=== PATIENT | male | born 1935 | race Caucasian/White ===

== ENCOUNTER 2019-05-01 11:08 | Outpatient (CLI) | payer MEDICARE, SELFPAY ==
[2019-05-01 12:34] LABS: ALT 37 U/L (12-78); AST 19 U/L (15-37); Albumin 3.7 g/dL (3.4-5.0); Alkaline Phosphatase 75 U/L (46-116); Anion Gap 9.2 mmol/L (3-11); BUN 15 mg/dL (7-18); Bilirubin, Total 0.4 mg/dL (0.2-1.0); CO2 26.8 mmol/L (21.0-32.0); CREATININE 1.11 mg/dL (0.70-1.30); Calcium 8.9 mg/dL (8.5-10.1); Chloride 104 mmol/L (98-107); Glucose 114 mg/dL (70-100); Potassium 3.8 mmol/L (3.5-5.1); Sodium 140 mmol/L (136-145); Total Protein 7.3 g/dL (6.4-8.2)
[2019-05-01 12:42] LABS: HCT 43.9 % (40.0-50.0); HGB 14.4 g/dL (13.5-17.5); Mean Corp. HGB Concentration 32.8 g/dL (32.0-36.0); Mean Corpuscular Hemoglobin 29.5 pg (27.0-33.0); Mean Platelet Volume 9.5 fL (8.0-11.0); Platelet Count 327 x1000/uL (130-400); RBC 4.88 m/cumm (4.50-6.00); White Blood Cell Count 5.85 k/cumm (4.4-10.8)
== END 2019-05-01 11:28 ==
PROVIDERS: PCP Emergency Medicine; Visit Provider Emergency Medicine
DX: E78.00 Pure hypercholesterolemia, unspecified (principal); I10 Essential (primary) hypertension
CPT/HCPCS: 36415; 80053; 85027

== ENCOUNTER 2020-03-24 18:34 | Outpatient (REF) | payer MEDICARE, SELFPAY ==
[2020-03-24 14:10] LABS: Abs Immature Grans 0.01 k/cumm (0.0-0.09); Absolute Basophil Count 0.03 k/cumm (0.0-0.2); Absolute Eosinophil Count 0.13 k/cumm (0.0-0.7); Absolute Lymphocyte Count 2.36 k/cumm (1.2-3.4); Absolute Monocyte Count 0.44 k/cumm (0.11-0.7); Absolute Neutrophil Count 3.07 k/cumm (1.2-6.7); Basophils % 0.5; Eosinophils % 2.2; HGB 14.3 g/dL (13.5-17.5); Immature Grans % 0.2 %; Lymphocytes % 39.1; Mean Corp. HGB Concentration 33.3 g/dL (32.0-36.0); Mean Corpuscular Hemoglobin 29.9 pg (27.0-33.0); Mean Corpuscular Volume 89.8 fL (80-95); Mean Platelet Volume 10.2 fL (8.0-11.0); Monocytes % 7.3; Neutrophils % 50.7; Platelet Count 315 x1000/uL (130-400); RBC 4.79 m/cumm (4.50-6.00); RBC Distribution Width 13.6 % (11.8-14.1); White Blood Cell Count 6.04 k/cumm (4.4-10.8)
[2020-03-24 14:20] LABS: ALT 40 U/L (16-63); AST 25 U/L (15-37); Albumin 4.1 g/dL (3.4-5.0); Alkaline Phosphatase 62 U/L (46-116); Anion Gap 9.1 mmol/L (3-11); BUN 19 mg/dL (7-18); Bilirubin, Total 0.7 mg/dL (0.2-1.0); C-Reactive Protein 0.07 mg/dL (0.0-0.3); CO2 27.9 mmol/L (21.0-32.0); CREATININE 1.28 mg/dL (0.70-1.30); Calcium 9.2 mg/dL (8.5-10.1); Chloride 102 mmol/L (98-107); Estimated GFR 53.67 (mL/min/1.73m2); Glucose 112 mg/dL (74-106); Potassium 3.7 mmol/L (3.5-5.1); Sodium 139 mmol/L (136-145); Total Protein 7.3 g/dL (6.4-8.2)
== END 2020-03-24 18:54 ==
LOC: LBN 18:34
PROVIDERS: PCP Emergency Medicine; Visit Provider Emergency Medicine
DX: G89.29 Other chronic pain (principal); R10.9 Unspecified abdominal pain; R19.7 Diarrhea, unspecified
CPT/HCPCS: 80053; 85025; 86140

== ENCOUNTER 2020-04-08 18:49 | Outpatient (REF) | payer MEDICARE, SELFPAY | END 2020-04-08 19:09 | LOC: LBN 18:49 | PROVIDERS: PCP Emergency Medicine; Visit Provider Emergency Medicine | DX: R19.7 Diarrhea, unspecified (principal) | CPT/HCPCS: 87324 ==

== ENCOUNTER → 2020-04-27 10:31 | Outpatient (BNVA) | payer MEDICARE, SELFPAY | PROVIDERS: PCP Emergency Medicine; Referring Provider Emergency Medicine; Visit Provider Surgery | DX: Z12.11 Encounter for screening for malignant neoplasm of colon (principal); R19.7 Diarrhea, unspecified; I10 Essential (primary) hypertension | CPT/HCPCS: 99202 ==

== ENCOUNTER 2020-05-05 09:19 | Day surgery (SDC) | payer MEDICARE, SELFPAY ==
--- NOTE | 2020-05-01 13:37 | NUR.NOTE ---
Patient reports he don't know his meds too good Patient advised to bring his medications in their bottles with him the day of his procedure. Patient is very MARSHALL. Nursing Note:
[2020-05-05 09:57] VITALS: BP 150/85; PULSE 67; RESP 16; TEMP 35.9; O2SAT 98
[2020-05-05] MEDS: Lactated Ringers 1,000 ML 80 ML IV (10:31)
--- NOTE | 2020-05-05 11:47 | PDOC.DSDIS_ITS ---
Discharge Plan Disposition Patient Disposition: HOME Condition: Good Discharge Details Reason For Visit: Colonoscopy Attending Provider: Yaneli De La Garza Primary Care Provider: Reji Mcintyre Home Meds and New Rx's Prescriptions: Continued hydrochlorothiazide 25 mg tablet 25 mg PO DAILY Qty: 90 RF: 4 lisinopril 20 mg tablet 20 mg PO DAILY Qty: 90 RF: 4 amlodipine [Norvasc] 10 mg tablet 10 mg PO QAM Qty: 90 RF: 4 aspirin 325 mg tablet,delayed release (DR/EC) 325 mg PO DAILY RF: 0 ascorbate calcium (vitamin C) 500 mg tablet 500 mg PO DAILY RF: 0 BP [place] PO DAILY RF: 0 Prostaxan PO DAILY RF: 0 omeprazole 20 mg capsule,delayed release(DR/EC) 20 mg PO DAILY RF: 0 pravastatin 10 mg tablet 10 mg PO DAILY RF: 0 Discontinued bisacodyl [Dulcolax (bisacodyl)] 5 mg tablet,delayed release (DR/EC) 5 mg PO ONCE Qty: 4 RF: 0 polyethylene glycol 3350 17 gram/dose powder 17 g PO ONCE Qty: 238 RF: 0 Discharge Instructions Additional Instructions: Findings: A large mass is present in the rectum and is the cause of your diarrhea. It appears to be a polyp but we need the biopsy results to say for certain. My office will contact you with biopsy results. Follow up: Plan for an office visit next week to discuss results. Please call if you develop: fevers >101.5 Nausea or Vomiting Abdominal pain that is not transient DAY SURGERY UNIT POST COLONOSCOPY INSTRUCTIONS 1. Because there will be medication in your system for the next 24 hours, you may feel a little sleepy. Your coordination will be affected. Therefore: a. Do not drive or operate dangerous equipment for 24 hours. b. Do not drink alcohol beverages for 24 hours (not even beer). c. Plan to go home and rest for the day. 2. Generally there are no restrictions on your activity after a day or so has gone by, but you may feel a bit fatigued for a few days. 3 After you arrive home you may have a light meal and return to a normal diet as you can tolerate it without feeling sick to your stomach. 4. After surgery, you may feel pain or discomfort. This should be only transient, but if it persists please contact your doctor. 5. If there are any questions regarding the findings of your procedure, please feel free to contact your doctor. 6. If you are unable to contact your doctor with a problem, contact the hospital at [phone]. 7. Continue all your regular medications unless directed otherwise. I understand the above instructions and have no questions. Signature of Patient or Responsible Adult Escort Date/Time Name of Responsible Adult Escort Signature of Nurse Date/Time Referrals: Yaneli De La Garza MD [ [facility] STAFF PHYSICIAN] - (Return next week to discuss biopsy results.) Activity:: Activity as Tolerated Diet:: As Tolerated Discharge Orders Discharge Orders: Discharge Order (Routine); Ordered 05/05/20 Ordered By: Yaneli De La Garza DS: Diagnosis Discharge Diagnosis (1) Rectal mass: Status: Acute
--- NOTE | 2020-05-05 11:48 | COLE_ITS ---
Date of service: 05/05/20 Time of Service: 12:47 Colonoscopy Report Date of procedure: 05/05/20 Pre-op diagnosis general: Screening Post-op diagnosis procedure note: other (Rectal mass, diverticulosis) Procedure: Colonoscopy with biopsy Surgeon: Yaneli De La Garza Anesthesia proc note operative: MAC Indications: This patient presents for his first colonoscopy. He does note an increase in stool frequency up to 8 times/day. Stool cultures negative. Procedure Description: The patient was placed in the left Retana position. Propofol was titrated to sedation. The scope was advanced to the cecum without difficulty. The ileocecal valve and appendiceal orifice were clearly id entified. The prep was good. The scope was slowly withdrawn over the course of greater than 6 minutes with no abnormalities seen in the ascending, transverse, descending, sigmoid colon with the exception of mild diverticulosis. In the rectum a large mass was present that appears to be a benign polyp. This is located a few cm from the anal opening and extends to about 15cm. Several biopsies are performed. JONATHAN reveals the mass to be more in the posterior rectum, slightly to the patient's left. The mid portion of the polyp base can be reached with the digital exam. The patient tolerated the procedure well and was stable to recovery. If the biopsies confirm a benign polyp, we will proceed with a transanal excision in the OR.
--- NOTE | 2020-05-05 12:28 | BOWEL_PTH ---
PATIENT: Geronimo Teague Sr LOC: [facility] U#:[id number] AGE/SX: 84/M ROOM: RE05/05/[address]: Yaneli De La Garza MD : [id number] BED: DIS: 05/05/2020 SPEC #: [id number] RECD: 05/05/20 12:55 STATUS: MARIOLA REQ #: [id number] ALIREZA: 05/05/20 12:[address]: Yaneli De La Garza DEPT: Surgical Specimen RECD BY: Latosha Quintero ENTERED: 05/05/20 12:55 SP TYPE: Bowel OTHR DR: Reji Mcintyre DO Tissues: 1 - BIOPSY BOWEL Procedures: GROSS AND MICRO LEVEL 4 Comments: [id number]
[2020-05-05 13:20] VITALS: BP 140/73; PULSE 98; RESP 16; TEMP 36.2; O2SAT 98
== END 2020-05-05 13:43 | disposition home or self-care (01) ==
PROVIDERS: PCP Emergency Medicine; Visit Provider Surgery
PROC: 0DJD8ZZ Inspection of Lower Intestinal Tract, Via Natural or Artificial Opening Endoscopic (ICD-10-PCS; CPT 45378; principal; 2020-05-05 10:15)
DX: Z12.11 Encounter for screening for malignant neoplasm of colon (principal); K57.30 Diverticulosis of large intestine without perforation or abscess without bleeding; D12.8 Benign neoplasm of rectum; I10 Essential (primary) hypertension; K21.9 Gastro-esophageal reflux disease without esophagitis; J44.9 Chronic obstructive pulmonary disease, unspecified
CPT/HCPCS: 45380; 88305; J2001

== ENCOUNTER → 2020-05-11 10:39 | Outpatient (BNVA) | payer MEDICARE, SELFPAY | PROVIDERS: PCP Emergency Medicine; Referring Provider Emergency Medicine; Visit Provider Surgery | DX: D37.5 Neoplasm of uncertain behavior of rectum (principal); I10 Essential (primary) hypertension | CPT/HCPCS: 99213 ==

== ENCOUNTER 2020-05-19 00:55 | Outpatient (CLI) | payer MEDICARE, SELFPAY ==
--- NOTE | 2020-05-19 09:26 | DI.US_ITS ---
APPROVED REPORT EXAM: Comprehensive 2D, Doppler, and color-flow Echocardiogram Patient Location: Out-Patient Entry Level Sales Associate: Jordyn Hernandez RDCS (AE) Other Information Study Quality: Fair Conclusion Normal left ventricular wall thickness and chamber size. Estimated ejection fraction is 60 to 65%. There are no segmental wall motion abnormalities Normal right ventricular size and systolic function Left atrium is mildly dilated Right atrium is normal in size The aortic valve is trileaflet and sclerotic with trace regurgitation and mild stenosis. Mean gradie nt is 12 mmHg, peak gradient 22 mmHg Moderate mitral annular calcification. Mild mitral regurgitation Structurally normal tricuspid and pulmonic valves. Trace pulmonic and tricuspid regurgitation. Norm al estimated right ventricular systolic pressure 24.6 mmHg Mildly dilated ascending aorta, measuring 3.9 cm Wall motion Left Ventricle The left ventricle is normal size. The left ventricular systolic function is normal. The left ventric ular ejection fraction is within the normal range. There is normal left ventricular wall thickness. T here is normal LV segmental wall motion. There is no ventricular septal defect visualized. LVEF is 60 -65%. Right Ventricle The right ventricle is normal size. The right ventricular systolic function is normal. The RVSP is 24 .6 mmHg. Atria Left atrium is mildly dilated. The right atrium size is normal. The interatrial septum is intact with no evidence for an atrial septal defect. Aortic Valve Aortic valve is calcified. Aortic valve is trileaflet. Mild aortic stenosis. Peak aortic valve gradie nt is 22.0mmHg. Highest mean aortic valve gradient is 12.3mmHg. Calculated LIANNE by the continuity equa tion is 3.94cm2. Trace aortic regurgitation. Mitral Valve Moderate mitral annular calcification. No evidence of mitral valve stenosis. Mild mitral regurgitatio n. Tricuspid Valve The tricuspid valve is normal in structure. There is no tricuspid valve stenosis. Trace tricuspid reg urgitation. Pulmonic Valve The pulmonary valve is normal in structure. There is no pulmonic valvular stenosis. Trace pulmonic re gurgitation. Great Vessels Aortic root is mildly dilated. The ascending aorta is moderately dilated. 3.9 cm IVC is normal in siz e and collapses >50% with inspiration. Pericardium There is no pericardial effusion. 2D Dimensions IVSD d PLAX 1.16 cm M: 0.6-1.2 LV Vol A2C d MOD 106.7 mL LVPW d PLAX 1.17 cm M: 0.6 - 1.2 LV Vol A4C d MOD 121.8 mL LVID d PLAX 4.24 cm M: 4.2 - 5.8 LA vol/ BSA A2C s A-L 31.1 mL/m2 LVDs 2.80 cm M: 2.5 - 4.0 LA vol/ BSA A4C s A-L 52.0 mL/m2 Ao Root d 3.93 cm M: 3.1 - 3.7 LA Vol/ BSA Biplane s A-L 45.4 mL/m2 RA Area A4C 17.44 cm2 LA Area A4C s MOD 31.94 cm2 RA Vol/ BSA A4C s A-L 22.7 mL/m2 LA Area A2C s MOD 21.89 cm2 Ao Asc Diam d 3.89 cm M: 2.6 - 3.4 LV EF A4C MOD 47.8 % LV EF Teichholz 61.9 % LV EF A2C MOD 50.2 % LVEF (Silver's) 48.33 % M: 52 - 72 LV EF Biplane MOD 48.3 % LV Volume 82.70 mL M: 62 - 150 SV 55.09 mL LV Volume Index 37.42 mL/m2 M: 34 - 74 SV Index 24.85 mL/m2 LV Vol Biplane MOD 114.0 mL FS 32.95 % M-Mode TAPSE 2.71 cm (M/F) >1.7 LV Diastology MV E' medial 0.049 (>0.07 m/s) E/A Ratio 0.8 LV E/e MED 16.80 (<14) MV E Vmax 0.82 (0.4-1.3 m/s) MV E' lateral 0.092 (>0.1 m/s) MV A Vmax 1.00 (0.4-1.3 m/s) LV E/e LAT 8.90 (<14) MV E/A Ratio 0.82 MV E/E' medial 16.80 MV E/E' lateral 8.92 Aortic Valve LVOT Area 6.02 cm2 AoV Area Vmax 3.94 cm2 LVOT Vmax 1.54 m/s AoV Area/ BSA (Vmax) 1.78 cm2/m2 LVOT Mean Leobardo. 1.13 m/s LIANNE Mean Leobardo. 4.18 cm2 LVOT Peak Grad 9.4 mmHg LIANNE Mean Leobardo. Index 1.88 cm2/m2 LVOT Mean Grad 5.6 mmHg LVOT VTI 0.364 m LVOT Diam s 2.75 cm AoV Vmax 2.35 m/s Velocity Ratio 0.65 AoV Mean Leobardo. 1.62 m/s AoV Peak Grad 22.0 mmHg LVOT SV 219.36 mL AoV Mean Grad 12.3 mmHg AoV VTI 0.444 m AoV Area VTI 4.94 cm2 AoV Area/ BSA (VTI) 2.23 cm/m2 Mitral Valve MV DT 358 (160-240 msec) MV PHT 104 msec MV Area PHT 2.12 cm2 MV VTI 0.425 m MV Area VTI 5.16 (4.0-6.0 cm2) Pulmonary Valve PV Vmax 0.90 (0.5-1.5 m/s) RVOT Peak Gr. 0.86 mmHg PV Peak Grad 3.2 mmHg RVOT Mean Gr. 0.40 mmHg PV Mean Grad 1.6 mmHg RVOT VTI 0.096 m PV VTI 0.169 m RVOT Vmax 0.46 m/s Tricuspid Valve TR Peak Grad 21.5 mmHg TR Vmax 2.32 m/s RA Pressure 3.00 mmHg RVSP (TR) 24.6 mmHg
== END 2020-05-19 01:15 ==
PROVIDERS: PCP Emergency Medicine; Visit Provider Surgery
DX: I08.1 Rheumatic disorders of both mitral and tricuspid valves (principal); I77.810 Thoracic aortic ectasia
CPT/HCPCS: 93306

== ENCOUNTER 2020-05-22 03:04 | Outpatient (CLI) | payer MEDICARE, SELFPAY ==
[2020-05-24 17:41] LABS: COVID-19 RT-PCR Result NEGATIVE (Negative)
== END 2020-05-22 03:24 ==
PROVIDERS: PCP Emergency Medicine; Visit Provider Surgery
DX: Z11.59 Encounter for screening for other viral diseases (principal); Z01.818 Encounter for other preprocedural examination
CPT/HCPCS: U0003

== ENCOUNTER 2020-05-26 10:14 | Observation (INO) | payer MEDICARE, SELFPAY ==
[2020-05-26] VITALS (12 sets, daily range): BP systolic 128–160; BP diastolic 71–85; PULSE 63–95; RESP 16–24; TEMP 36.2–37.7; O2SAT 92–99
[2020-05-26] MEDS: Lactated Ringers 1,000 ML 80 ML IV (06:54)
[2020-05-26] MEDS: levoFLOXacin 500 MG/100 ML BAG 100 MG IVPB (07:01)
--- NOTE | 2020-05-26 07:25 | W.PM.HP.N ---
Date of service: 05/26/20 Time of Service: 07:25 Assessment and Plan Assessment and plan (1) Rectal mass: Status: Acute Assessment and plan: The biopsies of the rectal mass show a benign villous adenoma. This is consistent with the appearance of the mass. I advise transanal excision. The risks of infection, bleeding, pain, recurrence discussed. He declines a spinal anesthetic. Preop ECHO showed mild valve disease Patient advised to do an enema at home prior to arrival for surgery but was not able to do so, will be done this morning in preop. History of Present Illness Narrative: Presents for transanal excision of a rectal polyp found during colonoscopy to evaluate diarrhea. 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 Social History Smoking/Tobacco Use Status: Former Tobacco Use Tobacco: How many years used: 20 Alcohol Intake: never Drug use: Never Substance use type: does not use Do you feel safe at home: Yes Do you feel safe in your relationship?: Yes Meds Home Medications and Allergies Home Medications Medication Instructions Recorded Confirmed Type BP [employer] [place] PO DAILY 05/01/19 05/11/20 History Prostaxan PO DAILY 05/01/19 05/11/20 History aspirin 325 mg tablet,delayed 325 mg PO DAILY 05/01/19 05/26/20 History release omeprazole 20 mg capsule,delayed 20 mg PO DAILY tab-cap 05/01/19 05/26/20 History release pravastatin 10 mg tablet 10 mg PO DAILY tab-cap 05/01/19 05/26/20 History amlodipine 10 mg tablet 10 mg PO QAM #90 tab 02/11/20 05/26/20 Rx hydrochlorothiazide 25 mg tablet 25 mg PO DAILY #90 tab-cap 02/11/20 05/26/20 Rx lisinopril 20 mg tablet 20 mg PO DAILY #90 tab-cap 02/11/20 05/26/20 Rx Allergies Allergy/AdvReac Type Severity Reaction Status Date / Time Penicillins Allergy Mild HIVES A Verified 05/26/20 06:26 CHILD Exam Narrative Exam Narrative: Alert Lungs CTA Heart RRR, murmur present Abdomen soft, nontender Results Last Vital Signs Temp 97.7 F 05/26/20 06:38 Pulse 69 05/26/20 06:38 Resp 22 05/26/20 06:38 BP 160/84 H 05/26/20 06:38 Pulse Ox 96 05/26/20 06:38 COVID-19 Screening Have you,or household,traveled outside [place] in last 14 days?: No Had IN PERSON contact w/suspected or confirmed C-19 person: No
[2020-05-26] MEDS: metroNIDAZOLE 500 MG/100 ML BAG 100 MG IVPB (08:00)
--- NOTE | 2020-05-26 08:11 | BOWEL_PTH ---
PATIENT: Geronimo Teague Sr LOC: [id number]#:[id number] AGE/SX: 84/M ROOM: RE05/26/[address]: Yaneli De La Garza MD : 1935 BED: A DIS: 05/26/2020 SPEC #: [id number] RECD: 05/26/20 12:45 STATUS: MARIOLA REQ #: [id number] ALIREZA: 05/26/20 08:[address]: Yaneli De La Garza DEPT: Surgical Specimen RECD BY: Latosha Quintero ENTERED: 05/26/20 12:46 SP TYPE: Bowel OTHR DR: Reji Mcintyre DO Tissues: 1 - BIOPSY BOWEL Procedures: GROSS AND MICRO LEVEL 4 Comments: [id number]
[2020-05-26] MEDS: Gelatin SPONGE 12-7 MM PKT 1 EACH TP (09:05)
[2020-05-26] MEDS: Bupivacaine LIPOSOME/PF 133 MG/10 ML VIAL IJ (09:05)
--- NOTE | 2020-05-26 11:01 | W.PM.OP ---
Date of service: 05/26/20 Time of Service: 11:01 Operative Note Operative Note DATE OF PROCEDURE: 05/26/20 PRE-OP DIAGNOSIS: Rectal tubulovillous adenoma POST-OP DIAGNOSIS: same PROCEDURE: Transanal excision of rectal polyp. Proctoscopy SURGEON: Yaneli De La Garza MANUAL TRAINING TEACHER: Bria Diallo ANESTHESIA: GETA and local Indications: This 84 year old man presented for his first colonoscopy to evaluate diarrhea. This showed a large rectal polyp with biopsy confirming a tubulovillous adenoma Procedure Description: The patient was placed in the supine position and after induction of general anesthetic was placed in stirrups. His perianal region was prepped and draped sterilely. Digital rectal examination confirmed that the mass was located in the posterior midline. The bivalve anoscope was introduced and the low rectal region cleansed with Betadine. The mass was located in about 5 cm just distal to the first rectal valve. The top of the polyp was grasped with Allis and a 3-0 PDS stitch placed proximal to the polyp. The mucosa was divided with cautery. This was done circumferentially. The mass was quite large and fragmented with grasping. The base probably measured 3 cm. Once the mass was removed the mucosa was closed with a running locked 3-0 PDS. This is resulted in some narrowing of the mucosa so I removed this and replaced it with interrupted 3-0 PDS sutures There was some minimal narrowing of the rectum but I could easily pass the proctoscope through the area. There is a small residual mucosal defect with the muscularis of the rectal wall exposed above the suture line. There is good hemostasis. The incision area was infiltrated with 10 cc of Exparel. A Gelfoam was placed. He tolerated the procedure well and was stalbe to recovery.
--- NOTE | 2020-05-26 14:57 | W.PM.PROGNOT ---
Date of Service Date of service: 05/26/20 Time of Service: 14:57 Assessment and Plan Assessment and plan (1) Rectal mass: Status: Acute Assessment and plan: The patient would like to go home. Since his pain control is good, this is reasonable. He was advised to contact me for any fever or significant bleeding. Subjective Subjective Interval history since last seen: Patient denies pain. Has been able to void small amounts, which is typical for him. Minimal amount of bloody discharge when voiding. Objective Objective Clinical Data: Vital Signs Temperature 99.5 F 05/26/20 14:42 Temperature Source Tympanic 05/26/20 14:42 Pulse 90 05/26/20 14:42 Pulse Rhythm Regular 05/26/20 06:38 Respiratory Rate 18 05/26/20 14:42 Respiratory Depth Normal 05/26/20 06:38 Blood Pressure 143/83 H 05/26/20 12:02 Pulse Oximetry 92 L 05/26/20 14:42 Respiratory End-tidal CO2 30 05/26/20 11:08 Oxygen Delivery Method Room Air 05/26/20 12:02 Oxygen Flow Rate 0 05/26/20 12:02 Pain Level 0 05/26/20 14:42 Intake & Output 05/25/20 05/26/20 05/26/20 23:59 11:59 23:59 Intake Total 750 / 750 Output Total 200 / 200 Balance 550 / 550 Weight 227 lb 11.8 oz Intake: IV 750 / 750 Output: Estimated Blood Loss 200 / 200 Other: Urine Color Pale Urine Odor None Comment little bit of blood. Stool Characteristics Soft Emesis Description None Voiding Methods Toilet
--- NOTE | 2020-05-26 14:59 | W.PM.DS.N ---
Date of service: 05/26/20 Time of Service: 14:59 DS: Diagnosis Discharge Diagnosis (1) Rectal mass: Status: Acute Discharge Plan Disposition Patient Disposition: HOME Condition: Good Discharge Details Reason For Visit: RECTAL MASS Admit Date/Time: 05/26/20 10:14 Admit Provider: Yaneli De La Garza Attending Provider: Yaneli De La Garza Primary Care Provider: Reji Mcintyre Hospital Course Hospital Course: The patient had transanal excision of a rectal polyp. Due to concerns about pain control and bleeding, he was placed in observation. When re-evaluated later in the day, he had no pain, was able to void and had no significant bleeding. He requested discharge which was felt to be reasonable. Home Meds and New Rx's Prescriptions: New ciprofloxacin HCl 500 mg tablet 500 mg PO BID Qty: 14 RF: 0 metronidazole [Flagyl] 500 mg tablet 500 mg PO TID Qty: 21 RF: 0 docusate sodium [Colace] 100 mg capsule 100 mg PO BID Qty: 14 RF: 0 Discontinued aspirin 325 mg tablet,delayed release (DR/EC) 325 mg PO DAILY RF: 0 No Action hydrochlorothiazide 25 mg tablet 25 mg PO DAILY Qty: 90 RF: 4 lisinopril 20 mg tablet 20 mg PO DAILY Qty: 90 RF: 4 amlodipine [Norvasc] 10 mg tablet 10 mg PO QAM Qty: 90 RF: 4 BP [place] PO DAILY RF: 0 Prostaxan PO DAILY RF: 0 omeprazole 20 mg capsule,delayed release(DR/EC) 20 mg PO DAILY RF: 0 pravastatin 10 mg tablet 10 mg PO DAILY RF: 0 Discharge Instructions Additional Instructions: Make sure to avoid constipation. Take the stool softener (Colace) twice a day unless you start to have diarrhea. Hold your aspirin for 5 days, then resume. A small amount of bleeding is expected but if you have a large amount, call the office or the sales administration manager surgeon. Contact us for any fever or increased pain Referrals: Yaneli De La Garza MD [ [facility] STAFF PHYSICIAN] - (Return to the office next Monday) Activity:: Activity as Tolerated Equipment/Supplies:: No Equipment Needed Diet:: As Tolerated DS: Summary Status at Discharge Functional status at discharge: uses cane/walker Overall status at discharge: patient is progressing back to baseline Mental Status: mental status grossly normal Speech and Movement: speech and movement normal Mood: congruent mood Affect: normal affect Exam Psych Mental Status: mental status grossly normal Speech and Movement: speech and movement normal Mood: congruent mood Affect: normal affect DS: Data Vitals/I&O Vitals and I&O: Vital Signs Temperature 99.5 F 05/26/20 14:42 Temperature Source Tympanic 05/26/20 14:42 Pulse 90 05/26/20 14:42 Pulse Rhythm Regular 05/26/20 06:38 Respiratory Rate 18 05/26/20 14:42 Respiratory Depth Normal 05/26/20 06:38 Blood Pressure 143/83 H 05/26/20 12:02 Pulse Oximetry 92 L 05/26/20 14:42 Respiratory End-tidal CO2 30 05/26/20 11:08 Oxygen Delivery Method Room Air 05/26/20 12:02 Oxygen Flow Rate 0 05/26/20 12:02 Pain Level 0 05/26/20 14:42 Intake & Output 05/25/20 05/26/20 05/26/20 23:59 11:59 23:59 Intake Total 750 / 750 Output Total 200 / 200 Balance 550 / 550 Weight 227 lb 11.8 oz Intake: IV 750 / 750 Output: Estimated Blood Loss 200 / 200 Other: Urine Color Pale Urine Odor None Comment little bit of blood. 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
--- NOTE | 2020-05-26 15:16 | NUR.NOTE ---
Nursing Note: Admitted from PACU @ 1113 . Pt stood @ bedside, used toilet and sat in recliner. No bleeding noted on gauze in mesh panties. Pt PRAIRIE BAND. denies pain. VSS. Will continue to monitor.
== END 2020-05-26 17:25 | disposition home or self-care (01) ==
LOC: SUR 10:25 → MS 11:09
PROVIDERS: Admitting Provider Surgery; PCP Emergency Medicine; Visit Provider Surgery
PROC: 0DBP7ZZ Excision of Rectum, Via Natural or Artificial Opening (ICD-10-PCS; CPT 46040; principal; 2020-05-26 07:30)
DX: D12.8 Benign neoplasm of rectum (principal); I10 Essential (primary) hypertension
CPT/HCPCS: 45171; 88305; NC; G0378; J1956; J2001; J2704

== ENCOUNTER → 2022-07-19 13:26 | Outpatient (BNVA) | payer MEDICARE, SELFPAY | PROVIDERS: PCP Nurse Practitioner; Referring Provider Nurse Practitioner; Visit Provider Surgery | DX: Z86.010 Personal history of colon polyps (principal); Z12.11 Encounter for screening for malignant neoplasm of colon ==

== ENCOUNTER 2022-10-13 01:17 | Outpatient (CLI) | payer MEDICARE, SELFPAY ==
--- NOTE | 2022-10-13 06:30 | DI.US_ITS ---
APPROVED REPORT EXAM: Comprehensive 2D, Doppler, and color-flow Echocardiogram Patient Location: Out-Patient Automation Lead: Jordyn Hernandez RDCS (AE) Indications: f/u Aortic stenosis, Pre-op, Mitral Murmur Other Information Study Quality: Adequate Conclusion Normal left ventricular wall thickness and chamber size. Estimated ejection fraction is 55%. Wall m otion is normal Normal right ventricular size and systolic function The left atrium is moderately dilated. The right atrium is normal Aortic valve is trileaflet and mildly sclerotic. There is trace aortic regurgitation. There is mild aortic stenosis. Peak gradient is 28, mean 13, calculated aortic valve area 1.43 cm?? Moderate mitral annular calcification with mild to moderate eccentric mitral regurgitation Normal tricuspid valve with moderate regurgitation. Estimated right ventricular systolic pressure is 25 mmHg Dilated aortic root (4.18) and ascending aorta (3.85 cm) Wall motion Left Ventricle The left ventricle is normal size. The left ventricular systolic function is normal. The left ventric ular ejection fraction is within the normal range. There is normal left ventricular wall thickness. T here were no segmental wall motion abnormalities There is no ventricular septal defect visualized. LV EF is 55%. Right Ventricle Right ventricle is grossly normal in size. Right ventricular systolic function is grossly normal. The RVSP is 25.0 mmHg. Atria Left atrium is moderately dilated. The right atrium size is normal. The interatrial septum is intact with no evidence for an atrial septal defect. Aortic Valve The aortic valve is mildly sclerotic and trileaflet Mild aortic stenosis. Peak aortic valve gradient is 28.1_mmHg. Highest mean aortic valve gradient is 16.0mmHg. Calculated LIANNE by the continuity equati on is 1.43cm2. Trace aortic regurgitation. Mitral Valve There is moderate annular calcification. No evidence of mitral valve stenosis. Mild to moderate giovanny l regurgitation. Mitral regurgitation jet is eccentrically directed. Tricuspid Valve The tricuspid valve is normal in structure. There is no tricuspid valve stenosis. Moderate tricuspid regurgitation. Pulmonic Valve The pulmonary valve is normal in structure. There is no pulmonic valvular stenosis. Trace pulmonic re gurgitation. Great Vessels Aortic root is mildly dilated. The ascending aorta is mildly dilated. Aortic arch is normal in calib er. IVC is normal in size and collapses >50% with inspiration. Pericardium There is no pericardial effusion. 2D Dimensions IVSD d PLAX 0.96 cm M: 0.6-1.2 LV Vol A2C d MOD 125.0 mL LVPW d PLAX 0.97 cm M: 0.6 - 1.2 LV Vol A4C d MOD 138.2 mL LVID d PLAX 4.65 cm M: 4.2 - 5.8 LA vol/ BSA A2C s A-L 39.8 mL/m2 LVDs 3.55 cm M: 2.5 - 4.0 LA vol/ BSA A4C s A-L 32.1 mL/m2 Ao Root d 4.18 cm M: 3.1 - 3.7 LA Vol/ BSA Biplane s A-L 39.0 mL/m2 RA Area A4C 17.40 cm2 LA Area A4C s MOD 23.61 cm2 RA Vol/ BSA A4C s A-L 20.9 mL/m2 LA Area A2C s MOD 24.11 cm2 Ao Asc Diam d 3.85 cm M: 2.6 - 3.4 LV EF A4C MOD 45.5 % LV EF Teichholz 46.8 % LV EF A2C MOD 46.7 % LVEF (Silver's) 45.56 % M: 52 - 72 LV EF Biplane MOD 45.6 % LV Volume 95.99 mL M: 62 - 150 SV 59.90 mL LV Volume Index 44.03 mL/m2 M: 34 - 74 SV Index 27.56 mL/m2 LV Vol Biplane MOD 131.5 mL FS 23.30 % M-Mode TAPSE 2.27 cm (M/F) >1.7 LV Diastology MV E' medial 0.051 (>0.07 m/s) E/A Ratio 0.9 LV E/e MED 18.10 (<14) MV E Vmax 0.93 (0.4-1.3 m/s) MV E' lateral 0.087 (>0.1 m/s) MV A Vmax 1.05 (0.4-1.3 m/s) LV E/e LAT 10.65 (<14) MV E/A Ratio 0.86 MV E/E' medial 18.14 MV E/E' lateral 10.68 Aortic Valve LVOT Area 4.01 cm2 AoV Area Vmax 1.43 cm2 LVOT Vmax 0.95 m/s AoV Area/ BSA (Vmax) 0.66 cm2/m2 LVOT Mean Leobardo. 0.61 m/s LIANNE Mean Leobardo. 1.29 cm2 LVOT Peak Grad 3.6 mmHg LIANNE Mean Leobardo. Index 0.59 cm2/m2 LVOT Mean Grad 1.7 mmHg AR DT 1850 msec LVOT VTI 0.246 m AR PHT 536 msec LVOT Diam s 2.25 cm AoV Vmax 2.65 m/s Velocity Ratio 0.36 AoV Mean Leobardo. 1.89 m/s AoV Peak Grad 28.1 mmHg LVOT SV 98.66 mL AoV Mean Grad 16.0 mmHg AoV VTI 0.584 m AoV Area VTI 1.69 cm2 AoV Area/ BSA (VTI) 0.78 cm/m2 Mitral Valve MV DT 358 (160-240 msec) MV PHT 104 msec MV Area PHT 2.12 cm2 MV VTI 0.480 m MV Area VTI 2.06 (4.0-6.0 cm2) Pulmonary Valve PV Vmax 0.90 (0.5-1.5 m/s) RVOT Peak Gr. 0.66 mmHg PV Peak Grad 3.2 mmHg RVOT Mean Gr. 0.35 mmHg PV Mean Grad 1.7 mmHg RVOT VTI 0.079 m PV VTI 0.184 m RVOT Vmax 0.41 m/s Tricuspid Valve TR Peak Grad 22.0 mmHg TR Vmax 2.35 m/s RA Pressure 3.00 mmHg RVSP (TR) 25.0 mmHg
== END 2022-10-13 01:37 ==
PROVIDERS: PCP Nurse Practitioner Family; Visit Provider Surgery
DX: I34.0 Nonrheumatic mitral (valve) insufficiency (principal); I35.0 Nonrheumatic aortic (valve) stenosis; Z12.11 Encounter for screening for malignant neoplasm of colon
CPT/HCPCS: 93306

== ENCOUNTER → 2022-11-08 10:19 | Outpatient (BNVA) | payer MEDICARE, SELFPAY | PROVIDERS: PCP Nurse Practitioner Family; Referring Provider Nurse Practitioner Family; Visit Provider Surgery | DX: K62.5 Hemorrhage of anus and rectum (principal); I35.0 Nonrheumatic aortic (valve) stenosis; D36.9 Benign neoplasm, unspecified site; I34.0 Nonrheumatic mitral (valve) insufficiency; R19.7 Diarrhea, unspecified | CPT/HCPCS: 99212; 99214 ==

== ENCOUNTER 2022-11-08 11:38 | Outpatient (CLI) | payer MEDICARE, SELFPAY ==
[2022-11-08 11:24] LABS: Abs Immature Grans 0.03 10^3/uL (0.0-0.06); Absolute Basophil Count 0.06 10^3/uL (0.0-0.2); Absolute Eosinophil Count 0.15 10^3/uL (0.0-0.7); Absolute Lymphocyte Count 1.85 10^3/uL (1.2-3.4); Absolute Monocyte Count 0.59 10^3/uL (0.1-0.8); Absolute Neutrophil Count 5.37 10^3/uL (1.2-6.7); Basophils % 0.7; Eosinophils % 1.9; HCT 46.5 % (40.0-50.0); Immature Grans % 0.4; MCH 29.4 pg (27.0-33.0); MCHC 32.3 % (32.0-36.0); MCV 91 fL (80-95); MPV 9.1 fL (8.0-11.0); Monocytes % 7.3; Neutrophils % 66.7; Platelet Count 223 10^3/uL (130-400); RBC 5.11 10^6/uL (4.36-5.78); RDW 13.3 % (11.8-14.1); RDW-SD 45.5 fL; WBC 8.05 10^3/uL (4.4-10.8)
[2022-11-08 12:22] LABS: ALT 27 U/L (16-63); AST 21 U/L (15-37); Albumin 4.1 g/dL (3.4-5.0); Alkaline Phosphatase 68 U/L (46-116); Anion Gap 9.8 mmol/L (3-11); BUN 20 mg/dL (7-18); Bilirubin, Total 0.8 mg/dL (0.2-1.0); CO2 26.2 mmol/L (21.0-32.0); CREATININE 1.2 mg/dL (0.70-1.30); Calcium 9.4 mg/dL (8.5-10.1); Chloride 106 mmol/L (98-107); Estimated GFR 58.89 (mL/min/1.73m2); Ferritin 74 ng/mL (26-388); Folate > 20.0 ng/mL (8.6-20.0); Glucose 108 mg/dL (74-106); Sodium 142 mmol/L (136-145); Total Protein 7.6 g/dL (6.4-8.2); Vitamin B12 847 pg/mL (193-986)
[2022-11-08 12:35] LABS: Iron 60 ug/dL (65-175); Total Iron Binding Capacity 364 ug/dL (250-450); Transferrin Sat 16 % (20-55)
== END 2022-11-08 11:39 | disposition home or self-care (01) ==
LOC: LBO 11:39
PROVIDERS: PCP Nurse Practitioner Family; Visit Provider Surgery
DX: D36.9 Benign neoplasm, unspecified site (principal); D50.0 Iron deficiency anemia secondary to blood loss (chronic); E78.5 Hyperlipidemia, unspecified; I10 Essential (primary) hypertension; I34.0 Nonrheumatic mitral (valve) insufficiency; I35.0 Nonrheumatic aortic (valve) stenosis; J44.9 Chronic obstructive pulmonary disease, unspecified; K00.0 Anodontia; K62.5 Hemorrhage of anus and rectum; N40.0 Benign prostatic hyperplasia without lower urinary tract symptoms; R01.1 Cardiac murmur, unspecified; R19.7 Diarrhea, unspecified; Z87.891 Personal history of nicotine dependence; Z96.649 Presence of unspecified artificial hip joint; M10.9 Gout, unspecified
CPT/HCPCS: 36415; 80053; 99214; 82607; 82728; 82746; 83540; 83550; 85025

== ENCOUNTER 2022-12-13 06:08 | Day surgery (SDC) | payer MEDICARE, SELFPAY ==
[2022-12-13 06:15] VITALS: BP 180/92; PULSE 59; RESP 16; TEMP 36.5; O2SAT 97
--- NOTE | 2022-12-13 07:03 | W.ANESPRE ---
General Info Date of Service Date Performed: 12/13/22 Height: 5 ft 10 in Weight: 101.5 kg Body Mass Index (BMI): 32.1 Surgical Procedure: Operation Date: 12/13/22 07:40 Proposed Procedure Side Surgeon p Flexible Sigmoidoscopy, possible Polypectomy Ish Phillips MD Actual Procedure Side Surgeon p Flexible Sigmoidoscopy, possible Polypectomy Not Applicable Ish Phillips MD Meds Allergies and Home Medications Allergies Allergy/AdvReac Type Severity Reaction Status Date / Time Penicillins Allergy Mild HIVES A Verified 12/13/22 06:30 CHILD Home Medication Medication Instructions Recorded hydrochlorothiazide 25 mg tablet 25 mg PO DAILY #90 tab-caps 06/08/22 lisinopril 20 mg tablet 20 mg PO DAILY #90 tab-caps 06/08/22 Current Visit Medications: Current Medications Generic Name Dose Route Start Last Admin Trade Name Freq PRN Reason Stop Dose Admin Ringer's Solution 1,000 mls @ 50 mls/hr 12/13/22 06:00 IV 01/11/23 23:59 INFUSION GRISELDA IV Miscellaneous Supplies 1 each 12/13/22 06:00 Iv Access IV 01/11/23 23:59 DIRECTED GRISELDA Sodium Biphosphate/Sodium Phosphate 133 ml 12/13/22 06:00 12/13/22 06:51 Na Phosphate Enema 133 Ml Btl OR 12/13/22 18:00 2 btl PREOP PRN Administration Sodium Chloride 0 ml 12/13/22 06:00 Normal Saline Flush 10 Ml Syr IV 01/11/23 23:59 PRN PRN Sodium Chloride 0 ml 12/13/22 06:00 Normal Saline 10 Ml Vial IJ 01/11/23 23:59 DIRECTED PRN Sterile Water 0 ml 12/13/22 06:00 Water,Injection,Sterile 10 Ml Vial IJ 01/11/23 23:59 DIRECTED PRN PFSH Active Problems Active Problems: Problem Status Onset Code Hard of hearing H91.90 Rectal bleeding K62.5 Iron deficiency anemia due to chronic blood loss D50.0 Aortic stenosis I35.0 Gout M10.9 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 Mitral murmur 02/15/17 I34.0 Hyperplasia of prostate N40.0 Hyperlipidemia 08/20/12 E78.5 History of tobacco use Z87.891 Gout M10.9 Generalized 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 M15.9 Edentulous 10/25/17 K00.0 Colonoscopy refused 10/25/17 Z53.20 Chronic obstructive lung disease J44.9 Cardiac murmur 10/25/17 R01.1 Cardiac murmur, unspecified R01.1 Bilateral hearing loss 10/25/17 H91.93 Rectal mass K62.89 Chronic abdominal pain R10.9, G89.29 Diarrhea R19.7 Hypertension I10 Medical History Medical History Cataract surgery bilat Surgical History Surgical History History of colonoscopy Tobacco Smoking/Tobacco Use Status: Former Tobacco Use Passive smoking exposure: No Alcohol Alcohol Intake: never Substance Use Substance use: Never Substance use type: does not use Vital Signs and Lab Results Vital Signs Most Recent Vital Signs in EMR: Most Recent Vital Signs Temp Pulse Resp BP Pulse Ox 36.5 C 59 L 16 180/92 H 97 12/13/22 06:15 12/13/22 06:15 12/13/22 06:15 12/13/22 06:15 12/13/22 06:15 Lab Results Blood Type / Crossmatch: No Data to Display Complete Blood Count: No Data to Display Complete Metabolic Panel: No Data to Display Liver Function Panel: No Data to Display Coagulation Panel: No Data to Display Cardiac Panel: No Data to Display Arterial Blood Gas: No Data to Display Venous Blood Gas: No Data to Display Pancreas Panel: No Data to Display Thyroid Panel: No Data to Display Infectious Disease: No Data to Display Blood Cultures: No Data to Display Toxicology Panel: No Data to Display Imaging and Studies Imaging and Studies Study information below may be from another EMR and interpreted by another provider. Please see original notes in EMR for more complete details. Echocardiogram Summary: Conclusion Normal left ventricular wall thickness and chamber size. Estimated ejection fraction is 55%. Wall motion is normal Normal right ventricular size and systolic function The left atrium is moderately dilated. The right atrium is normal Aortic valve is trileaflet and mildly sclerotic. There is trace aortic regurgitation. There is mild aortic stenosis. Peak gradient is 28, mean 13, calculated aortic valve area 1.43 cm?? Moderate mitral annular calcification with mild to moderate eccentric mitral regurgitation Normal tricuspid valve with moderate regurgitation. Estimated right ventricular systolic pressure is 25 mmHg Dilated aortic root (4.18) and ascending aorta (3.85 cm) Anesthesia Assessment and Plan Anesthesia History Personal History: No History of Anesthesia Complications Family History: No Family History of Anesthesia Complications Exercise Tolerance Exercise Tolerance: Metabolic Equivalents<4 Pertinent Negatives Pertinent Negatives: No Symptoms of GERD Cardiac & Pulmonary Exam Cardiac Exam: Heart Murmur Present Pulmonary Exam: Clear Bilateral Breath Sounds Implantable Cardiac Device Does patient have a Pacemaker or an ICD?: No Airway Exam Known Difficult Airway: No Mallampati Class: 4 Mouth Opening: Narrow (< 3cm) Thyromental Distance: Greater than 3 cm Neck Range of Motion: Limited ROM Neck Circumference: Normal Teeth Condition: Edentulous ASA Classification ASA Score: ASA 3 Emergency Case?: No NPO Status NPO Status: NPO Clears >2 hours, Solids >8 hours Anesthesia Plan Resuscitation Status: Full Code Anesthesia Technique: General Anesthesia Airway Planned: Natural Airway Monitors Used: Standard Monitors
[2022-12-13 07:05] VITALS: BMI 32.1
[2022-12-13] MEDS: Lactated Ringers 1,000 ML 50 ML IV (07:08)
--- NOTE | 2022-12-13 07:32 | W.SURGCON ---
Date of service: 12/13/22 Time of Service: 07:35 Assessment and Plan Assessment and plan (1) Rectal bleeding: Status: Acute Assessment and plan: 87-year-old man with a history of a large rectal polyp excised transanal, due for surveillance Plan: Sigmoidoscopy History of Present Illness Narrative: 87-year-old man had a transanal excision of a tubulovillous adenoma. He is due for a sigmoidoscopy surveillance. The index colonoscopy was 3 years ago. PFSH All Active Problems Hard of hearing (Acute) Rectal bleeding (Acute) Iron deficiency anemia due to chronic blood loss (Acute) Aortic stenosis (Chronic) mild echo 2022 Gout (Chronic) Tubulovillous adenoma (Acute ~05/05/20) repeat flex sig 6 months Status post hip replacement (Acute) Mitral murmur (Acute 02/15/17) Hyperplasia of prostate (Acute) Hyperlipidemia (Acute 08/20/12) History of tobacco use (Acute) Gout (Acute) Generalized osteoarthrosis (Acute) Generalized osteoarthrosis (Acute) Edentulous (Acute 10/25/17) Colonoscopy refused (Acute 10/25/17) Chronic obstructive lung disease (Acute) Cardiac murmur (Acute 10/25/17) Cardiac murmur, unspecified (Acute) ? of mitral reguritation Bilateral hearing loss (Acute 10/25/17) Rectal mass (Acute) adenomatous polyp. removed Chronic abdominal pain (Acute) Diarrhea (Acute) Hypertension (Chronic) Medical History Cataract surgery bilat Surgical History History of colonoscopy Social History Smoking/Tobacco Use Status: Former Tobacco Use Tobacco: How many years used: 20 Smoking risk assessment performed?: Yes Alcohol Intake: never Drug use: Never Substance use type: does not use Do you feel safe at home: Yes Do you feel safe in your relationship?: Yes Exam Narrative Exam Narrative: General: Nontoxic and comfortable Neuro: Alert and oriented x3 Psych: Appropriate mood and affect, good insight and understanding into his condition Chest: No wheezing and non-labored breathing Heart: Regular Results Last Vital Signs Temp 97.7 F 03/28/23 06:15 Pulse 59 L 12/13/22 06:15 Resp 16 12/13/22 06:15 BP 180/92 H 12/13/22 06:15 Pulse Ox 97 12/13/22 06:15
--- NOTE | 2022-12-13 07:47 | BOWEL_PTH ---
PATIENT: Geronimo Teague Sr LOC: [facility] U#:[id number] AGE/SX: 87/M ROOM: RE12/13/[address]: Ish Phillips : 1935 BED: DIS: 12/13/2022 SPEC #: [id number] RECD: 12/13/22 12:45 STATUS: MARIOLA REQ #: [id number] ALIREZA: 12/13/22 07:[address]: Ish Phillips DEPT: Surgical Specimen RECD BY: Latosha Quintero ENTERED: 12/13/22 12:46 SP TYPE: Bowel OTHR DR: Mehnaz Clifford, KISHA Tissues: 1 - BIOPSY BOWEL Procedures: GROSS AND MICRO LEVEL 4 Comments: [id number]
--- NOTE | 2022-12-13 07:54 | W.COLOREPORT ---
Date of service: 12/13/22 Time of Service: 07:45 Colonoscopy Report Procedure: Sigmoidoscopy Procedure Description: Procedures performed: 1. Sigmoidoscopy with cold forceps biopsy Preoperative diagnosis: Rectal polyp Postoperative diagnosis: Diverticulosis, rectal polyp, grade 2 internal and external hemorrhoids Surgeon: Hemant Phillips Anesthesia: Anthony Indication for procedure: 87-year-old man with a history of a tubulovillous rectal polyp excised transanal. Due for surveillance. Findings: A large polyp is still present in the rectum. Stalk and base appear to be mostly left?sided. It extends all the way down to the dentate line and into the anal canal. It does not extend more than 10 cm up into the rectum. It does not take up more than 25-30% of the anal canal circumference. Sigmoid diverticulosis is present. Surveillance/follow-up recommendations: He needs repeat transanal excision. Complications: None Blood loss: Minimal Specimens:?? YES Quality of Prep:?? Good Procedure in detail: Written consent was obtained from the patient who was in agreement with the risks, benefits and indications of the procedure.? We went to the endoscopy suite and laid the patient in left lateral decubitus position.? Anesthesia was administered which was tolerated well.? A timeout was performed and when we are all in agreement we began the procedure. Digital rectal exam and visual examination was performed and all tissue can be seen and felt prolapsing. A well?lubricated colonoscope was advanced without difficulty all the way into the sigmoid colon up to about 30-40 cm. No polyps were seen. It was then slowly withdrawn. Biopsies were taken of the rectal polyp. The scope was then removed and the patient tolerated the procedure well and was then taken back to the PACU in hemodynamically stable condition.
[2022-12-13 07:57] VITALS: BP 130/72; PULSE 56; RESP 18; TEMP 36.2; O2SAT 94
--- NOTE | 2022-12-13 08:25 | W.ANESPOSTOP ---
Postoperative Evaluation Date, Time and Location Date Performed: 12/13/22 Time Performed: 08:00 Patient Location: Day Surgery Unit Vital Signs Most Recent Imported Vital Signs: Most Recent Vital Signs Temp Pulse Resp BP Pulse Ox 36.2 C L 56 L 18 130/72 94 12/13/22 07:57 12/13/22 07:57 12/13/22 07:57 12/13/22 07:57 12/13/22 07:57 Pain Score Most Recent Pain Score: Most Recent Pain Score Pain Level 0 12/13/22 07:57 Assessment Mental Status: Arousable with meaningful communication Airway and Respiratory Function: Patent airway with normal (patient baseline) respiratory exam Cardiovascular Function: Hemodynamically Stable Hydration Status: Adequately Hydrated Nausea & Vomiting: No Nausea or Vomiting Pain: Pt. Denies Any Pain Peripheral Nerve Block: Patient did not receive a nerve block
[2022-12-13 08:28] VITALS: BP 178/89; PULSE 64; RESP 18; TEMP 36.6; O2SAT 96
== END 2022-12-13 08:54 | disposition home or self-care (01) ==
PROVIDERS: PCP Nurse Practitioner Family; Visit Provider Student in an Organized Health Care Education/Training Program
PROC: 0DJD8ZZ Inspection of Lower Intestinal Tract, Via Natural or Artificial Opening Endoscopic (ICD-10-PCS; CPT 45330; principal; 2022-12-13 07:30)
DX: Z12.11 Encounter for screening for malignant neoplasm of colon (principal); Z86.010 Personal history of colon polyps; K62.1 Rectal polyp; K64.4 Residual hemorrhoidal skin tags; K64.1 Second degree hemorrhoids; K57.30 Diverticulosis of large intestine without perforation or abscess without bleeding
CPT/HCPCS: 45331; 88305

== ENCOUNTER 2022-12-27 06:08 | Day surgery (SDC) | payer MEDICARE, SELFPAY ==
[2022-12-27] VITALS (8 sets, daily range): BP systolic 126–164; BP diastolic 68–94; PULSE 56–66; RESP 14–18; TEMP 36.2–36.7; O2SAT 95–98; BMI 31.7
--- NOTE | 2022-12-27 06:58 | ANES.PREOP_ITS ---
General Info Date of Service Date Performed: 12/27/22 Height: 5 ft 10 in Weight: 100.3 kg Body Mass Index (BMI): 31.7 Surgical Procedure: Operation Date: 12/27/22 07:40 Proposed Procedure Side Surgeon p Transanal Polyp Excision Ish Phillips MD Meds Allergies and Home Medications Allergies Allergy/AdvReac Type Severity Reaction Status Date / Time Penicillins Allergy Mild HIVES A Verified 12/27/22 06:27 CHILD Home Medication Medication Instructions Recorded hydrochlorothiazide 25 mg tablet 25 mg PO DAILY #90 tab-caps 06/08/22 lisinopril 20 mg tablet 20 mg PO DAILY #90 tab-caps 06/08/22 bisacodyl 5 mg tablet,delayed 5 mg PO ONCE colonscopy bowel prep 12/15/22 release (Dulcolax (bisacodyl)) #4 tabs polyethylene glycol 3350 17 238 g PO ONCE colonoscopy prep 12/15/22 gram/dose oral powder #238 grams Current Visit Medications: Current Medications Generic Name Dose Route Start Last Admin Trade Name Marisa PRN Reason Stop Dose Admin Ringer's Solution 1,000 mls @ 80 mls/hr 12/27/22 06:00 IV 01/25/23 23:59 INFUSION GRISELDA IV Miscellaneous Supplies 1 each 12/27/22 06:00 Iv Access IV 01/25/23 23:59 DIRECTED GRISELDA Sodium Biphosphate/Sodium Phosphate 133 ml 12/27/22 06:00 12/27/22 06:39 Na Phosphate Enema 133 Ml Btl TN 12/27/22 16:00 1 applic PREOP GRISELDA Administration Sodium Biphosphate/Sodium Phosphate 133 ml 12/27/22 06:15 Na Phosphate Enema 133 Ml Btl TN 12/27/22 16:00 PREOP GRISELDA Sodium Chloride 0 ml 12/27/22 06:00 Normal Saline Flush 10 Ml Syr IV 01/25/23 23:59 PRN PRN Sodium Chloride 0 ml 12/27/22 06:00 Normal Saline 10 Ml Vial IJ 01/25/23 23:59 DIRECTED PRN Sterile Water 0 ml 12/27/22 06:00 Water,Injection,Sterile 10 Ml Vial IJ 01/25/23 23:59 DIRECTED PRN PFSH Active Problems Active Problems: Problem Status Onset Code Status post hip replacement Z96.649 Mitral murmur 02/15/17 I34.0 Hyperplasia of prostate N40.0 Hyperlipidemia 08/20/12 E78.5 History of tobacco use Z87.891 Gout M10.9 Generalized 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 M15.9 Edentulous 10/25/17 K00.0 Colonoscopy refused 10/25/17 Z53.20 Chronic obstructive lung disease J44.9 Cardiac murmur 10/25/17 R01.1 Cardiac murmur, unspecified R01.1 Bilateral hearing loss 10/25/17 H91.93 Hypertension I10 Diarrhea R19.7 Chronic abdominal pain R10.9, G89.29 Rectal mass K62.89 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 Gout M10.9 Aortic stenosis I35.0 Iron deficiency anemia due to chronic blood loss D50.0 Rectal bleeding K62.5 Hard of hearing H91.90 Medical History Medical History Cataract surgery bilat Hx of flexible sigmoidoscopy 12/13/22 Surgical History Surgical History History of colonoscopy Tobacco Smoking/Tobacco Use Status: Former Tobacco Use Passive smoking exposure: No Alcohol Alcohol Intake: never Substance Use Substance use: Never Substance use type: does not use Vital Signs and Lab Results Vital Signs Most Recent Vital Signs in EMR: Most Recent Vital Signs Temp Pulse Resp BP Pulse Ox 36.6 C 58 L 17 155/70 H 97 12/27/22 06:15 12/27/22 06:15 12/27/22 06:15 12/27/22 06:15 12/27/22 06:15 Lab Results Blood Type / Crossmatch: No Data to Display Complete Blood Count: No Data to Display Complete Metabolic Panel: No Data to Display Liver Function Panel: No Data to Display Coagulation Panel: No Data to Display Cardiac Panel: No Data to Display Arterial Blood Gas: No Data to Display Venous Blood Gas: No Data to Display Pancreas Panel: No Data to Display Thyroid Panel: No Data to Display Infectious Disease: No Data to Display Blood Cultures: No Data to Display Toxicology Panel: No Data to Display Imaging and Studies Imaging and Studies Study information below may be from another EMR and interpreted by another provider. Please see original notes in EMR for more complete details. Echocardiogram Summary: Conclusion Normal left ventricular wall thickness and chamber size. Estimated ejection fraction is 55%. Wall motion is normal Normal right ventricular size and systolic function The left atrium is moderately dilated. The right atrium is normal Aortic valve is trileaflet and mildly sclerotic. There is trace aortic regurgi tation. There is mild aortic stenosis. Peak gradient is 28, mean 13, calculated aortic valve area 1.43 cm?? Moderate mitral annular calcification with mild to moderate eccentric mitral regurgitation Normal tricuspid valve with moderate regurgitation. Estimated right ventricular systolic pressure is 25 mmHg Dilated aortic root (4.18) and ascending aorta (3.85 cm) Anesthesia Assessment and Plan Anesthesia History Personal History: No History of Anesthesia Complications Family History: No Family History of Anesthesia Complications Exercise Tolerance Exercise Tolerance: Metabolic Equivalents<4 Pertinent Negatives Pertinent Negatives: No Major Cardiovascular Symptoms or Complaints and No Major Pulmonary Symptoms or Complaints Cardiac & Pulmonary Exam Cardiac Exam: Normal S1/S2 Heart Sounds and Heart Murmur Present Pulmonary Exam: Clear Bilateral Breath Sounds Implantable Cardiac Device Does patient have a Pacemaker or an ICD?: No Airway Exam Known Difficult Airway: No Mallampati Class: 4 Mouth Opening: Narrow (< 3cm) Thyromental Distance: Greater than 3 cm Neck Range of Motion: Limited ROM Neck Circumference: Normal Teeth Condition: Edentulous ASA Classification ASA Score: ASA 3 Emergency Case?: No NPO Status NPO Status: NPO Clears >2 hours, Solids >8 hours Anesthesia Plan Resuscitation Status: Full Code Anesthesia Technique: Spinal Anesthesia Airway Planned: Natural Airway Monitors Used: Standard Monitors Preoperative Comments:: GETA back up
[2022-12-27] MEDS: Lactated Ringers 1,000 ML 80 ML IV (07:25)
--- NOTE | 2022-12-27 08:25 | BOWEL_PTH ---
PATIENT: Geronimo Teague Sr LOC: [facility] U#:[id number] AGE/SX: 87/M ROOM: RE12/27/[address]: Ish Phillips : 1935 BED: DIS: 12/27/2022 SPEC #: [id number] RECD: 12/27/22 12:36 STATUS: MARIOLA RE #: [id number] ALIREZA: 12/27/22 08:[address]: Ish Phillips DEPT: Surgical Specimen RECD BY: Latosha Quintero ENTERED: 12/27/22 12:37 SP TYPE: Bowel OTHR DR: Mehnaz Clifford, E/M ENGINEER Tissues: 1 - BIOPSY BOWEL 2 - BIOPSY BOWEL Procedures: GROSS AND MICRO LEVEL 4 Comments: [id number]
[2022-12-27] MEDS: Bupivacaine LIPOSOME/PF 133 MG/10 ML VIAL IJ (08:32)
--- NOTE | 2022-12-27 10:19 | ROE_ITS ---
Date of service: 12/27/22 Time of Service: 10:20 Operative Note Operative Note Refer to Anesthesia Record Procedure Description: Procedures performed: 1. Exam under anesthesia 2. Bilateral pudendal nerve block 3. Transanal rectal polyp excision x2 ?Preoperative diagnosis: Recurrent rectal polyp ?Postop diagnosis: 2 separate recurrent rectal polyps ?Surgeon: Hemant? Gordy Phillips [employer] Engineer: Mirian ?Anesthesia: General/spinal ?Anesthesia provider: Delilah ?Indication for procedure: 87-year-old man has a history of rectal polyp excised transanal. He has been having rectal bleeding and has recurrent polyp prolapsing. A flexible sigmoidoscopy demonstrated a large polyp within the rectum consistent with a recurrence. This was biopsied again and those biopsy results showed only tubular adenoma. 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 ?Findings: Contrary to preoperative thinking that only 1 polyp was present and large, there are actually 2 different polyps. The distal polyp stalk was involving the dentate line was removed without difficulty. The more proximal polyp was quite difficult to remove considering its depth. This was also on a stalk though much broader and base. It was removed, it is unclear how adequate the margins are. He will need to have close surveillance. ?Estimated blood loss: Scant ?Complications: None ?Drains: None ?Procedure details: ?The patient gave written consent and was in agreement with the risks, indications and benefits of the procedure.? The patient was taken to the operating room and laid supine with arms outstretched.? Anesthesia was administered which was tolerated very well.? He was then placed in lithotomy. Antibiotics were not indicated. I prepped and draped the perineum in standard fashion. We performed a timeout and started the procedure. A bilateral pudendal nerve block was placed with lidocaine. We then performed exam under anesthesia and a polyp with a clear stalk involving the dentate line was found posteriorly. This was excised with needle tip cautery. It was felt that this was adequately resected with clear clinical margins at the base. I did not feel like this polyp was as large as I was expecting it to be. I then performed a closer, deeper inspection and found a second polyp - much larger but on the same axis, about 7-8 cm proximal to the dentate line. Not sure if these polyps have recurred along with seeing the excision line 1 above and 1 below. This polyp was quite difficult to expose. It was excised at the stalk but my ability to adequately assess the margins clinically was quite limited due to venous oozing and depth and lighting to adequately assess and see. I left the patient's rectum packed for 5 minutes to achieve hemostasis. Removed the lap pads and the hemostasis was adequate but still, the depth and lighting made it very difficult to adequately assess if my margins were clear of residual polyp. It is certainly possible that some polyp remains at the edges. At this point he made a decision to stop the operation for today. The distal polyp which is the one that was bleeding at the edge of his anus has been taking care of adequately. I am confident I got the bulk of the proximal polyp out - but I am not confident that I got all of it, or if I did, I am worried that there could be some still at the margins. My overall plan is to keep a close and tight surveillance. Due to the depth am going to do a short?interval surveillance with flexible scope in 6 to 8 weeks to see if there is anything more that I need to remove. The patient was then woken up and taken to the PACU in hemodynamically stable condition. The instruments, sharps and sponge counts were all correct x3.
--- NOTE | 2022-12-27 11:44 | W.ANESPOSTOP ---
Postoperative Evaluation Date, Time and Location Date Performed: 12/27/22 Time Performed: 11:40 Patient Location: Day Surgery Unit Vital Signs Most Recent Imported Vital Signs: Most Recent Vital Signs Temp Pulse Resp BP Pulse Ox 36.3 C L 60 18 157/71 H 95 12/27/22 11:28 12/27/22 11:28 12/27/22 11:28 12/27/22 11:28 12/27/22 11:28 Pain Score Most Recent Pain Score: Most Recent Pain Score Pain Level 0 12/27/22 11:28 Assessment Mental Status: Awake (Alert & Oriented to Patient Baseline) Airway and Respiratory Function: Patent airway with normal (patient baseline) respiratory exam Cardiovascular Function: Hemodynamically Stable Hydration Status: Adequately Hydrated Nausea & Vomiting: No Nausea or Vomiting Pain: Pt. Denies Any Pain Peripheral Nerve Block: Patient did not receive a nerve block
== END 2022-12-27 12:38 | disposition home or self-care (01) ==
PROVIDERS: PCP Nurse Practitioner Family; Visit Provider Student in an Organized Health Care Education/Training Program
PROC: (CPT 45171; principal; 2022-12-27 07:30)
DX: K62.1 Rectal polyp (principal); K62.5 Hemorrhage of anus and rectum; I10 Essential (primary) hypertension; D50.9 Iron deficiency anemia, unspecified
CPT/HCPCS: 45171; 88305; J2250; J2405

== ENCOUNTER 2023-02-21 07:17 | Day surgery (SDC) | payer MEDICARE, SELFPAY ==
[2023-02-21] VITALS (8 sets, daily range): BP systolic 117–175; BP diastolic 52–83; PULSE 55–65; RESP 15–22; TEMP 36.2–36.6; O2SAT 94–98; BMI 29.8
--- NOTE | 2023-02-21 06:50 | W.ANESPRE ---
General Info Date of Service Date Performed: 02/21/23 Height: 5 ft 10 in Weight: 94.347 kg Body Mass Index (BMI): 29.8 Surgical Procedure: Operation Date: 02/21/23 09:10 Proposed Procedure Side Surgeon p Transanal Polyp Excision Ish Phillips MD Meds Allergies and Home Medications Allergies Allergy/AdvReac Type Severity Reaction Status Date / Time Penicillins Allergy Mild HIVES A Verified 02/21/23 07:48 CHILD Home Medication Medication Instructions Recorded hydrochlorothiazide 25 mg tablet 25 mg PO DAILY #90 tab-caps 06/08/22 lisinopril 20 mg tablet 20 mg PO DAILY #90 tab-caps 06/08/22 bisacodyl 5 mg tablet,delayed 5 mg PO ONCE colonscopy bowel prep 12/15/22 release (Dulcolax (bisacodyl)) #4 tabs polyethylene glycol 3350 17 238 g PO ONCE colonoscopy prep 12/15/22 gram/dose oral powder #238 grams indomethacin 25 mg capsule 25 mg PO TID PRN gout #60 tab-caps 01/12/23 acetaminophen 500 mg tablet 1,000 mg PO QID PRN 02/21/23 (Tylenol Extra Strength) Current Visit Medications: Current Medications Generic Name Dose Route Start Last Admin Trade Name Freq PRN Reason Stop Dose Admin Ringer's Solution 1,000 mls @ 80 mls/hr 02/21/23 06:00 IV 03/22/23 23:59 INFUSION GRISELDA IV Miscellaneous Supplies 1 each 02/21/23 06:00 Iv Access IV 03/22/23 23:59 DIRECTED GRISELDA Sodium Biphosphate/Sodium Phosphate 133 ml 02/21/23 06:00 Na Phosphate Enema 133 Ml Btl NC 02/21/23 18:00 TODAY GRISELDA Sodium Biphosphate/Sodium Phosphate 133 ml 02/21/23 06:00 Na Phosphate Enema 133 Ml Btl NC 02/21/23 18:00 TODAY GRISELDA Sodium Chloride 0 ml 02/21/23 06:00 Normal Saline Flush 10 Ml Syr IV 03/22/23 23:59 PRN PRN Sodium Chloride 0 ml 02/21/23 06:00 Normal Saline 10 Ml Vial IJ 03/22/23 23:59 DIRECTED PRN Sterile Water 0 ml 02/21/23 06:00 Water,Injection,Sterile 10 Ml Vial IJ 07/05/23 23:59 DIRECTED PRN PFSH Active Problems Active Problems: Problem Status Onset Code 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 Z96.649 Mitral murmur 02/15/17 I34.0 Hyperplasia of prostate N40.0 Hyperlipidemia 08/20/12 E78.5 History of tobacco use Z87.891 Gout M10.9 Generalized 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 M15.9 Edentulous 10/25/17 K00.0 Colonoscopy refused 10/25/17 Z53.20 Chronic obstructive lung disease J44.9 Cardiac murmur 10/25/17 R01.1 Cardiac murmur, unspecified R01.1 Bilateral hearing loss 10/25/17 H91.93 Hypertension I10 Diarrhea R19.7 Chronic abdominal pain R10.9, G89.29 Rectal mass K62.89 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 Gout M10.9 Aortic stenosis I35.0 Iron deficiency anemia due to chronic blood loss D50.0 Rectal bleeding K62.5 Hard of hearing H91.90 Medical History Medical History (Updated 01/17/23 @ 13:57 by Megan Quinonez RN) Cataract surgery bilat Hx of flexible sigmoidoscopy 12/13/22 Surgical History Surgical History (Updated 02/21/23 @ 07:52 by Jo Ann Mackenzie) History of colonoscopy (~12/27/22) [place] History of surgery on arm R arm as a boy Tobacco Smoking/Tobacco Use Status: Former Tobacco Use Passive smoking exposure: No Alcohol Alcohol Intake: never Substance Use Substance use: Never Substance use type: does not use Vital Signs and Lab Results Vital Signs Most Recent Vital Signs in EMR: Temp Pulse Resp BP Pulse Ox 36.6 C 62 16 156/73 H 98 02/21/23 07:55 02/21/23 07:55 02/21/23 07:55 02/21/23 07:55 02/21/23 07:55 Lab Results Blood Type / Crossmatch: No Data to Display Complete Blood Count: No Data to Display Complete Metabolic Panel: No Data to Display Liver Function Panel: No Data to Display Coagulation Panel: No Data to Display Cardiac Panel: No Data to Display Arterial Blood Gas: No Data to Display Venous Blood Gas: No Data to Display Pancreas Panel: No Data to Display Thyroid Panel: No Data to Display Infectious Disease: No Data to Display Blood Cultures: No Data to Display Toxicology Panel: No Data to Display Imaging and Studies Imaging and Studies Study information below may be from another EMR and interpreted by another provider. Please see original notes in EMR for more complete details. Echocardiogram Summary: 10/10: LVEF 55%, trace AR, mild , [place] 1.43. moderate MR. moderate TR. RVSP 25 mmhg. Anesthesia Assessment and Plan Anesthesia History Personal History: No History of Anesthesia Complications Family History: No Family History of Anesthesia Complications Exercise Tolerance Exercise Tolerance: Metabolic Equivalents<4 Cardiac & Pulmonary Exam Cardiac Exam: Normal S1/S2 Heart Sounds Pulmonary Exam: Clear Bilateral Breath Sounds Implantable Cardiac Device Does patient have a Pacemaker or an ICD?: No Airway Exam Known Difficult Airway: No Mallampati Class: 4 Mouth Opening: Narrow (< 3cm) Thyromental Distance: Greater than 3 cm Neck Range of Motion: Limited ROM Neck Circumference: Normal Teeth Condition: Edentulous ASA Classification ASA Score: ASA 3 Emergency Case?: No NPO Status NPO Status: NPO Clears >2 hours, Solids >8 hours Anesthesia Plan Resuscitation Status: Full Code Anesthesia Technique: General Anesthesia Airway Planned: Endotracheal Tube Monitors Used: Standard Monitors Preoperative Comments:: 87 yo male for transanal polyp. Sig PMHx: former smoker, COPD, HTN (lisinopril, HCTZ), Previous Anes: - fallon rectal abscess, mac 3 grade 1. - trans anal polyp, spinal, prop sedation, 800 phenyl, 20 ephedrine. Discussed spinal vs GA, would like GA.
[2023-02-21] MEDS: Lactated Ringers 1,000 ML 80 ML IV (08:45)
--- NOTE | 2023-02-21 09:26 | W.SURGCON ---
Date of service: 02/21/23 Time of Service: 09:28 Assessment and Plan Assessment and plan (1) Rectal mass: Status: Acute Assessment and plan: 87-year-old man with a tubulovillous rectal polyp that had high-grade dysplasia in the colonoscopy resection however on his transanal polyp excision shortly thereafter, there was no dysplasia reported to be present in the villous polyp. He presents today for reexamination and possible reexcision. I told him I was quite worried that there would be some residual polyp that would need to be excised. Certainly the polyp regrew after the excision from 3 years before that. I think it is prudent to stay on top of it and try to get all of it with serial examination. I did, sadly, tell him that I do not think loose stools or inability to have a formed bowel movement has anything to do with this polyp. The procedure today is looking for residual polyp that I suspect is still there. I do not have clinical suspicion that the polyp is going to mechanically or physiologically affect his bowel habits beyond possibly seeing some blood. He seems surprised that the procedure is not going to help him have normal bowel movements. If his symptoms persist, he should probably have a diarrhea work-up. This clearly and obviously not the reason that we are doing the procedure today. I defer to his PCP and him to make a decision on further management with regards to his bowel habit changes as needed. History of Present Illness Narrative: The patient is an 87-year-old man who is well?known to me from prior procedures. 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 At the time of his prior scope/procedure, the polyp was actually prolapsing a significant amount of bleeding on a regular basis. Since last procedure he reports significant improvement in the bleeding which he says has completely resolved. He also is happy that nothing is sticking out of his bottom anymore. However, he says that he continues to have loose/liquid stools and this has been going on for months now. He says I cannot have a normal turd, it's always liquid. I have not had a normal one in months. PFSH All Active Problems Status post hip replacement (Acute) Mitral murmur (Acute 02/15/17) Hyperplasia of prostate (Acute) Hyperlipidemia (Acute 08/20/12) History of tobacco use (Acute) Gout (Acute) Generalized osteoarthrosis (Acute) Generalized osteoarthrosis (Acute) Edentulous (Acute 10/25/17) Colonoscopy refused (Acute 10/25/17) Chronic obstructive lung disease (Acute) Cardiac murmur (Acute 10/25/17) Cardiac murmur, unspecified (Acute) ? of mitral reguritation Bilateral hearing loss (Acute 10/25/17) Hypertension (Chronic) Diarrhea (Acute) Chronic abdominal pain (Acute) Rectal mass (Acute) adenomatous polyp. 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 Gout (Chronic) Aortic stenosis (Chronic) mild echo 2022 Iron deficiency anemia due to chronic blood loss (Acute) Rectal bleeding (Acute) Hard of hearing (Acute) Villous adenoma (Acute ~12/27/22) Medical History Cataract surgery bilat Hx of flexible sigmoidoscopy 12/13/22 Surgical History (Updated 02/21/23 @ 07:52 by Jo Ann Mackenzie) History of colonoscopy (~12/27/22) [place] History of surgery on arm R arm as a boy Social History Smoking/Tobacco Use Status: Former Tobacco Use Quit Date: 09/18/64 Tobacco: How many years used: 20 Smoking risk assessment performed?: Yes Alcohol Intake: never Drug use: Never Substance use type: does not use Do you feel safe at home: Yes Do you feel safe in your relationship?: Yes Exam Narrative Exam Narrative: General: Nontoxic, comfortable and interactive, elderly Neuro: Alert and oriented x3 Psych: Good mood and affect, his insight and understanding into his condition seems somewhat limited however. He is hopeful that some part of the procedure today will help his bowel movements return to normal. Results Last Vital Signs Temp 97.9 F 02/21/23 07:55 Pulse 62 02/21/23 07:55 Resp 16 02/21/23 07:55 BP 156/73 H 02/21/23 07:55 Pulse Ox 98 02/21/23 07:55
--- NOTE | 2023-02-21 09:36 | ROE_ITS ---
Date of service: 02/21/23 Time of Service: 11:00 Operative Note Operative Note Refer to Anesthesia Record Procedure Description: Procedures performed: 1.? Exam under anesthesia 2.? Bilateral pudendal nerve block 3.? Transanal rectal polyp excision x2 ?Preoperative diagnosis: Recurrent rectal polyps ?Postop diagnosis: Recurrent rectal polyps ?Surgeon: Hemant? Gordy Phillips ?Complementary Health Therapists: None ?Anesthesia: General/spinal ?Anesthesia provider: Calixto ?Indication for procedure: 87-year-old man has a history of rectal polyp excised transanal.? That polyp was found to be multifocal and was prolapsing at the time of excision. It was felt, after the procedure, that there was probably some degree of recurrent polyp at the margins. Preoperatively the patient says nothing is prolapsing anymore and he is not having any bleeding. ?Findings: Posterior midline, there is indeed recurrent polyp present. Whether this is from a positive margin or regrowing from the base of excision is unclear. There is a second, smaller growth of polyp that may be a separate primary or also a recurrence. This is off to the left?lateral aspect compared with midline. Both were excised in entirety. Some degree of stricturing from the scar tissue seems to be present although the lumen is not significantly narrowed from this healing process. ?Estimated blood loss: 50cc ?Complications: None ?Drains: None ?Procedure details: ?The patient gave written consent and was in agreement with the risks, indications and benefits of the procedure.? The patient was taken to the operating room and laid supine with arms outstretched.? Anesthesia was administered which was tolerated very well.? He was then placed in lithotomy.? Antibiotics were not indicated. I prepped and draped the perineum in standard fashion.? We performed a timeout and started the procedure.? A bilateral pudendal nerve block was placed with lidocaine and Exparel.? We then performed exam under anesthesia and recurrent polyp was found posteriorly.? There was a significant amount of scar tissue present with a couple of areas of palpable stricture. The strictures were not narrowing the lumen. They were not circumferential. I used the [place] for exposure. The base of this polyp was at least 5 or 6 cm, if not further, from the dentate line. The polyp was circumferentially outlined with the needle tip cautery. I then used a LigaSure to divide it below the mucosa completely excising with clear, visible margins. A second polyp was found further inside and slightly left of the midline and excised in the same fashion. There was no significant bleeding. There was no visible polyp tissue remaining that I could see. I took a separate piece of the proximal mucosa as a separate margin for histologic assessment. Hemostasis was excellent. I think he should get a flexible sigmoidoscope in 2-3 months to reassess the entire rectum. There may be some scattered, small?areas of polyp regrowth that need to be ablated but the bulk of the polyp should be gone at this time. The patient was then woken up and taken to the PACU in hemodynamically stable condition.? The instruments, sharps and sponge counts were all correct x3.
--- NOTE | 2023-02-21 10:22 | NUR.NOTE ---
0945: MD harris pt. reports he hasnt had much energy since last procedure. Nursing Note:
--- NOTE | 2023-02-21 10:41 | BOWEL_PTH ---
PATIENT: Geronimo Teague Sr LOC: [facility] U#:[id number] AGE/SX: 87/M ROOM: RE02/21/[address]: Ish Phillips : 1935 BED: DIS: 02/21/2023 SPEC #: [id number] RECD: 02/21/23 12:41 STATUS: MARIOLA RE #: [id number] ALIREZA: 02/21/23 10:[address]: Ish Phillips DEPT: Surgical Specimen RECD BY: Latosha Quintero ENTERED: 02/21/23 12:42 SP TYPE: Bowel OTHR DR: Mehnaz Clifford, TESTER REGULATOR Tissues: 1 - BIOPSY BOWEL 2 - BIOPSY BOWEL 3 - BIOPSY BOWEL Procedures: GROSS AND MICRO LEVEL 4 Comments:
[2023-02-21] MEDS: Bupivacaine LIPOSOME/PF 133 MG/10 ML VIAL IJ (10:50)
[2023-02-21] MEDS: Bupivacaine 0.25% Pres-Free 10 ML VIAL (10:50)
[2023-02-21] MEDS: Acetaminophen 500 MG TAB 1000 MG PO (12:00)
--- NOTE | 2023-02-21 12:02 | W.ANESPOSTOP ---
Postoperative Evaluation Date, Time and Location Date Performed: 02/21/23 Time Performed: 12:02 Patient Location: Day Surgery Unit Vital Signs Most Recent Imported Vital Signs: Most Recent Vital Signs Temp Pulse Resp BP Pulse Ox 36.5 C 57 L 15 145/66 H 96 02/21/23 11:22 02/21/23 11:22 02/21/23 11:22 02/21/23 11:22 02/21/23 11:22 Pain Score Most Recent Pain Score: Most Recent Pain Score Pain Level 0 02/21/23 11:22 Assessment Mental Status: Awake (Alert & Oriented to Patient Baseline) Airway and Respiratory Function: Patent airway with normal (patient baseline) respiratory exam Cardiovascular Function: Hemodynamically Stable Hydration Status: Adequately Hydrated Nausea & Vomiting: No Nausea or Vomiting Pain: Pain is tolerable per patient Peripheral Nerve Block: Patient did not receive a nerve block
== END 2023-02-21 13:00 | disposition home or self-care (01) ==
PROVIDERS: PCP Nurse Practitioner Family; Visit Provider Student in an Organized Health Care Education/Training Program
PROC: (CPT 45171; principal; 2023-02-21 09:00)
DX: D37.8 Neoplasm of uncertain behavior of other specified digestive organs (principal); K52.9 Noninfective gastroenteritis and colitis, unspecified; K62.4 Stenosis of anus and rectum; K63.89 Other specified diseases of intestine
CPT/HCPCS: 45171; 88305; J2371; J2405; J2704

== ENCOUNTER 2023-04-10 12:01 | Outpatient (REF) | payer MEDICARE, SELFPAY ==
[2023-04-10 21:18] LABS: Abs Immature Grans 0.05 10^3/uL (0.0-0.06); Absolute Basophil Count 0.05 10^3/uL (0.0-0.2); Absolute Eosinophil Count 0.53 10^3/uL (0.0-0.7); Absolute Lymphocyte Count 1.26 10^3/uL (1.2-3.4); Absolute Monocyte Count 1.05 10^3/uL (0.1-0.8); Basophils % 0.5; Eosinophils % 5.2; HCT 40.2 % (40.0-50.0); HGB 13.3 g/dL (13.5-17.5); Immature Grans % 0.5; Lymphocytes % 12.4; MCHC 33.1 % (32.0-36.0); MCV 88 fL (80-95); MPV 9.9 fL (8.0-11.0); Monocytes % 10.4; Platelet Count 353 10^3/uL (130-400); RBC 4.58 10^6/uL (4.36-5.78); RDW 13.2 % (11.8-14.1); WBC 10.14 10^3/uL (4.4-10.8)
[2023-04-10 21:30] LABS: ALT 36 U/L (16-63); AST 28 U/L (15-37); Albumin 3.5 g/dL (3.4-5.0); Alkaline Phosphatase 100 U/L (46-116); Anion Gap 12.9 mmol/L (3-11); BUN 22 mg/dL (7-18); Bilirubin, Total 0.7 mg/dL (0.2-1.0); CO2 24.1 mmol/L (21.0-32.0); CREATININE 1.3 mg/dL (0.70-1.30); Calcium 9.8 mg/dL (8.5-10.1); Chloride 103 mmol/L (98-107); Glucose 122 mg/dL (74-106); Potassium 4.2 mmol/L (3.5-5.1); Sodium 140 mmol/L (136-145); Total Protein 7.4 g/dL (6.4-8.2)
[2023-04-10 22:23] LABS: TSH 0.86 uIU/mL (0.36-3.74)
== END 2023-04-10 12:02 | disposition home or self-care (01) ==
LOC: LBN 12:01
PROVIDERS: PCP Nurse Practitioner Family; Visit Provider Nurse Practitioner Family
DX: R53.83 Other fatigue (principal); Z53.20 Procedure and treatment not carried out because of patient's decision for unspecified reasons
CPT/HCPCS: 80053; 84443; 85025

== ENCOUNTER 2023-04-25 02:37 | Outpatient (CLI) | payer MEDICARE, SELFPAY ==
--- NOTE | 2023-04-25 07:15 | DI.RAD_ITS ---
Exam(s) XR THORACIC SPINE COMPLETE EXAM: XR THORACIC SPINE COMPLETE CLINICAL HISTORY: neck and upper back pain,m54.9. TECHNIQUE: 2D digital imaging was performed. Three views. COMPARISON: No exams were available for comparison FINDINGS: BONES: There is no fracture or destructive lesion. The vertebral bodies and posterior elements are un remarkable. ALIGNMENT: Within normal limits. DISKS: Small endplate osteophytes are present throughout. There is mild anterior disc space narrowin g in the midthoracic region. SOFT TISSUE: Visualized lungs are clear. Heart size is normal. There is calcification at the aorti c . IMPRESSION: Mild degenerative changes. No evidence of compression fractures. DATA REPOSITORY: RADIATION DOSE DELIVERED:
--- NOTE | 2023-04-25 07:15 | DI.RAD_ITS ---
Exam(s) XR CERVICAL SPINE COMP 4-5V EXAM: XR CERVICAL SPINE COMP 4-5V CLINICAL HISTORY: neck and upper back pain,m54.2. TECHNIQUE: 2D digital imaging was performed. COMPARISON: No exams were available for comparison FINDINGS: BONES: No fracture or destructive lesion. Endplate osteophytes throughout. Facet degenerative mcmanus es throughout. DISKS: Severe degenerative disc changes throughout. Multilevel neural foraminal narrowing bilaterall y. ALIGNMENT: Cervical spinal alignment is within normal limits. The odontoid and atlantoaxial articulat ions are normal. SOFT TISSUE: Normal. The lung apices are clear. IMPRESSION: Severe degenerative changes. DATA REPOSITORY: RADIATION DOSE DELIVERED:
== END 2023-04-25 02:57 ==
PROVIDERS: PCP Nurse Practitioner Family; Visit Provider Nurse Practitioner Family
DX: M99.63 Osseous and subluxation stenosis of intervertebral foramina of lumbar region; M51.34 Other intervertebral disc degeneration, thoracic region
CPT/HCPCS: 72050; 72072

== ENCOUNTER 2023-05-06 14:45 | Emergency (ER) | payer MEDICARE, SELFPAY ==
[2023-05-06] VITALS (35 sets, daily range): BP systolic 90–122; BP diastolic 53–81; PULSE 60–127; RESP 17–41; TEMP 36.7–37.1; O2SAT 91–98
--- NOTE | 2023-05-06 15:00 | RT.EKG_ITS ---
APPROVED REPORT Exam: Resting ECG Reason for Exam: tachycardia Patient Location: E HR:118 bpm ECG Measurements Heart Rate 118 AXIS [place] [id number] P [id number] QRSd 135 QRS -42 QT 350 T 46 QTc 490 Conclusion Atrial flutter with predominant 2:1 AV block...A-rate 250, multiple Ps Multiple ventricular premature complexes...V complexes w/ short R-R intervls RBBB and LAFB...QRSd >120mS, axis(-40,240) Probable left ventricular hypertrophy...multiple LVH criteria ST elevation secondary to atrial flutter ST elevation, consider inferior injury...ST >0.08mV, II III aVF sinus tachycardia, left axis, RBBB
--- NOTE | 2023-05-06 15:00 | DI.CT_ITS ---
Exam(s) CT BRAIN NECK CTA EXAM: CT BRAIN NECK CTA CLINICAL HISTORY: headache and severe neck pain. TECHNIQUE: Imaging Protocol: Axial CT angiography was performed with multi-slice acquisition and mu lti-planar and/or 3D reconstructions. CONTRAST MATERIAL: Intravenous: Omnipaque 350 Contrast volume:structured data in ml COMPARISON: No exams were available for comparison FINDINGS: CTA Neck W: Aortic arch anatomy: The aortic arch anatomy is conventional and there is no significant stenosis at the origin of the great vessels off of the aortic arch. No intimal flap evident in the visualized ao rtic arch. Anterior circulation: Both common carotid arteries ascend with normal luminal diameters. There is calcified plaque at the level of both carotid bulbs and proximal internal carotid arteries. Mild stenosis on the left. Moderate stenosis on the right. The internal carotid arteries are paten t above this level in both sides the neck as well as in the skull base. Posterior circulation: Both vertebral arteries originate in conventional fashion off of the subclavian arteries and there is no obvious stenosis at the origin of the vertebral arteries. Both vertebral arteries exhibit normal luminal diameters within the foramen transversarium. No evide nce of intraluminal thrombus nor dissection. Both vertebral arteries contribute to the formation of the basilar artery at the skull base. CTA Brain W: Anterior circulation: Both internal carotid arteries are patent in the skull base-carotid canals as well as within the cave rnous sinuses. The supraclinoid aspects of the ICAs are patent. Both A1 segments are patent as are the anterior cer ebral arteries and there is no evidence of aneurysm at the level of the anterior communicating artery . Both middle cerebral arteries are patent with no evidence of significant stenosis nor intraluminal th rombus. There also no aneurysms of these vessels. Posterior circulation: The basilar artery ascends with normal luminal diameter. No significant stenosis.. Distally it gives off superior cerebellar arteries and above this level terminates as patent bilatera l posterior cerebral arteries. There is no evidence of aneurysm at the tip of the basilar artery nor elsewhere in the [id number] is. CT BRAIN: There is no evidence of intracranial hemorrhage, mass effect, or shift of midline structures. There are no extra-axial fluid collections. Ventricles are not enlarged or shifted. There are no ring enh ancing lesions in the brain and no abnormal meningeal enhancement. There is relatively symmetrical involutional change consistent with this patient's advanced age. The re is moderate amount of bilateral periventricular hypodensity consistent with chronic small vessel d isease. There is no evidence of obvious acute territorial infarct. IMPRESSION: 1. Patent carotid arteries in the neck. There is calcified plaque evident at the carotid bifurcation s bilaterally and proximal ICAs. Approximately 25 percent stenosis on the left side and more so on t he right side, approximately 40 percent stenosis. 2. Patent vertebral arteries in the neck. No dissection 3. Patent intracranial arteries. 4. No ring enhancing lesions in the brain. No abnormal meningeal enhancement. No intracranial hemor rhage. Involutional change consistent with this patient's advanced age. RADIATION DOSE DELIVERED: 1,927.24mGy.cm Total DLP DATA REPOSITORY: All CT scans at this facility are submitted to the National Radiology Data Registry (NRDR) Dose Index Registry (DIR) with the [employer] ([employer]). RADIATION OPTIMIZATION: All CT scans at this facility use at least one of these dose optimization te chniques: automated exposure control; mA and/or kV adjustment per patient size (includes targeted exa ms where dose is matched to clinical indication); or iterative reconstruction.
--- NOTE | 2023-05-06 15:12 | ED.GENADUL_ITS ---
Discharge Plan Disposition Patient Disposition: Home Condition: Improving Discharge Details Clinical Impression: Cervical osteoarthritis, Neck pain Primary Care Provider: Mehnaz Clifford ED Provider: Bharat Cat Home Meds and New Rx's Prescriptions: New lidocaine [Lidoderm] 5 % adhesive patch,medicated 1 patch topical DAILY PRNQty: 15 0RF Rx Instructions: leave on most painful area for up to 12 hrs No Action hydrochlorothiazide 25 mg tablet 25 mg PO DAILY Qty: 90 4RF lisinopril 20 mg tablet 20 mg PO DAILY Qty: 90 4RF indomethacin 25 mg capsule 25 mg PO TID PRN (Reason: gout) Qty: 60 0RF bisacodyl [Dulcolax (bisacodyl)] 5 mg tablet,delayed release (DR/EC) 5 mg PO ONCE Qty: 4 0RF Rx Instructions: take per colonoscopy instructions acetaminophen [Tylenol Extra Strength] 500 mg Tablet 1,000 mg PO QID PRN polyethylene glycol 3350 [Miralax] 17 gram/dose powder 238 g PO ONCE Rx Instructions: take per colonoscopy instructions Discharge Instructions Instructions: Neck Pain (ED) Additional Instructions: Please follow-up with your primary care physician. Please return to the emergency department for any worsening symptom Medical Decision Making 87-year-old male presents with 2 weeks of neck and headache worsening now to the point of being unable to move his neck, no injuries, no fevers, no recent sick contacts or illnesses, no chest pain nausea vomiting or other systemic signs of illness, noted to be tachycardic on arrival, holding neck in forward facing position, no midline spinal tenderness, cranial nerves II through XII intact 5 out of 5 strength upper and lower extremities, patient alert oriented interactive, per family patient woke the other day and was not able to move one of his lower extremities now has full range of motion and strength, consider neurovascular issue such as vertebral artery dissection or vertebral artery occlusion versus intracranial hemorrhage versus severe torticollis versus viral meningitis versus less likely bacterial meningitis given chronicity of symptomatology must also consider spinal epidural abscess or spinal epidural hematoma; will obtain labs, blood cultures, stat CTA head and neck, EKG, will initiate steroids for anti-inflammatory purposes, holding morphine or Toradol at this time as I do not want to depress patient's mental status and I do not want to affect coagulation cascade before knowing what patient's CT head looks like, if no intracranial hemorrhage noted on imaging will initiate more aggressive analgesia/anti-inflammatory medications, consider tachycardia related to pain versus infectious etiology. Disposition pending reassessment and results 17: 46 patient feeling much better after analgesia anti-inflammatory. No evidence of intracranial hemorrhage or arterial dissection. Heart rate greatly improved on the low 100s initial tachycardia likely related to discomfort. Likely some component of mild dehydration due to chronic poor p.o. intake. Patient family comfortable with patient returning home he lives at home with adult grandson. HPI General Date/Time Provider Initiated Documentation: 05/06/23 14:48 . HPI Narrative: 87-year-old male history of hypertension hyperlipidemia brought in by family for evaluation of headache and neck pain that has been going on for the past 2 weeks to the point now where patient is not moving his neck had an episode within the last week where patient woke up and could not move one of his legs, no recent illnesses no recent injuries. Per family his general health has been in decline over the past couple of weeks. Related Data Home Medications Medication Instructions Recorded Confirmed hydrochlorothiazide 25 mg tablet 25 mg PO DAILY #90 tab-caps 06/08/22 05/06/23 lisinopril 20 mg tablet 20 mg PO DAILY #90 tab-caps 06/08/22 05/06/23 bisacodyl 5 mg tablet,delayed 5 mg PO ONCE colonscopy bowel prep 12/15/22 05/06/23 release (Dulcolax (bisacodyl)) #4 tabs indomethacin 25 mg capsule 25 mg PO TID PRN gout #60 tab-caps 01/12/23 04/17/23 acetaminophen 500 mg tablet 1,000 mg PO QID PRN 02/21/23 05/06/23 (Tylenol Extra Strength) lidocaine 5 % topical patch 1 patch topical DAILY PRN #15 ea 05/06/23 (Lidoderm) polyethylene glycol 3350 17 238 g PO ONCE colonoscopy prep 05/06/23 05/06/23 gram/dose oral powder (Miralax) Previous Rx's Medication Instructions Recorded hydrochlorothiazide 25 mg tablet 25 mg PO DAILY #90 tab-caps 06/08/22 lisinopril 20 mg tablet 20 mg PO DAILY #90 tab-caps 06/08/22 bisacodyl 5 mg tablet,delayed 5 mg PO ONCE colonscopy bowel prep 12/15/22 release (Dulcolax (bisacodyl)) #4 tabs indomethacin 25 mg capsule 25 mg PO TID PRN gout #60 tab-caps 01/12/23 lidocaine 5 % topical patch 1 patch topical DAILY PRN #15 ea 05/06/23 (Lidoderm) Allergies Allergy/AdvReac Type Severity Reaction Status Date / Time Penicillins Allergy Mild HIVES A Verified 05/06/23 14:57 CHILD General Stated Complaint: Headache JOE: 3 Review of Systems Narrative: Review of Systems Constitutional: negative Eyes: negative ENT: negative Cardiovascular: negative Respiratory: negative Gastrointestinal: negative : negative Musculoskeletal: Neck pain Skin: negative Neurologic: Headache neck pain Psych: negative PFSH All Active Problems (Updated 05/06/23 @ 17:48 by Bharat Cat MD) Cervical osteoarthritis (Acute) Neck pain (Acute) Status post hip replacement (Acute) Mitral murmur (Acute 02/15/17) Hyperplasia of prostate (Acute) Hyperlipidemia (Acute 08/20/12) History of tobacco use (Acute) Gout (Acute) Generalized osteoarthrosis (Acute) Generalized osteoarthrosis (Acute) Edentulous (Acute 10/25/17) Colonoscopy refused (Acute 10/25/17) Chronic obstructive lung disease (Acute) Cardiac murmur (Acute 10/25/17) Cardiac murmur, unspecified (Acute) ? of mitral reguritation Bilateral hearing loss (Acute 10/25/17) Hypertension (Chronic) Diarrhea (Acute) Chronic abdominal pain (Acute) Rectal mass (Acute) adenomatous polyp. 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 Gout (Chronic) Aortic stenosis (Chronic) mild echo 2022 Iron deficiency anemia due to chronic blood loss (Acute) Rectal bleeding (Acute) Hard of hearing (Acute) Villous adenoma (Acute ~12/27/22) Medical History Cataract surgery bilat Hx of flexible sigmoidoscopy 12/13/22 Surgical History History of colonoscopy (~12/27/22) [facility] History of surgery on arm R arm as a boy Social History Smoking/Tobacco Use Status: Former Tobacco Use Quit Date: 09/18/64 Tobacco: How many years used: 20 Smoking risk assessment performed?: Yes Alcohol Intake: never Drug use: Never Substance use type: does not use Do you feel safe at home: Yes Do you feel safe in your relationship?: Yes Exam Narrative Exam Narrative: Physical Examination General: alert, awake, cooperative, resting comfortably, no acute distress HEENT: normocephalic, atraumatic; PERRL, EOM intact, conjunctiva normal; no nasal discharge; moist mucous membranes, oral and pharyngeal mucosa normal, tolerating secretions Neck: supple, trachea midline; holding neck in forward facing position not flexing extending or laterally moving due to discomfort, no midline spinal tenderness Chest: normal to inspection Respiratory: normal respiratory effort, speaking in full sentences, clear to auscultation, no wheezing, rales or rhonchi Cardiac: Tachycardia, regular rhythm, S1S2 intact, no murmurs rubs or gallops GI: abdomen soft, non-tender, non-distended; no palpable mass or hepatosplenomegaly Back: No midline spinal tenderness Skin: no lesions, rashes or trauma appreciated Neuro: Alert and oriented x3, cranial nerves II through XII intact, 5 out of 5 strength upper and lower extremities Psych: Appropriate mood and affect Course Vital Signs Vital signs: Vital Signs Temperature 36.7 C 05/06/23 14:49 Pulse 120 H 05/06/23 14:49 Respiratory Rate 20 05/06/23 14:49 Blood Pressure 106/65 05/06/23 14:49 Pulse Oximetry 98 05/06/23 14:49 Temperature 36.7 C 05/06/23 14:49 Temperature Source Oral 05/06/23 14:49 Pulse 120 H 05/06/23 14:49 Respiratory Rate 20 05/06/23 14:49 Respiratory Effort Normal, Non-Labored 05/06/23 14:54 Blood Pressure 106/65 05/06/23 14:49 Blood Pressure Position Sitting 05/06/23 14:49 Pulse Oximetry 98 05/06/23 14:49 Oxygen Delivery Method Room Air 05/06/23 14:49 Oxygen Flow Rate 0 05/06/23 14:49 Pain Level 7 05/06/23 14:49
[2023-05-06 15:29] LABS: BE (Venous) 1 mmol/L (-2-3); HCO3 (Venous) 26 mmol/L (23-28); O2 Sat (Venous) 39 %; TCO2 (Venous) 23 mmol/L (24-29); pCO2 (Venous) 39 mmHg (41-51); pH (Venous) 7.42 (7.31-7.41); pO2 (Venous) 25 mmHg
[2023-05-06] MEDS: Normal Saline Flush 10 ML SYR IVP (15:30)
[2023-05-06 15:34] LABS: Abs Immature Grans 0.05 10^3/uL (0.0-0.06); Absolute Eosinophil Count 0.01 10^3/uL (0.0-0.7); Absolute Lymphocyte Count 0.68 10^3/uL (1.2-3.4); Absolute Monocyte Count 0.68 10^3/uL (0.1-0.8); Basophils % 0.2; Eosinophils % 0.1; HGB 12.9 g/dL (13.5-17.5); Immature Grans % 0.4; Lymphocytes % 5.4; MCH 26.7 pg (27.0-33.0); MCHC 31.5 % (32.0-36.0); MCV 85 fL (80-95); MPV 8.7 fL (8.0-11.0); Monocytes % 5.4; Neutrophils % 88.5; Platelet Count 376 10^3/uL (130-400); RBC 4.83 10^6/uL (4.36-5.78); RDW 13.7 % (11.8-14.1); RDW-SD 42.9 fL; WBC 12.54 10^3/uL (4.4-10.8)
[2023-05-06 15:36] LABS: Absolute Basophil Count 0.03 10^3/uL (0.0-0.2)
[2023-05-06 15:45] LABS: PTT Activated 30.9 sec (21.5-31.9); Prothrombin Time 10.3 sec (9.3-11.0)
[2023-05-06] MEDS: Normal Saline - Diluent 50 ML VIAL IV (15:46)
[2023-05-06] MEDS: Omnipaque 350 MG/ML 50 ML BTL 85 ML IJ (15:54)
--- NOTE | 2023-05-06 15:56 | DI.RAD_ITS ---
Exam(s) XR PORTABLE CHEST AP EXAM: XR PORTABLE CHEST AP CLINICAL HISTORY: tachycardia, SOB. TECHNIQUE: 2D digital imaging was performed. COMPARISON: No exams were available for comparison FINDINGS: Single AP portable view. Heart size is upper normal. The mediastinum is not widened. Lungs are clear. No infiltrates nor obvious pleural effusions. IMPRESSION: No acute pulmonary findings on this single AP portable view of the chest. DATA REPOSITORY: RADIATION DOSE DELIVERED:
[2023-05-06 15:57] LABS: ALT 77 U/L (16-63); AST 39 U/L (15-37); Albumin 2.8 g/dL (3.4-5.0); Alkaline Phosphatase 141 U/L (46-116); Anion Gap 12.9 mmol/L (3-11); BUN 26 mg/dL (7-18); Bilirubin, Total 0.8 mg/dL (0.2-1.0); CO2 25.1 mmol/L (21.0-32.0); CREATININE 1.3 mg/dL (0.70-1.30); Calcium 9.6 mg/dL (8.5-10.1); Chloride 100 mmol/L (98-107); Creatine Kinase 28 U/L (39-308); Glucose 132 mg/dL (74-106); Magnesium 2.1 mg/dL (1.8-2.4); NT-proBNP 1133 pg/mL (<300); Potassium 3.8 mmol/L (3.5-5.1); Sodium 138 mmol/L (136-145); TSH (W/Ref FT4) 1.38 uIU/mL (0.36-3.74); Total Protein 8.1 g/dL (6.4-8.2); Troponin I < 50 ng/L (<or=60)
[2023-05-06] MEDS: Dexamethasone 10 MG/ML VIAL IVP (16:03)
[2023-05-06] MEDS: Lidocaine 2% Jelly 6 ML SYR (16:08)
[2023-05-06] MEDS: Normal Saline 1,000 ML 1000 ML IV (16:13)
--- NOTE | 2023-05-06 16:24 | DI.VRAD_ITS ---
PROCEDURE INFORMATION: Exam: CTA Head With Contrast, Arteriography Exam date and time: 05/06/2023 3:42 PM Age: 87 years old Clinical indication: Other: Headache and severe neck pain TECHNIQUE: Imaging protocol: Computed tomographic angiography of the head with contrast. Exam focused on the arteries. 3D rendering (Not supervised by radiologist): MIP and/or 3D reconstructed images were created by the technologist. Contrast material: OMNIPAQUE 350; Contrast volume: 85 ml; Contrast route: INTRAVENOUS (IV); COMPARISON: CR XR CERVICAL SPINE COMP 4-5V 04/25/2023 10:31 AM FINDINGS: ANTERIOR CIRCULATION: Right internal carotid artery: Intracranial segment is patent with no significant stenosis. No aneurysm. Calcified plaque in the carotid siphon. Right middle cerebral artery: No occlusion or significant stenosis. No aneurysm. Right anterior cerebral artery: No occlusion or significant stenosis. No aneurysm. Left internal carotid artery: Intracranial segment is patent with no significant stenosis. No aneurysm. Calcified plaque in the carotid siphon. Left middle cerebral artery: No occlusion or significant stenosis. No aneurysm. Left anterior cerebral artery: No occlusion or significant stenosis. No aneurysm. POSTERIOR CIRCULATION: Right vertebral artery: No occlusion or significant stenosis. No aneurysm. Left vertebral artery: No occlusion or significant stenosis. No aneurysm. Basilar artery: No occlusion or significant stenosis. No aneurysm. Right posterior cerebral artery: No occlusion or significant stenosis. No aneurysm. Left posterior cerebral artery: No occlusion or significant stenosis. No aneurysm. Brain: Harley-white matter differentiation is within normal limits. No mass effect or midline shift. There are mild nonspecific patchy foci of periventricular white matter hypodensity, probably due to chronic microvascular ischemic changes. Sulci and basilar cisterns are prominent due to [id number] parenchymal volume loss with prominence of sulci along the frontoparietal convexities, along the anterior interhemispheric falx and along the sylvian fissures in the anteromedial temporal lobes. There is focal gliosis suspected in the right anterior temporal lobe (4 series 18).No extra-axial fluid collection. Cerebral ventricles: No ventriculomegaly. Orbital cavities: Patient is status post cataract extraction bilaterally. Bones/joints: Unremarkable. No acute fracture. Soft tissues: Unremarkable. IMPRESSION: 1. No major vessel cut off or high-grade stenosis in the arteries of the [id number]. No intracranial aneurysm. 2. Age-related involutional changes with mild chronic small vessel ischemic changes and [id number] parenchymal volume loss. PROCEDURE INFORMATION: Exam: CTA Neck With Contrast Exam date and time: 05/06/2023 3:42 PM Age: 87 years old Clinical indication: Other: Headache and severe neck pain TECHNIQUE: Imaging protocol: Computed tomographic angiography of the neck with contrast. 3D rendering (Not supervised by radiologist): MIP and/or 3D reconstructed images were created by the technologist. Contrast material: OMNIPAQUE 350; Contrast volume: 85 ml; Contrast route: INTRAVENOUS (IV); COMPARISON: CR XR CERVICAL SPINE COMP 4-5V 04/25/2023 10:31 AM FINDINGS: Right common carotid artery: No stenosis. No dissection or occlusion. Right internal carotid artery: Calcified plaque in the carotid bifurcation and the proximal right internal carotid artery with 30 to 35% stenosis by NASCET criteria. Right external carotid artery: No occlusion or stenosis of the origin. Left common carotid artery: No stenosis. No dissection or occlusion. Left internal carotid artery: There is calcified plaque at the carotid bifurcation and proximal left internal carotid artery with 20-25% stenosis by NASCET criteria. Remaining left internal carotid artery in the neck is unremarkable. Left external carotid artery: No occlusion or stenosis of the origin. Right vertebral artery: No stenosis. No dissection or occlusion. Right vertebral artery is hypoplastic. Left vertebral artery: No stenosis. No dissection or occlusion. Brachiocephalic artery: Mild calcified plaque in the brachiocephalic trunk and right subclavian artery without significant stenosis. Aorta: Mild calcified and noncalcified plaque in the arch of aorta. Mild calcified and noncalcified plaque in the left subclavian artery without significant stenosis. Soft tissues: Normal. No significant soft tissue swelling. Bones/joints: No acute fracture. IMPRESSION: 1. There is no occlusion. 2. Mild stenosis in the bilateral internal carotid arteries, right greater than left by NASCET criteria. 3. Right vertebral artery is hypoplastic. No significant stenosis in the vertebral arteries in the neck. REFERENCES: NASCET CRITERIA. The degree of stenosis in the cervical segment of the internal carotid artery is based on NASCET criteria. Normal is no stenosis. Mild is less than 50% stenosis. Moderate is 50-69% stenosis. Severe is 70% to 99% stenosis. Total occlusion is no detectable patent lumen. Dictated and Authenticated by: Kwan Arnold MD. Ordering:ERICA Nicholson MD
--- NOTE | 2023-05-06 16:25 | DI.VRAD_ITS ---
PROCEDURE INFORMATION: Exam: XR Chest Exam date and time: 05/06/2023 3:52 PM Age: 87 years old Clinical indication: Other: Tachycardia, SOB TECHNIQUE: Imaging protocol: Radiologic exam of the chest. Views: 1 view. COMPARISON: CT BRAIN NECK CTA 05/06/2023 3:42 PM FINDINGS: Lungs: Unremarkable. No consolidation. Pleural spaces: Unremarkable. No pleural effusion. No pneumothorax. Heart/Mediastinum: Unremarkable. No cardiomegaly. Bones/joints: There is a chronic healed fracture in the proximal right humerus. IMPRESSION: No acute findings. Dictated and Authenticated by: Kwan Arnold MD. Ordering:ERICA Nicholson MD
[2023-05-06 16:33] LABS: Bilirubin Negative (Negative); Blood Small (Negative); Clarity Clear (Clear); Glucose Negative (Negative); Ketones Negative (Negative); Leukocyte Esterase Negative (Negative); Nitrite Negative (Negative); Urobilinogen 0.2 mg/dL (Up to 0.2); pH 5.5 (5-8)
[2023-05-06 16:40] LABS: Bacteria Negative HPF (Negative); C & S Indicated? No; Casts Negative LPF (Negative); Crystals Negative HPF (Negative); Epithelial Cells Rare HPF (Negative); Mucus Negative (Negative); WBC 0-2 HPF (0-5)
[2023-05-06] MEDS: Lidocaine 5% Patch 1 PATCH TP (16:49)
[2023-05-06] MEDS: Ketorolac 15 MG/ML VIAL IVP (16:50)
--- NOTE | 2023-05-06 18:32 | NUR.NOTE ---
Nursing Note: During Whitman catheter removal, while deflating the balloon w/ a 10 mL syringe, it appeared that the balloon collapsed on itself which resulted in resistance during removal. Once resistance was felt by RN, RN immediately stopped the removal and notified the ER MD. MD assessed catheter and discovered that the balloon, although deflated had a palpably rigid contour. MD re-advanced the catheter using lidocaine gel as lubrication with no resistance. The balloon re-inflated successfully with 10 mL of NS once re-advanced into the bladder. The balloon was deflated again with a 10 mL syringe and the Whitman catheter was removed without event.
--- NOTE | 2023-05-07 14:16 | W.ED.FU ---
Date of service: 05/07/23 Time of Service: 14:16 Follow Up Plan: Blood cultures came back positive for gram-positive cocci in clusters, I was able to contact patient patient's family family who endorsed that he is feeling much better today no fevers no systemic signs of illness; there is a high likelihood that this is contaminant from skin norma however patient family encouraged to return to emergency department for repeat blood cultures today
--- NOTE | 2023-05-09 15:01 | NUR.NOTE ---
Nursing Note: Accessed chart to get pt address to mail letter for blood culture results.
== END 2023-05-06 18:29 | disposition home or self-care (01) ==
PROVIDERS: Emergency Provider Emergency Medicine; PCP Nurse Practitioner Family
DX: R06.02 Shortness of breath (principal); M47.812 Spondylosis without myelopathy or radiculopathy, cervical region; I48.92 Unspecified atrial flutter; I10 Essential (primary) hypertension; E78.5 Hyperlipidemia, unspecified; Z87.891 Personal history of nicotine dependence
CPT/HCPCS: 36415; 70496; 70498; 80053; 82550; 82805; 87040; 87077; 93005; 96374; 96375; 99285; 71045; 81003; 81015; 83735; 83880; 84443; 84484; 85025; 85610; 85730; 93010; 99283; J1100; J1885; Q9967

== ENCOUNTER 2023-07-21 11:39 | Inpatient (IN) | payer MEDICARE, SELFPAY ==
[2023-07-21] VITALS (23 sets, daily range): BP systolic 92–115; BP diastolic 52–77; PULSE 66–97; RESP 14–22; TEMP 35.3–36.4; O2SAT 71–100
--- NOTE | 2023-07-21 11:45 | RT.EKG_ITS ---
APPROVED REPORT Exam: Resting ECG Reason for Exam: Weakness Patient Location: E HR:70 bpm ECG Measurements Heart Rate 70 AXIS NV [id number] P [id number] QRSd 145 QRS -27 QT 394 T 93 QTc 424 Conclusion Atrial flutter rate 70 RBBB
[2023-07-21] MEDS: Normal Saline 1,000 ML 1000 ML IV ×2 (12:00→12:42)
[2023-07-21 12:09] LABS: Abs Immature Grans 0.03 10^3/uL (0.0-0.06); Absolute Basophil Count 0.03 10^3/uL (0.0-0.2); Absolute Eosinophil Count 0.01 10^3/uL (0.0-0.7); Absolute Lymphocyte Count 0.85 10^3/uL (1.2-3.4); Absolute Monocyte Count 0.42 10^3/uL (0.1-0.8); Absolute Neutrophil Count 6.87 10^3/uL (1.2-6.7); Basophils % 0.4; Eosinophils % 0.1; HCT 37.8 % (40.0-50.0); HGB 11.6 g/dL (13.5-17.5); Immature Grans % 0.4; Lymphocytes % 10.4; MCH 25.2 pg (27.0-33.0); MCHC 30.7 % (32.0-36.0); MCV 82 fL (80-95); Monocytes % 5.1; Neutrophils % 83.6; Platelet Count 162 10^3/uL (130-400); RDW 17.7 % (11.8-14.1); RDW-SD 51.9 fL; WBC 8.21 10^3/uL (4.4-10.8)
[2023-07-21 12:25] LABS: ALT 24 U/L (16-63); AST 23 U/L (15-37); Albumin 2.2 g/dL (3.4-5.0); Alkaline Phosphatase 121 U/L (46-116); Anion Gap 9.4 mmol/L (3-11); BUN 44 mg/dL (7-18); Bilirubin, Total 0.8 mg/dL (0.2-1.0); CO2 28.6 mmol/L (21.0-32.0); Calcium 9.1 mg/dL (8.5-10.1); Chloride 103 mmol/L (98-107); Creatine Kinase 15 U/L (39-308); Estimated GFR 31.71 (mL/min/1.73m2); Glucose 97 mg/dL (74-106); Lipase 52 U/L (16-77); Magnesium 2.1 mg/dL (1.8-2.4); Sodium 141 mmol/L (136-145); Total Protein 6.3 g/dL (6.4-8.2)
[2023-07-21 12:26] LABS: Potassium 2.4 mmol/L (3.5-5.1)
--- NOTE | 2023-07-21 12:28 | W.ED.GENAD ---
Discharge Plan Disposition Patient Disposition: Admit to [facility] Condition: Fair Discharge Details Clinical Impression: Acute renal failure, Diarrhea, Hypokalemia, Acute dehydration, Acute hypotension Admit Date/Time: 07/21/23 14:16 Admit Provider: Nigel Hyde Attending Provider: Nigel Hyde Primary Care Provider: Mehnaz Clifford ED Provider: Eliud Cox Discharge Data Discharge Date/Time-TO BE ENTERED AT DEPARTURE: 07/21/23 14:12 Medical Decision Making Emergent evaluation of weakness and diarrhea. Initial differential includes viral illness, dehydration, electrolyte derangement. Patient has hypotension. We will continue fluid resuscitation. We will get lab work. No recent antibiotic use to suspect C. difficile, but will send stool studies if patient is able to provide a sample. 1230: Potassium 2.4, K rider ordered 1250: Discussed patient with the hospitalist who accepted him for admission and further management. Lab Data Lab results reviewed: Yes I reviewed the patient's lab results. ECG Data Attestation: I personally reviewed and interpreted this ECG (s) as follows: Prior ECG tracings: available for review Interpretation: A flutter rate 70, right bundle carito block HPI General Date/Time Provider Initiated Documentation: 07/21/23 11:44. Limitations to Documentation: other (Difficulty hearing). Information obtained by: patient. HPI Narrative: 88-year-old gentleman with past medical history of hypertension presents for evaluation of weakness and diarrhea. Diarrhea has been over the past week and is increasing. Multiple episodes daily. Has been having increased weakness and falls at home. Daughter called 911 today. EMS reports on their arrival his blood pressure was in the 90s. He was given a 500 cc bolus and transported to the emergency department Related Data Home Medications Medication Instructions Recorded Confirmed hydrochlorothiazide 25 mg tablet 25 mg PO DAILY #90 tab-caps 06/08/22 07/21/23 lisinopril 20 mg tablet 20 mg PO DAILY #90 tab-caps 06/08/22 07/21/23 acetaminophen 500 mg tablet 1,000 mg PO QID PRN 02/21/23 07/21/23 (Tylenol Extra Strength) mirtazapine 7.5 mg tablet 7.5 mg PO QHS #30 tabs 06/01/23 07/21/23 oxycodone 5 mg tablet 5 mg PO BID PRN pain #30 tabs 06/01/23 07/21/23 BP [place] 07/21/23 Lactobacills gasseri-Bifidobac cap PO 07/21/23 bifidum,longum 1.5 billion cell capsule (Probiotic Colon Support) Liver support supplement 07/21/23 [place] Q plus 07/21/23 blood flow 7 07/21/23 cardioteck supplement 07/21/23 circuflex 07/21/23 ferrous sulfate 325 mg (65 mg 325 mg PO DAILY 07/21/23 07/21/23 iron) tablet (Feosol) agee oil 07/21/23 Previous Rx's Medication Instructions Recorded hydrochlorothiazide 25 mg tablet 25 mg PO DAILY #90 tab-caps 06/08/22 lisinopril 20 mg tablet 20 mg PO DAILY #90 tab-caps 06/08/22 mirtazapine 7.5 mg tablet 7.5 mg PO QHS #30 tabs 06/01/23 oxycodone 5 mg tablet 5 mg PO BID PRN pain #30 tabs 06/01/23 Allergies Allergy/AdvReac Type Severity Reaction Status Date / Time Penicillins Allergy Mild HIVES A Verified 07/21/23 12:07 CHILD General Stated Complaint: Nausea/Vomit/Diar JOE: 3 PFSH All Active Problems Acute hypotension (Acute) Acute dehydration (Acute) Hypokalemia (Acute) Diarrhea (Acute) Acute renal failure (Acute) Status post hip replacement (Acute) Mitral murmur (Acute 02/15/17) Hyperplasia of prostate (Acute) Hyperlipidemia (Acute 08/20/12) History of tobacco use (Acute) Gout (Acute) Generalized osteoarthrosis (Acute) Generalized osteoarthrosis (Acute) Edentulous (Acute 10/25/17) Colonoscopy refused (Acute 10/25/17) Chronic obstructive lung disease (Acute) Cardiac murmur (Acute 10/25/17) Cardiac murmur, unspecified (Acute) ? of mitral reguritation Bilateral hearing loss (Acute 10/25/17) Hypertension (Chronic) Diarrhea (Acute) Chronic abdominal pain (Acute) Rectal mass (Acute) adenomatous polyp. 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 Gout (Chronic) Aortic stenosis (Chronic) mild echo 2022 Iron deficiency anemia due to chronic blood loss (Acute) Rectal bleeding (Acute) Hard of hearing (Acute) Villous adenoma (Acute ~12/27/22) Medical History Hx of flexible sigmoidoscopy 12/13/22 Cataract surgery bilat Surgical History History of surgery on arm R arm as a boy History of colonoscopy (~12/27/22) [place] Social History Smoking/Tobacco Use Status: Former Tobacco Use Quit Date: 09/18/64 Tobacco: How many years used: 20 Smoking risk assessment performed?: Yes Alcohol Intake: never Drug use: Never Substance use type: does not use Do you feel safe at home: Yes Do you feel safe in your relationship?: Yes Exam Narrative Exam Narrative: Review of Systems: All systems reviewed & are unremarkable except as noted in HPI and below: CONSTITUTIONAL: Alert and oriented Ill-appearing Hard of hearing HEENT: NACT EYES: PERRL, no conjunctival injection EARS: no external abnormality NOSE nares patent MOUTH dry MM NECK: Symmetric, trachea midline, No thyromegaly CVS: RRR, No murmurs or gallops. Hypotensive RESP: Unlabored respiratory effort, Clear to auscultation bilaterally No wheezes rales or rhonchi GI: Soft, Nontender, Nondistended, No organomegaly MSK: Extremities with full range of motion, no deformity or TTP SKIN: Warm, Dry. No rashes or lesions. NEURO: No focal neurologic deficits. Course Vital Signs Vital signs: Vital Signs Temperature 36.4 C L 07/21/23 11:43 Pulse 93 H 07/21/23 11:43 Respiratory Rate 22 07/21/23 11:43 Blood Pressure 102/56 L 07/21/23 11:43 Pulse Oximetry 98 07/21/23 11:43 Temperature 36.4 C L 07/21/23 11:43 Temperature Source Skin 07/21/23 11:43 Pulse 69 07/21/23 12:16 Pulse 83 07/21/23 12:20 Respiratory Rate 17 07/21/23 12:20 Respiratory Effort Non-Labored 07/21/23 11:59 Blood Pressure 92/54 L 07/21/23 12:16 Blood Pressure Mean 63 07/21/23 12:16 Blood Pressure Position Supine 07/21/23 11:43 Pulse Oximetry 98 07/21/23 11:43 Oxygen Delivery Method Nasal Cannula 07/21/23 11:43 Oxygen Flow Rate 2 07/21/23 11:43 Lab/Test Results Lab/Test Results: Laboratory Tests Range/Units 07/21/23 11:55 WBC (4.4-10.8) 10^3/uL 8.21 RBC (4.36-5.78) 10^6/uL 4.60 Hgb (13.5-17.5) g/dL 11.6 L Hct (40.0-50.0) % 37.8 L MCV (80-95) fL 82 MCH (27.0-33.0) pg 25.2 L MCHC (32.0-36.0) % 30.7 L RDW (11.8-14.1) % 17.7 H Plt Count (130-400) 10^3/uL 162 MPV (8.0-11.0) fL 10.0 Immature Gran % 0.4 Neutrophils % 83.6 Lymphocytes % 10.4 Monocytes % 5.1 Eosinophils % 0.1 Basophils % 0.4 Nucleated RBC % (0.0-0.3) % 0.0 Absolute Neutrophils (1.2-6.7) 10^3/uL 6.87 H Absolute Lymphocytes (1.2-3.4) 10^3/uL 0.85 L Absolute Monocytes (0.1-0.8) 10^3/uL 0.42 Absolute Eosinophils (0.0-0.7) 10^3/uL 0.01 Absolute Basophils (0.0-0.2) 10^3/uL 0.03 Sodium (136-145) mmol/L 141 Potassium (3.5-5.1) mmol/L 2.4 L* Chloride (98-107) mmol/L 103 Carbon Dioxide (21.0-32.0) mmol/L 28.6 Anion Gap (3-11) mmol/L 9.4 BUN (7-18) mg/dL 44 H Creatinine (0.70-1.30) mg/dL 2.0 H Est GFR (CKD-EPI 2020) (mL/min/1.73m2) 31.71 Glucose (74-106) mg/dL 97 Calcium (8.5-10.1) mg/dL 9.1 Magnesium (1.8-2.4) mg/dL 2.1 Total Bilirubin (0.2-1.0) mg/dL 0.8 AST (15-37) U/L 23 ALT (16-63) U/L 24 Alkaline Phosphatase (46-116) U/L 121 H Creatine Kinase (39-308) U/L 15 L Total Protein (6.4-8.2) g/dL 6.3 L Albumin (3.4-5.0) g/dL 2.2 L Lipase (16-77) U/L 52 Critical Care Time Critical Care Time Critical Care Time: Yes Total Critical Care Time: 34 Attestation: CRITICAL CARE Upon my evaluation, this patient had a high probability of imminent or life-threatening deterioration due to dehydration, renal failure, electrolyte derangement which required my direct attention, intervention, and personal management. I have personally provided 34 minutes of critical care time exclusive of time spent on separately billable procedures. Time includes review of laboratory data, radiology results, discussion with consultants, and monitoring for potential decompensation. Interventions were performed as documented above
[2023-07-21] MEDS: POTASSIUM CHLORIDE 10 MEQ/100 ML BAG 100 MEQ IVPB (12:32)
[2023-07-21 12:58] LABS: Source Nasal/Nares
--- NOTE | 2023-07-21 12:58 | W.PM.HP.N ---
Date of service: 07/21/23 Time of Service: 13:54 Assessment and Plan Assessment and plan (1) Severe sepsis: Status: Acute Assessment and plan: -Patient meets severe sepsis criteria with HR >90, RR in high 30's, hypotension with systolic of low 80's that improved to 115/77 s/p fluids, encephalopathy, and source of infection being COVID -RR and blood pressure now improved -lactic acid not done in ED -f/u LA -hypotension due to chronic poor PO intake with superimposed worsening of chronic diarrhea likely due to COVID-19 -continue IVF with 100ml/hr NS -monitor I/O's -started on Remdesivir on admission, will continue -f/u d. diff and other stool studies (2) COVID-19: Status: Acute Assessment and plan: -likely cause of acute worsening of diarrhea as well as acute hypoxic respiratory failure -treat as noted above -consider initiating dexemethasone if hypoxia worsens (3) Acute hypotension: Status: Acute Assessment and plan: -due to poor PO intake and superimposed COVID-19 as noted above (4) Diarrhea: Status: Acute Assessment and plan: -presumed due to COVID-19 -stool studies pending, f/u results Qualifiers: Diarrhea type: presumed infectious Qualified Code(s): R19.7 - Diarrhea, unspecified (5) ALDA (acute kidney injury): Status: Acute Assessment and plan: -due to poor PO intake with acute on chronic diarrhea -baseline Cr 1.3, found to be 2.0 in ED -f/p IVFs as noted above -f/u AM BUN/Cr (6) Hypokalemia: Status: Acute (7) Hypokalemia: Status: Acute Assessment and plan: -likely due to poor PO intake in combination with diarrhea -K 2.4 in ED -s/p IV replacement -f/u AM K and replace at needed (8) Decubitus ulcer, stage III: Status: Acute Assessment and plan: -present on admission as by nursing staff (please see nursing notes for details) Qualifiers: Laterality: unspecified laterality Pressure injury location: buttock Qualified Code(s): L89.303 - Pressure ulcer of unspecified buttock, stage 3 (9) Failure to thrive in adult: Status: Acute Assessment and plan: -Patients daughter reports he has had worsening PO intake over the last few months and they he does not wish to have any further significant workup -discussion with patients daughter; would like to discuss MACHINE IRONER if patient does not improve or condition significantly declines History of Present Illness History of Present Illness Chief Complaint: 1 week of diarrhea Narrative: 88-year-old male with past medical history of hypertension, osteoarthritis, gout who presents emergency department with 1 week of diarrhea, weakness and falling at home. Patient's daughter called EMS as the patient was reluctant to present to the emergency department. He apparently has had multiple bowel movements a day over the last week that is resulted in progressive weakness. EMS was called and upon arrival he had a systolic blood pressure in the 90s and was given 500 cc bolus. He denies any headache, lightheadedness, dizziness, nausea, vomiting, cough, chest pain. In the emergency department the patient was noted to be afebrile, with a heart rate of 93, blood pressure of 102/56 and oxygen saturation of 90% on 2 L nasal cannula with a respiratory rate in the high teens. Upon physical exam patient appeared fatigued, had a benign abdomen with an otherwise normal physical exam. CBC showed white blood cell count of 8.2, with a hemoglobin of 11.6 which is mildly decreased from baseline of 12.9, CMP was significant for sodium 141, potassium of 2.4, BUN of 44, creatinine of 2.0 (baseline 1.3). While in the emergency department, C. difficile, fecal bacterial pathogens, Giardia and crypto antigens and ova parasite were sent, however patient was ultimately found to be COVID-19 positive without respiratory symptoms. He was also given a total of 2 L of normal saline while in the emergency department as well as 10 mEq of IV potassium. Which emergency room physician paged hospitalist for admission for patient with severe diarrhea, dehydration, acute kidney injury, hypokalemia likely in the setting of acute COVID-19 infection. Review of Systems All systems reviewed & are unremarkable except as noted in HPI and below PFSH All Active Problems (Updated 07/21/23 @ 16:53 by Nigel Hyde MD) Decubitus ulcer, stage III (Acute) Failure to thrive in adult (Acute) Hypokalemia (Acute) ALDA (acute kidney injury) (Acute) COVID-19 (Acute) Severe sepsis (Acute) Acute hypotension (Acute) Acute dehydration (Acute) Hypokalemia (Acute) Diarrhea (Acute) Acute renal failure (Acute) Status post hip replacement (Acute) Mitral murmur (Acute 02/15/17) Hyperplasia of prostate (Acute) Hyperlipidemia (Acute 08/20/12) History of tobacco use (Acute) Gout (Acute) Generalized osteoarthrosis (Acute) Generalized osteoarthrosis (Acute) Edentulous (Acute 10/25/17) Colonoscopy refused (Acute 10/25/17) Chronic obstructive lung disease (Acute) Cardiac murmur (Acute 10/25/17) Cardiac murmur, unspecified (Acute) ? of mitral reguritation Bilateral hearing loss (Acute 10/25/17) Hypertension (Chronic) Diarrhea (Acute) Chronic abdominal pain (Acute) Rectal mass (Acute) adenomatous polyp. 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 Gout (Chronic) Aortic stenosis (Chronic) mild echo 2022 Iron deficiency anemia due to chronic blood loss (Acute) Rectal bleeding (Acute) Hard of hearing (Acute) Villous adenoma (Acute ~12/27/22) Medical History Hx of flexible sigmoidoscopy 12/13/22 Cataract surgery bilat Surgical History History of surgery on arm R arm as a boy History of colonoscopy (~12/27/22) [place] Social History Smoking/Tobacco Use Status: Former Tobacco Use Quit Date: 09/18/64 Tobacco: How many years used: 20 Smoking risk assessment performed?: Yes Alcohol Intake: never Drug use: Never Substance use type: does not use Housing: condominium Do you feel safe at home: Yes Do you feel safe in your relationship?: Yes Meds Allergies and Home Medications Allergies Allergy/AdvReac Type Severity Reaction Status Date / Time Penicillins Allergy Mild HIVES A Verified 07/21/23 12:07 CHILD Home Medications Medication Instructions Recorded Confirmed Type hydrochlorothiazide 25 mg tablet 25 mg PO DAILY #90 tab-caps 06/08/22 07/21/23 Rx lisinopril 20 mg tablet 20 mg PO DAILY #90 tab-caps 06/08/22 07/21/23 Rx acetaminophen 500 mg tablet 1,000 mg PO QID PRN 02/21/23 07/21/23 History (Tylenol Extra Strength) mirtazapine 7.5 mg tablet 7.5 mg PO QHS #30 tabs 06/01/23 07/21/23 Rx oxycodone 5 mg tablet 5 mg PO BID PRN pain #30 tabs 06/01/23 07/21/23 Rx BP [place] 07/21/23 History Lactobacills gasseri-Bifidobac cap PO 07/21/23 History bifidum,longum 1.5 billion cell capsule (Probiotic Colon Support) Liver support supplement 07/21/23 History [place] Q plus 07/21/23 History blood flow 7 07/21/23 History cardioteck supplement 07/21/23 History circuflex 07/21/23 History ferrous sulfate 325 mg (65 mg 325 mg PO DAILY 07/21/23 07/21/23 History iron) tablet (Feosol) agee oil 07/21/23 History Exam Narrative Exam Narrative: Frail, cachectic appearing older gentleman laying in bed in no acute distress, awake, alert, oriented to person and place only, heart RRR, lungs CTAB, abdomen soft, non-tender, non-distended Results Labs 07/21/23 11:55 07/21/23 11:55 Labs: Laboratory Results - last 24 hr 07/21/23 11:55 WBC 8.21 RBC 4.60 Hgb 11.6 L Hct 37.8 L MCV 82 MCH 25.2 L MCHC 30.7 L RDW 17.7 H Plt Count 162 MPV 10.0 Immature Gran % 0.4 Neutrophils % 83.6 Lymphocytes % 10.4 Monocytes % 5.1 Eosinophils % 0.1 Basophils % 0.4 Nucleated RBC % 0.0 Absolute Neutrophils 6.87 H Absolute Lymphocytes 0.85 L Absolute Monocytes 0.42 Absolute Eosinophils 0.01 Absolute Basophils 0.03 Sodium 141 Potassium 2.4 L* Chloride 103 Carbon Dioxide 28.6 Anion Gap 9.4 BUN 44 H Creatinine 2.0 H Est GFR (CKD-EPI 2020) 31.71 Glucose 97 Calcium 9.1 Magnesium 2.1 Total Bilirubin 0.8 AST 23 ALT 24 Alkaline Phosphatase 121 H Creatine Kinase 15 L Total Protein 6.3 L Albumin 2.2 L Lipase 52 Last Vital Signs Temp 97.5 F L 11/03/23 11:43 Pulse 66 07/21/23 12:45 Resp 15 07/21/23 12:50 BP 104/56 L 07/21/23 12:45 Pulse Ox 96 07/21/23 12:56 Time Spent Time spent with Patient: >75 minutes Time was spent: preparing to see the patient(eg.review tests), obtaining and/or reviewing separately otained hiistory, ordering medications,tests, procedures, referring, communicating with other health child care aide, indepentently interpreting results, counseling the patient and care coordination
[2023-07-21 13:33] LABS: COVID-19 PCR POSITIVE (Negative)
[2023-07-21] MEDS: REMDESIVIR 200 MG in Normal Saline 250 ML 250 MG IVPB (14:47)
[2023-07-21] MEDS: Normal Saline 1,000 ML 100 ML IV (20:01)
[2023-07-21] MEDS: POTASSIUM CHLORIDE/0.9% NACL 1,000 ML 100 MEQ IV (21:50)
[2023-07-22 03:30] VITALS: BP 119/77; PULSE 93; RESP 16; O2SAT 98
[2023-07-22 06:44] LABS: HCT 33.8 % (40.0-50.0); HGB 10.4 g/dL (13.5-17.5); MCH 25.2 pg (27.0-33.0); MCHC 30.8 % (32.0-36.0); MCV 82 fL (80-95); MPV 9.7 fL (8.0-11.0); Platelet Count 137 10^3/uL (130-400); RBC 4.12 10^6/uL (4.36-5.78); RDW 17.7 % (11.8-14.1); RDW-SD 50.9 fL; WBC 8.86 10^3/uL (4.4-10.8)
[2023-07-22 07:08] LABS: Anion Gap 10.6 mmol/L (3-11); BUN 32 mg/dL (7-18); CO2 24.4 mmol/L (21.0-32.0); CREATININE 1.2 mg/dL (0.70-1.30); Calcium 8.3 mg/dL (8.5-10.1); Chloride 110 mmol/L (98-107); Estimated GFR 58.53 (mL/min/1.73m2); Glucose 85 mg/dL (74-106); Magnesium 1.9 mg/dL (1.8-2.4); Sodium 145 mmol/L (136-145)
[2023-07-22 07:21] LABS: Potassium 2.5 mmol/L (3.5-5.1)
[2023-07-22] MEDS: Potassium Chloride 20 MEQ TABCR 40 MEQ PO ×2 (08:33→20:43)
[2023-07-22] MEDS: Enoxaparin 30 MG/0.3 ML SYR SC (08:33)
--- NOTE | 2023-07-22 08:40 | NUR.NOTE ---
Nursing Note: Patient's potassium level 2.5; MD ordered IV potassium replacement, this nurse wlaked into room and found patients IV on the floor; this nurse asked patient why he pulled out his IV, pt stated I don't want it; this nurse asked if patient would accept getting a new IV for potassium replacement, pt stated I don't want anything IV, I will take stuff by mouth thats it; this nurse notifed charge and MD was notfied as well; plan is to contact pt's family and talk about HAND SLITTER
[2023-07-22 08:42] VITALS: BP 111/70; PULSE 89; RESP 19; TEMP 35.9; O2SAT 96
[2023-07-22 12:01] VITALS: BP 119/77; PULSE 94; RESP 15; TEMP 36.1; O2SAT 98
--- NOTE | 2023-07-22 14:24 | INITIAL_ITS ---
Date of service: 07/22/23 Time of Service: 14:24 Care Management Initial Assmt Initial Assessment REASON FOR HOSPITALIZATION:: Severe sepsis, COVID-19, Hypotension PREVIOUS FUNCTIONAL STATUS/SOCIAL/FAMILY SUPPORTS:: Resides in [place] with supportive family, Geronimo has multiple private caregivers that support him at home as well as his daughter, Stoney Harrington and son, Geronimo Unger. CURRENT FUNCTIONAL STATUS:: Very [place], confused, refusing care, on COVID precautions. ADVANCE DIRECTIVES:: None on file. Has patient been provided with info about the portal/API?: No Did the patient sign up for the portal?: No CODE STATUS:: DNR/DNI INSURANCE COVERAGE / FINANCIAL ISSUES:: [facility] PRIMARY CARE PHYSICIAN:: Mehnaz Clifford PATIENT/FAMILY EDUCATION NEEDS:: Review discharge instructions, discuss goals of care. ANTICIPATED BARRIERS TO DISCHARGE:: COVID positive. TRANSPORTATION:: Dependent on mobility and disposition. PLAN:: Per MD, family discussion regarding goals of care anticipated. Stoney met with Dr. Abbott, anticipate Geronimo may transition to comfort care and remain at [facility]. Anticipate Palliative consult 07/24/23. CM continues to follow. [facility] All Active Problems (Updated 07/22/23 @ 18:08 by Jaqui Abbott MD) Discharge planning issues (Acute) DVT prophylaxis (Acute) Decubitus ulcer, stage III (Acute) Failure to thrive in adult (Acute) Hypokalemia (Acute) ALDA (acute kidney injury) (Acute) COVID-19 (Acute) Severe sepsis (Acute) Acute dehydration (Acute) Hypokalemia (Acute) Diarrhea (Acute) Acute renal failure (Acute) Status post hip replacement (Acute) Mitral murmur (Acute 02/15/17) Hyperplasia of prostate (Acute) Hyperlipidemia (Acute 08/20/12) History of tobacco use (Acute) Gout (Acute) Generalized osteoarthrosis (Acute) Generalized osteoarthrosis (Acute) Edentulous (Acute 10/25/17) Colonoscopy refused (Acute 10/25/17) Chronic obstructive lung disease (Acute) Cardiac murmur (Acute 10/25/17) Cardiac murmur, unspecified (Acute) ? of mitral reguritation Bilateral hearing loss (Acute 10/25/17) Hypertension (Chronic) Diarrhea (Acute) Chronic abdominal pain (Acute) Rectal mass (Acute) adenomatous polyp. 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 Gout (Chronic) Aortic stenosis (Chronic) mild echo 2022 Iron deficiency anemia due to chronic blood loss (Acute) Rectal bleeding (Acute) Hard of hearing (Acute) Villous adenoma (Acute ~12/27/22) Medical History Hx of flexible sigmoidoscopy 12/13/22 Cataract surgery bilat Surgical History History of surgery on arm R arm as a boy History of colonoscopy (~12/27/22) [place] Social History Smoking/Tobacco Use Status: Former Tobacco Use Quit Date: 09/18/64 Tobacco: How many years used: 20 Smoking risk assessment performed?: Yes Alcohol Intake: never Drug use: Never Substance use type: does not use Housing: condominium Do you feel safe at home: Yes Do you feel safe in your relationship?: Yes
[2023-07-22 15:20] VITALS: BP 107/65; PULSE 75; RESP 16; TEMP 36.5; O2SAT 98
--- NOTE | 2023-07-22 17:57 | PGE_ITS ---
Date of Service Date of service: 07/22/23 Time of Service: 17:57 Assessment and Plan Assessment and plan (1) Severe sepsis: Status: Acute Assessment and plan: -Reattempt placement of an IV, IVF. -hypotension could be due to COVID, dehydration. -check blood cultures, procalcitonin -not on antibiotics, but off O2 and BP better. -would not start until a source has declared itself. (2) COVID-19: Status: Acute Assessment and plan: On RA. Continue remdesivir (3) Acute hypotension: Status: Resolved Assessment and plan: Resume IVF if patient permits placement of IV (4) Diarrhea: Status: Acute Assessment and plan: presumed due to COVID-19 Stool studies are pending -write for prn loperamide Qualifiers: Diarrhea type: presumed infectious Qualified Code(s): R19.7 - Diarrhea, unspecified (5) ALDA (acute kidney injury): Status: Acute Assessment and plan: Resume IVF as patient permits (6) Hypokalemia: Status: Acute Assessment and plan: Replete (7) Decubitus ulcer, stage III: Status: Acute Assessment and plan: -present on admission Wound care consulted Qualifiers: Pressure injury location: buttock Laterality: unspecified laterality Qualified Code(s): L89.303 - Pressure ulcer of unspecified buttock, stage 3 (8) Failure to thrive in adult: Status: Acute Assessment and plan: Palliative care consulted to discuss goals of care (9) DVT prophylaxis: Status: Acute Assessment and plan: SC enoxaparin (10) Discharge planning issues: Status: Acute Assessment and plan: DNR/DNI C/s palliative care Subjective Subjective Interval history since last seen: Mr Teague ripped out his IVs and had refused having them placed earlier today. He is more agreeable to this now. Denies pain, shortness of breath. Otherwise, he has a hard time understanding/hearing me. Requests some water. Exam Narrative Exam Narrative: General: Elderly male who is A&Ox3, NAD HEENT: EOMI, MMM Heart: RRR Lungs: CTAB Abdomen: soft, nontender, nondistended Extremities: no edema BLEs Objective Last Vital Signs Temp 36.5 C 07/22/23 15:20 Pulse 75 07/22/23 15:20 Resp 16 07/22/23 15:20 BP 107/65 07/22/23 15:20 Pulse Ox 98 07/22/23 15:20 Laboratory Results - last 24 hr 07/22/23 06:15 WBC 8.86 RBC 4.12 L Hgb 10.4 L Hct 33.8 L MCV 82 MCH 25.2 L MCHC 30.8 L RDW 17.7 H Plt Count 137 MPV 9.7 Sodium 145 Potassium 2.5 L* Chloride 110 H Carbon Dioxide 24.4 Anion Gap 10.6 BUN 32 H Creatinine 1.2 Est GFR (CKD-EPI 2020) 58.53 Glucose 85 Calcium 8.3 L Magnesium 1.9 Time Spent with Patient Time Spent with Patient: 25-34 minutes Time was spent: preparing to see the patient(eg.review tests), obtaining and/or reviewing separately otained hiistory, ordering medications,tests, procedures, referring, communicating with other health pharmacy customer care specialist, indepentently interpreting results, counseling the patient and care coordination
[2023-07-22 19:50] LABS: Procalcitonin 0.2 ng/mL
[2023-07-22 19:59] VITALS: BP 117/77; PULSE 110; RESP 18; TEMP 36.4; O2SAT 98
--- NOTE | 2023-07-22 20:17 | NUR.NOTE ---
Nursing Note: Was informed by day shift that pt had removed his IV access this morning. Pt spoke with Dr. Abbott about the need for IVF & K supplementation. Was informed by day shift pt seemed on the fence still about needing fluids and still did not have IV access. This automotive service writer spoke again with pt about the need for IVF and he stated I don't want nothing. Pt was able to answer orientation questions appropriately. CC made aware that pt declined IVF at this time. Will continue to monitor.
[2023-07-22 23:27] VITALS: BP 114/75; PULSE 116; RESP 18; TEMP 36.9; O2SAT 96
[2023-07-23 06:20] VITALS: BP 122/72; PULSE 100; RESP 18; TEMP 36.8; O2SAT 97
[2023-07-23 06:31] LABS: Abs Immature Grans 0.05 10^3/uL (0.0-0.06); Absolute Basophil Count 0.01 10^3/uL (0.0-0.2); Absolute Lymphocyte Count 1.09 10^3/uL (1.2-3.4); Absolute Monocyte Count 0.48 10^3/uL (0.1-0.8); Absolute Neutrophil Count 7.56 10^3/uL (1.2-6.7); Basophils % 0.1; HCT 33.1 % (40.0-50.0); Immature Grans % 0.5; Lymphocytes % 11.9; MCH 24.9 pg (27.0-33.0); MCHC 30.2 % (32.0-36.0); MCV 83 fL (80-95); MPV 9.7 fL (8.0-11.0); Monocytes % 5.2; Neutrophils % 82.3; Platelet Count 141 10^3/uL (130-400); RBC 4.01 10^6/uL (4.36-5.78); RDW 17.8 % (11.8-14.1); RDW-SD 52.7 fL; WBC 9.19 10^3/uL (4.4-10.8)
[2023-07-23 06:42] LABS: INR 1.1 (0.9-1.1); Prothrombin Time 10.8 sec (9.1-11.1)
[2023-07-23 07:03] LABS: D-Dimer 2530 ng/mlFEU (<500)
[2023-07-23 07:12] LABS: ALT 21 U/L (16-63); AST 21 U/L (15-37); Albumin 1.9 g/dL (3.4-5.0); Alkaline Phosphatase 111 U/L (46-116); Anion Gap 8.4 mmol/L (3-11); BUN 25 mg/dL (7-18); Bilirubin, Total 0.7 mg/dL (0.2-1.0); CO2 24.6 mmol/L (21.0-32.0); Calcium 8.4 mg/dL (8.5-10.1); Chloride 107 mmol/L (98-107); Estimated GFR 72.84 (mL/min/1.73m2); Ferritin 535 ng/mL (26-388); Glucose 94 mg/dL (74-106); Magnesium 1.8 mg/dL (1.8-2.4); Potassium 3.1 mmol/L (3.5-5.1); Sodium 140 mmol/L (136-145); Total Protein 5.5 g/dL (6.4-8.2)
[2023-07-23 07:13] LABS: Vitamin D 25 Total 28.5 ng/mL (30-100)
[2023-07-23 07:22] LABS: Bilirubin, Direct 0.2 mg/dL (0.0-0.2); C-Reactive Protein 5.24 mg/dL (0.0-0.3)
--- NOTE | 2023-07-23 08:26 | NUR.NOTE ---
Nursing Note: Patient is refusing all meds at this time; pt agreed to take potassium pills upon entering room; this nurse scanned them and broke them in half for patient to take and then patient stated im not taking anything, I don't want any pills this nurse wasted the pills and charted as refused. Patient also refused IV and IV fluids over night for rn night nurse; is aware.
[2023-07-23 10:58] VITALS: BP 117/72; PULSE 94; RESP 20; TEMP 36.1; O2SAT 97
[2023-07-23] MEDS: cefTRIAXone 2 GM/50 ML BAG IVPB (14:47)
[2023-07-23] MEDS: POTASSIUM CHLORIDE/0.9% NACL 1,000 ML 100 MEQ IV (14:56)
[2023-07-23 15:00] VITALS: BP 104/62; PULSE 96; RESP 17; TEMP 36.1; O2SAT 98
--- NOTE | 2023-07-23 15:32 | PGE_ITS ---
Date of Service Date of service: 07/23/23 Time of Service: 15:32 Assessment and Plan Assessment and plan (1) Severe sepsis: Status: Acute Assessment and plan: -Blood cx positive for GPC in chains. Reattempt placement of an IV again. start empiric vancomycin/ceftriaxone. Obtain an echocardiogram. Repeat blood cultures. Discussed with daughter Alexsandra and son, Geronimo, that, if the patient again refuses care, comfort care should be considered. -hypotension could be due to COVID, dehydration. (2) COVID-19: Status: Acute Assessment and plan: On RA. Continue remdesivir, if the patient permits this. (3) Acute hypotension: Status: Resolved Assessment and plan: Resume IVF if patient permits placement of IV (4) Diarrhea: Status: Acute Assessment and plan: presumed due to COVID-19 Stool studies are pending -write for prn loperamide Qualifiers: Diarrhea type: presumed infectious Qualified Code(s): R19.7 - Diarrhea, unspecified (5) ALDA (acute kidney injury): Status: Acute Assessment and plan: Resume IVF as patient permits (6) Hypokalemia: Status: Acute Assessment and plan: Replete (7) Decubitus ulcer, stage III: Status: Acute Assessment and plan: -present on admission Wound care consulted Qualifiers: Pressure injury location: buttock Laterality: unspecified laterality Qualified Code(s): L89.303 - Pressure ulcer of unspecified buttock, stage 3 (8) Failure to thrive in adult: Status: Acute Assessment and plan: Palliative care consulted to discuss goals of care (9) DVT prophylaxis: Status: Acute Assessment and plan: SC enoxaparin (10) Discharge planning issues: Status: Acute Assessment and plan: DNR/DNI C/s palliative care Subjective Subjective Interval history since last seen: Mr Teague had ripped out two IVs yesterday and was refusing both IV and oral medications this morning. When I ask him how he is doing, he says medium. He then states he does not understand when I ask him further questions. When I try to write on the white board, he waves me away. He met with his daughter and son today. Per son, he told the daughter he would cooperate with medications, so nursing was going to attempt to place an IV. Exam Narrative Exam Narrative: General: Elderly male who is A&O x1 (I cannot get the answer as to where we are or what the date is; he can't hear me); NAD, looks weak, on RA HEENT: EOMI, MMM Heart: RRR Lungs: CTAB Abdomen: soft, nontender, nondistended Extremities: no edema BLEs Objective Last Vital Signs Temp 36.1 C L 07/23/23 15:00 Pulse 96 H 07/23/23 15:00 Resp 17 07/23/23 15:00 BP 104/62 07/23/23 15:00 Pulse Ox 98 07/23/23 15:00 Laboratory Results - last 24 hr 07/22/23 07/23/23 18:50 06:20 WBC 9.19 RBC 4.01 L Hgb 10.0 L Hct 33.1 L MCV 83 MCH 24.9 L MCHC 30.2 L RDW 17.8 H Plt Count 141 MPV 9.7 Immature Gran % 0.5 Neutrophils % 82.3 Lymphocytes % 11.9 Monocytes % 5.2 Eosinophils % 0.0 Basophils % 0.1 Nucleated RBC % 0.0 Absolute Neutrophils 7.56 H Absolute Lymphocytes 1.09 L Absolute Monocytes 0.48 Absolute Eosinophils 0.00 Absolute Basophils 0.01 PT 10.8 INR 1.1 D-Dimer 2530 H Sodium 140 Potassium 3.1 L Chloride 107 Carbon Dioxide 24.6 Anion Gap 8.4 BUN 25 H Creatinine 1.0 Est GFR (CKD-EPI 2020) 72.84 Glucose 94 Calcium 8.4 L Magnesium 1.8 Ferritin 535 H Total Bilirubin 0.7 Conjugated Bilirubin 0.2 AST 21 ALT 21 Alkaline Phosphatase 111 C-Reactive Protein 5.24 H Total Protein 5.5 L Albumin 1.9 L 25-OH Vitamin D Total 28.5 L Procalcitonin 0.2 Time Spent with Patient Time Spent with Patient: 35-49 minutes Time was spent: preparing to see the patient(eg.review tests), obtaining and/or reviewing separately otained hiistory, ordering medications,tests, procedures, referring, communicating with other health healthcare corporate account director, indepentently interpreting results, counseling the patient and care coordination
[2023-07-23] MEDS: REMDESIVIR 100 MG in Normal Saline 250 ML 250 MG IVPB (16:37)
[2023-07-23] MEDS: VANCOMYCIN/WATER (PEG) 1.25 GM/250 ML BAG IV (17:51)
[2023-07-23 19:04] LABS: C Diff PCR Negative (Negative)
[2023-07-23 20:19] VITALS: BP 116/76; PULSE 107; RESP 18; TEMP 36.8; O2SAT 95
[2023-07-23 23:43] VITALS: BP 114/73; PULSE 113; RESP 18; TEMP 37; O2SAT 97
--- NOTE | 2023-07-24 05:53 | NUR.NOTE ---
Nursing Note: Staff found pt with his IV access removed again this morning. Pt informed staff that he did not want another one. Informed CC. Provider stated to not try for access again at this time.
[2023-07-24 06:35] LABS: Abs Immature Grans 0.16 10^3/uL (0.0-0.06); Absolute Basophil Count 0.03 10^3/uL (0.0-0.2); Absolute Lymphocyte Count 2.11 10^3/uL (1.2-3.4); Basophils % 0.2; Eosinophils % 0.1; HCT 36.2 % (40.0-50.0); HGB 11.1 g/dL (13.5-17.5); Lymphocytes % 13.2; MCH 25.5 pg (27.0-33.0); MCHC 30.7 % (32.0-36.0); MCV 83 fL (80-95); MPV 10.6 fL (8.0-11.0); Monocytes % 4.4; Neutrophils % 81.1; Platelet Count 192 10^3/uL (130-400); RBC 4.35 10^6/uL (4.36-5.78); RDW 18.2 % (11.8-14.1); RDW-SD 53.8 fL; WBC 15.96 10^3/uL (4.4-10.8)
[2023-07-24 06:43] LABS: Absolute Eosinophil Count 0.02 10^3/uL (0.0-0.7); Absolute Neutrophil Count 12.94 10^3/uL (1.2-6.7)
[2023-07-24 06:45] LABS: Prothrombin Time 10.5 sec (9.1-11.1)
[2023-07-24 07:02] LABS: Anion Gap 11.6 mmol/L (3-11); BUN 20 mg/dL (7-18); C-Reactive Protein 6.85 mg/dL (0.0-0.3); CO2 20.4 mmol/L (21.0-32.0); CREATININE 1.2 mg/dL (0.70-1.30); Calcium 8.6 mg/dL (8.5-10.1); Chloride 105 mmol/L (98-107); Estimated GFR 58.53 (mL/min/1.73m2); Glucose 105 mg/dL (74-106); Magnesium 1.8 mg/dL (1.8-2.4); Potassium 3.3 mmol/L (3.5-5.1); Sodium 137 mmol/L (136-145)
[2023-07-24 07:08] LABS: D-Dimer 3866 ng/mlFEU (<500)
[2023-07-24 08:10] VITALS: BP 128/94; PULSE 118; RESP 20; TEMP 36.7; O2SAT 97
[2023-07-24] MEDS: Loperamide 2 MG CAP PO (08:25)
[2023-07-24] MEDS: Cholecalciferol (Vitamin D3) 1,000 UNIT TAB 2000 UNITS PO (08:25)
[2023-07-24] MEDS: Enoxaparin 40 MG/0.4 ML SYR SC (08:26)
[2023-07-24 08:49] LABS: Bilirubin Negative (Negative); Blood Large (Negative); Clarity Clear (Clear); Glucose Negative (Negative); Ketones Trace mg/dL (Negative); Leukocyte Esterase Negative (Negative); Nitrite Negative (Negative); Urobilinogen 0.2 mg/dL (Up to 0.2); pH 5.5 (5-8)
[2023-07-24 08:58] LABS: Bacteria Negative HPF (Negative); C & S Indicated? No; Casts 0-2 Hyaline LPF (Negative); Crystals Negative HPF (Negative); Epithelial Cells Rare HPF (Negative); Mucus Trace (Negative); RBC 20-50 HPF (0-2); WBC Negative HPF (0-5)
--- NOTE | 2023-07-24 10:36 | PDOC.CMPRO ---
Date of service: 07/24/23 Time of Service: 10:42 Care Management Progress Note Progress Note Text Progress Note Text: S/O: Geronimo is on covid precautions and is [place], so unable to communicate by phone. Per report, Geronimo has been confused and refusing care. MD requested that palliative see him today as a priority, as the family is considering comfort measures at this time. Sarah, Palliative care, will see him and discuss options further with him and his family. CM will continue to follow. A: Geronimo is an 88 year old male admitted to [facility] on 07/21/23 for hypotension. P: Per MD, family discussion regarding goals of care anticipated. Stoney met with Dr. Abbott, anticipate Geronimo may transition to comfort care and remain at [facility]. Anticipate Palliative consult 07/24/23. CM continues to follow.
[2023-07-24 11:21] VITALS: BP 107/70; PULSE 100; RESP 20; TEMP 37.1; O2SAT 96
[2023-07-24 14:30] VITALS: BP 114/71; PULSE 107; RESP 17; TEMP 36.9; O2SAT 97
--- NOTE | 2023-07-24 17:02 | PCNE_ITS ---
Date of service: 07/24/23 Time of Service: 15:30 History of Present Illness Narrative: Mr. Melton is an 88 y/o M currently inpt at [facility] 2/2 severe sepsis, COVID; PMHx sig for HTN, OA, gout, COPD(?), leaky heart valves, questionable underlying cognitive impairment, which is complicated by significant hearing impairment Hospital Course: Geronimo was brought into [facility] ED on 07/21/23 s/p 1 wk of increased weakness, diarrhea and dehydration sxs; ED work up COVID +, ALDA, and met criteria for severe sepsis. Started on remdesivir. blood cultures positive for GPC in chains, plan for starting IVabx w/vanc and ceftriaxone however he does not currently have IV access d/t ripping it out x2 (at least); found to have stage III pressure sore, wound care consult placed per nursing: got up out of bed today, requiring partial assist; incontinent of urine, will use urinal if prompted, will not ask for it; no BM today, did receive imodium this morning; tolerating fluids well, low/poor PO intake, ate 25% of lunch, was interested in [id number]. does not complain of pain, does not appear of pain, breathing comfortably on room air - daughter Stoney and son Geronimo both visited yesterday - he has pulled out IVs 3 times, he told one nurse it was an accident and others he does not want one in - told one nurse, people aren't explaining things to me, from report things have been explained multiple times - he is tolerating pills fine per CM: he lives alone in [place] w/grandson living w/him as well, however he works so is not available all the time, family member Ingrid also avail to help, some caregiver assistance; no AD or HCA on file. 4 daughters 1 son (1 has predeceased Geronimo), around 6 years ago. - chart review: consistent refusal for interventions, not wanting invasive treatments or procedures, stopping medications. in December 2022, it is documented he said when it is my time I am ready to go, would not want to pursue further testing or interventions. - he has had worsening PO intake for months, declined further work-up per PCP Geronimo is lying in dark room at time of visit. He agrees to visit for a short time. Geronimo reports he has 4 daughters, 1 remaining son. He would trust his 3 daughters to make his choices, and identifies Stoney as preferred HCA at this time, with preference for children to be on same page. He would like his care directed at comfort, would not want invasive testing or procedures. He is uncertain if he would want antibiotics or an IV placed again and would like to think about it more, as he is tired now. - He is not aware that he has a bacterial infection or COVID - He would want things to end if he was given a terminal diagnosis - he denies pain, denies shortness or breath or difficulty breathing - he would like a sip of water, he denies hunger attempted to call daughter Stoney, no answer, left Assessment and Plan Assessment and plan (1) Severe sepsis: Status: Acute Assessment and plan: blood cultures +GPC in chains preference for SLUDGE FILTRATION ATTENDANT if no improvement - Today Geronimo would like to think more about antibiotics, and defers further conversation d/t fatigue; - agree w/POC: if IV access again pulled or refused, consider oral antibiotics based on preference - or SLUDGE FILTRATION ATTENDANT, which may transition to before oral abx pending conversation w/Geronimo and Stoney He verbalized HCA status to daughter Stoney today (unable to sign HCA during visit) (2) Failure to thrive in adult: Status: Acute Assessment and plan: chronic w/significant weight loss, increasing weakness weight 07/2023: 221lbs, 03/2023: 199lbs, 05/2023 177lbs, most recent 158lbs - demonstrating a 63lb weight loss in 1 year and 41lbs in 4 months (20%) (3) Decubitus ulcer, stage III: Status: Acute Assessment and plan: wound care following protein calorie malnutrition contributing Qualifiers: Pressure injury location: buttock Laterality: unspecified laterality Qualified Code(s): L89.303 - Pressure ulcer of unspecified buttock, stage 3 (4) Discharge planning issues: Status: Acute Assessment and plan: would need FT caregiving support at home, not available at this time (5) Hypokalemia: Status: Acute (6) ALDA (acute kidney injury): Status: Acute (7) COVID-19: Status: Acute Assessment and plan: on remdesivir remains on RA (8) Acute hypotension: Status: Resolved (9) Acute dehydration: Status: Acute (10) Diarrhea: Status: Acute Assessment and plan: none today Imodium this AM Qualifiers: Diarrhea type: presumed infectious Qualified Code(s): R19.7 - Diarrhea, unspecified (11) Bilateral hearing loss: Status: Acute Assessment and plan: improved w/pocket talker - left in room for repeat use - encourage repeat conversations to allow him opportunity to engage in health care decisions (12) ACP (advance care planning): Status: Acute Assessment and plan: verbalized HCA: daughter Stoney, would want all children to review and agree together If terminal, focus on comfort first. He is unsure if he wants an IV put back in today, would like to think about it. Wants to think about antibiotics - d/t his significant hearing impairment, palliative recommends a repeat conversation w/pocket talker to appropriately review POC - today he had capacity to identify HCA, deferred further conversations of care preferences d/t fatigue - did not answer preference on returning home vs remaining in hospital (13) Palliative care encounter: Status: Acute Assessment and plan: PC will continue to follow, plan for f/u tomorrow if needed - attempted to call Stoney to review POC, did not answer - reviewed w/hospitalist - will present oral abx as option if refuses IV access or removes again Review of Systems Narrative: as per HPI PFSH All Active Problems (Updated 07/24/23 @ 17:20 by Sarah Medina NP) Palliative care encounter (Acute) ACP (advance care planning) (Acute) Discharge planning issues (Acute) DVT prophylaxis (Acute) Decubitus ulcer, stage III (Acute) Failure to thrive in adult (Acute) Hypokalemia (Acute) ALDA (acute kidney injury) (Acute) COVID-19 (Acute) Severe sepsis (Acute) Acute dehydration (Acute) Hypokalemia (Acute) Diarrhea (Acute) Acute renal failure (Acute) Status post hip replacement (Acute) Mitral murmur (Acute 02/15/17) Hyperplasia of prostate (Acute) Hyperlipidemia (Acute 08/20/12) History of tobacco use (Acute) Gout (Acute) Generalized osteoarthrosis (Acute) Generalized osteoarthrosis (Acute) Edentulous (Acute 10/25/17) Colonoscopy refused (Acute 10/25/17) Chronic obstructive lung disease (Acute) Cardiac murmur (Acute 10/25/17) Cardiac murmur, unspecified (Acute) ? of mitral reguritation Bilateral hearing loss (Acute 10/25/17) Hypertension (Chronic) Diarrhea (Acute) Chronic abdominal pain (Acute) Rectal mass (Acute) adenomatous polyp. 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 Gout (Chronic) Aortic stenosis (Chronic) mild echo 2022 Iron deficiency anemia due to chronic blood loss (Acute) Rectal bleeding (Acute) Hard of hearing (Acute) Villous adenoma (Acute ~12/27/22) Medical History Hx of flexible sigmoidoscopy 12/13/22 Cataract surgery bilat Surgical History History of surgery on arm R arm as a boy History of colonoscopy (~12/27/22) [place] Social History Smoking/Tobacco Use Status: Former Tobacco Use Quit Date: 09/18/64 Tobacco: How many years used: 20 Smoking risk assessment performed?: Yes Alcohol Intake: never Drug use: Never Substance use type: does not use Housing: condominium Do you feel safe at home: Yes Do you feel safe in your relationship?: Yes Exam Narrative Exam Narrative: General: older adult male, lying in bed in dark room, cooperative, thin, ill appearing; unable to reposition indedependent HEENT: extremely [place], use of pocket talker w/good effect; normocephalic, atraumatic; sips fluid appropriately from straw Resp: even and regular rate, shalow, able to speak 1-2 sentences w/no resp pattern changes, then requires rest Skin: atrophy, scattered bruising Ext: bilat heels wrapped, no pedal edema, radial pulse 2+ Neuro: AA, confused Psych: cooperative, fatigued, speech/movement delayed (potentially d/t weakness/hearing), thought process impoverished; insight/judgment limited Results Last Vital Signs Temp 98.4 F 07/24/23 14:30 Pulse 107 H 07/24/23 14:30 Resp 17 07/24/23 14:30 BP 114/71 07/24/23 14:30 Pulse Ox 97 07/24/23 14:30 Labs 07/24/23 05:35 07/24/23 05:35 Labs: Laboratory Results - last 24 hr 07/23/23 07/24/23 07/24/23 17:59 05:35 08:29 WBC 15.96 H RBC 4.35 L Hgb 11.1 L Hct 36.2 L MCV 83 MCH 25.5 L MCHC 30.7 L RDW 18.2 H Plt Count 192 MPV 10.6 Immature Gran % 1.0 Neutrophils % 81.1 Lymphocytes % 13.2 Monocytes % 4.4 Eosinophils % 0.1 Basophils % 0.2 Nucleated RBC % 0.0 Absolute Neutrophils 12.94 H Absolute Lymphocytes 2.11 Absolute Monocytes 0.70 Absolute Eosinophils 0.02 Absolute Basophils 0.03 PT 10.5 INR 1.0 D-Dimer 3866 H Sodium 137 Potassium 3.3 L Chloride 105 Carbon Dioxide 20.4 L Anion Gap 11.6 H BUN 20 H Creatinine 1.2 Est GFR (CKD-EPI 2020) 58.53 Glucose 105 Calcium 8.6 Magnesium 1.8 C-Reactive Protein 6.85 H Urine Color Dark Yellow Urine Clarity Clear Urine pH 5.5 Ur Specific [place] 1.020 Urine Protein 30 H Urine Ketones Trace H Urine Blood Large H Urine Nitrite Negative Urine Bilirubin Negative Urine Urobilinogen 0.2 Ur Leukocyte Esterase Negative Urine RBC 20-50 H Urine WBC Negative Ur Epithelial Cells Rare Urine Crystals Negative Urine Bacteria Negative Urine Casts 0-2 Hyaline Urine Mucus Trace Ur Culture Indicated? No Urine Glucose Negative Stl C.difficile Tox PCR Negative
[2023-07-24 18:51] VITALS: BP 119/51; PULSE 99; RESP 18; TEMP 36.4; O2SAT 97
--- NOTE | 2023-07-24 19:17 | W.PM.PROGNOT ---
Date of Service Date of service: 07/24/23 Time of Service: 19:17 Assessment and Plan Assessment and plan (1) Severe sepsis: Status: Acute Assessment and plan: -Blood cx positive for GPC in chains, speciation is still not back D/c abx as the patient is pretty clear about his goals of care. Palliative care is working with family in regards to further direction of care. Discussed with the daughter Candy this morning and with palliative care. (2) COVID-19: Status: Acute Assessment and plan: On RA. I have d/c'ed remdesivir. (3) Acute hypotension: Status: Resolved Assessment and plan: I have d/c'ed IVF. (4) Diarrhea: Status: Acute Assessment and plan: presumed due to COVID-19 Stool studies are pending prn loperamide is ordered Qualifiers: Diarrhea type: presumed infectious Qualified Code(s): R19.7 - Diarrhea, unspecified (5) ALDA (acute kidney injury): Status: Acute Assessment and plan: We will no longer check labs (6) Hypokalemia: Status: Acute Assessment and plan: as above - no longer checking labs (7) Decubitus ulcer, stage III: Status: Acute Assessment and plan: -present on admission Wound care consulted Qualifiers: Pressure injury location: buttock Laterality: unspecified laterality Qualified Code(s): L89.303 - Pressure ulcer of unspecified buttock, stage 3 (8) Failure to thrive in adult: Status: Acute Assessment and plan: Palliative care consulted. The patient appears to be electing comfort measures. (9) DVT prophylaxis: Status: Acute Assessment and plan: I have d/c'ed chemical DVT ppx due to the patient's verbalized wishes (10) Discharge planning issues: Status: Acute Assessment and plan: DNR/DNI Nearing comfort measures. Subjective Subjective Interval history since last seen: Today, I spoke with the patient using a pocket-talker, and he was able to hear me. He knew he was in [facility], but did not know the date. He stated he felt a little short of breath, was not in pain, was not dizzy, was not nauseated. Overall, he is comfortable. We discussed that he had both COVID and a bloodborne infection. I had asked him if he wanted us to treat the infection or if he just wanted to be made comfortable. He stated he just wants to be made comfortable, even if it means that he dies. When I asked him if he would accept pills, he said no. Exam Narrative Exam Narrative: General: Elderly male who is A&O x2, on RA, looks comfortable, no dyspnea/tachypnea/cyanosis HEENT: EOMI, MMM Heart: RRR Lungs: CTAB Abdomen: soft, nontender, nondistended Extremities: no edema BLEs Objective Last Vital Signs Temp 36.4 C L 07/24/23 18:51 Pulse 99 H 07/24/23 18:51 Resp 18 07/24/23 18:51 BP 119/51 L 07/24/23 18:51 Pulse Ox 97 07/24/23 18:51 Laboratory Results - last 24 hr 07/24/23 07/24/23 05:35 08:29 WBC 15.96 H RBC 4.35 L Hgb 11.1 L Hct 36.2 L MCV 83 MCH 25.5 L MCHC 30.7 L RDW 18.2 H Plt Count 192 MPV 10.6 Immature Gran % 1.0 Neutrophils % 81.1 Lymphocytes % 13.2 Monocytes % 4.4 Eosinophils % 0.1 Basophils % 0.2 Nucleated RBC % 0.0 Absolute Neutrophils 12.94 H Absolute Lymphocytes 2.11 Absolute Monocytes 0.70 Absolute Eosinophils 0.02 Absolute Basophils 0.03 PT 10.5 INR 1.0 D-Dimer 3866 H Sodium 137 Potassium 3.3 L Chloride 105 Carbon Dioxide 20.4 L Anion Gap 11.6 H BUN 20 H Creatinine 1.2 Est GFR (CKD-EPI 2020) 58.53 Glucose 105 Calcium 8.6 Magnesium 1.8 C-Reactive Protein 6.85 H Urine Color Dark Yellow Urine Clarity Clear Urine pH 5.5 Ur Specific [place] 1.020 Urine Protein 30 H Urine Ketones Trace H Urine Blood Large H Urine Nitrite Negative Urine Bilirubin Negative Urine Urobilinogen 0.2 Ur Leukocyte Esterase Negative Urine RBC 20-50 H Urine WBC Negative Ur Epithelial Cells Rare Urine Crystals Negative Urine Bacteria Negative Urine Casts 0-2 Hyaline Urine Mucus Trace Ur Culture Indicated? No Urine Glucose Negative Time Spent with Patient Time Spent with Patient: 35-49 minutes Time was spent: preparing to see the patient(eg.review tests), obtaining and/or reviewing separately otained hiistory, ordering medications,tests, procedures, referring, communicating with other health district manager primary care sales, indepentently interpreting results, counseling the patient and care coordination
[2023-07-24 22:54] LABS: Campylobacter PCR Negative (Negative); Salmonella PCR Negative (Negative); Shiga Toxin PCR Negative (Negative); Shigella/Enteroinvasive Ecoli Negative (Negative)
[2023-07-25 02:46] VITALS: BP 111/67; PULSE 92; RESP 16; TEMP 36.7; O2SAT 96
[2023-07-25 07:39] VITALS: BP 119/74; PULSE 92; RESP 18; TEMP 36.6; O2SAT 95
--- NOTE | 2023-07-25 11:36 | PCPN_ITS ---
Date of service: 07/25/23 Time of Service: 11:36 Assessment and Plan Assessment and plan (1) Palliative care encounter: Status: Acute Assessment and plan: 88-year-old gentleman with GPC sepsis and COVID, pulling out IVs and refusing to take any additional medications. Seems to have capacity for simple decisions but not more complex ones. However he is refusing to take medications and asking to go home. His daughter, is healthcare agent, feels that transitioning to hospice would most closely align with his wishes. Family understands that he is most likely to pass away in the next 2 weeks given untreated sepsis. My [id number] conversation with patient today, he wants to go home and adamantly declines to have any further medications or IV use or treatment. Plan: -Patient will stay overnight in the hospital. He will be transferred home tomorrow and admitted to hospice. Dr. Fonseca of hospice is aware. -Recommend stopping all regular medications. Continue Tylenol as needed for fever or pain. Consider adding as needed medications in case patient has uncontrolled pain or dyspnea, but currently seems quite comfortable. (2) ACP (advance care planning): Status: Acute (3) Discharge planning issues: Status: Acute (4) Severe sepsis: Status: Acute (5) COVID-19: Status: Acute (6) Failure to thrive in adult: Status: Acute Subjective Subjective Interval history since last seen: 88-year-old gentleman admitted to [facility] 4 days ago with sepsis(Blood cultures positive for gram-positive cocci) and COVID. Past medical history significant for hypertension, OA, gout, COPD, heart valve problem and possible mild cognitive impairment. He has significant hearing loss, which makes interactions more challenging. See yesterday's palliative care note by Sarah Medina NP for more in-depth history. I was Asked to follow-up today with patient and family, as patient has been ref using all medications and has not allowed IVs to be replaced. However, earlier today pat's daughter met with Dr. Isidro from Hospice. Family feels that they would like to take him home on hospice. As per family they could care for him for 2 weeks. There are enough children to do this. Daughter reports that he does not want any more treatment and wants to go home and . Dr. Isidro did not speak with patient I met with patient in his room. I used pocket talker. I was able to engage in conversation with him easily with pocket talker. As soon as he took the headphones off, he was unable to understand anything I said. When asked patient how he is doing he says okay . Patient reports that he wants to go home. He does not want to take anymore medication including antibiotics. When explained that he is quite ill and without antibiotics he might , he says I want to go home . Patient is finishing eating cookie. Has not eaten anything else on his tray. He said the cookie taste good. Function prior to admission: -Chart review today shows that PCP had recommended palliative care consultation during an outpatient visit 2 months ago. I think this was due to weight loss and failure to thrive. PCP also notes 40 pound weight loss, refusal to have leaky heart valve repaired several years ago. Blood work yesterday: Creatinine: 1.2 down from high of 2.0 Hemoglobin: 11.1, Albumin: 1.9 Exam Narrative Exam Narrative: Awake and alert elderly gentleman. Very hard of hearing. Able to hold conversation and get appropriate answers to questions with pocket talker on. He is in no distress when I see him, finishing eating a cookie. Objective Last Vital Signs Temp 36.6 C 07/25/23 07:39 Pulse 92 H 07/25/23 07:39 Resp 18 07/25/23 07:39 BP 119/74 07/25/23 07:39 Pulse Ox 95 07/25/23 07:39 Laboratory Results - last 24 hr 07/23/23 17:59 Stool Campylobacter PCR Negative Stool Salmonella PCR Negative Stool Shigella PCR Negative Shiga Toxin (PCR) Negative
--- NOTE | 2023-07-25 13:55 | WOUNDCONS_ITS ---
Date of service: 07/25/23 Time of Service: 12:00 Wound Initial Evaluation Narrative Narrative: Photo consent obtained for wound consult for 88 year old male with unstageable pressure injuries on bilateral heels and a stage III pressure injury on sacrum. 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 Patient denies pain while this internal communications writer performs wound assessment but states there is, pain back there sometimes. H&P reviewed, most recent labs, allergies and current orders. Patient will be transitioning to hospice care and the plan is to go home on the following day. Patient was admitted for weakness, and dehydration and found COVID+. Patient is breathing freely on room air. Patient denies hunger and reports recent weight loss. This internal communications writer referred to the pressure injuries as bed sores to the patient and with use of the pocket talker, the patient verbalized understanding of the wounds. Patient also verbalized understanding of the need to offload areas and participate in frequent repositioning. Wound Bilateral Heels: Wound Type: Pressure Ulcer Pressure Ulcer Stage: Eschar/Unstageable Wound General Appearance: Blackened Wound Bed Greatest Portion: Black (Eschar) Percent of Wound Bed Eschar/Black: 100 Wound Length: 3.5 cm Wound Width: 3.5 cm Wound Drainage Amount: None Additional Other Comments: Bilateral heel protectors in use. Bilateral heels are elevated on pillows. Sacrum: Wound Type: Pressure Ulcer Pressure Ulcer Stage: III Wound Bed Greatest Portion: Yellow (Slough) Wound Surrounding Tissue Appearance: Edges Rolled Percent of Wound Bed Slough/Yellow: 80 Wound Length: 2.5 cm Wound Width: 1.4 cm Wound Drainage Amount: Minimal Wound Drainage Odor: None/Absent Wound Drainage Description: Purulent Wound Summary Wound Summary: Bilateral heels are blackened and unstageable. Sacrum pressure injury has rolled edges and slough within the wound. Photo Photo: Nutrition Education Reviewed Nutrition Education: Yes Note: Patient reports little appetite. Patient verbalizes understanding of the need for increased protein for optimum wound healing. Recomendation Recomendation:: Every 3 days or as needed, after removal of the sacral dressing: Rinse with Skintegrity wound wall cleaner and pat dry. Apply MediHoney to wound and cover with a Mepilex dressing. For bilateral heels: Replace dressing as needed for protection Physcian/Nurse Practioner Notified: Yes
--- NOTE | 2023-07-25 13:58 | PGE_ITS ---
Date of Service Date of service: 07/25/23 Time of Service: 13:58 Assessment and Plan Assessment and plan (1) Severe sepsis: Status: Acute Assessment and plan: -Blood cx positive for GPC in chains, patient adamantly refusing treatment with IV antibiotics, refusing oral meds also Palliative care is working with family in regards to further direction of care. Discussed with the daughter Candy this morning and with palliative care, plan now for discharge to home on hospice tomorrow.. (2) COVID-19: Status: Acute Assessment and plan: On RA. refusing remdesivir. (3) Acute hypotension: Status: Resolved (4) Diarrhea: Status: Acute Assessment and plan: presumed due to COVID-19 prn loperamide is ordered Qualifiers: Diarrhea type: presumed infectious Qualified Code(s): R19.7 - Diarrhea, unspecified (5) ALDA (acute kidney injury): Status: Acute Assessment and plan: no longer checking labs (6) Hypokalemia: Status: Acute Assessment and plan: as above - no longer checking labs (7) Decubitus ulcer, stage III: Status: Acute Assessment and plan: -present on admission Qualifiers: Pressure injury location: buttock Laterality: unspecified laterality Qualified Code(s): L89.303 - Pressure ulcer of unspecified buttock, stage 3 (8) Failure to thrive in adult: Status: Acute Assessment and plan: Palliative care consulted. The patient and family electing comfort measures. (9) DVT prophylaxis: Status: Acute Assessment and plan: refusing chemical DVT ppx (10) Discharge planning issues: Status: Acute Assessment and plan: DNR/DNI comfort measures with plan to discharge to home tomorrow on hospice. discussed with Dr Abbott Subjective Subjective Patient reports: no new complaints Interval history since last seen: still refusing IV and some care Objective Last Vital Signs Temp 36.6 C 07/25/23 07:39 Pulse 92 H 07/25/23 07:39 Resp 18 07/25/23 07:39 BP 119/74 07/25/23 07:39 Pulse Ox 95 07/25/23 07:39 Laboratory Results - last 24 hr 07/23/23 17:59 Stool Campylobacter PCR Negative Stool Salmonella PCR Negative Stool Shigella PCR Negative Cryptosporidium/Giardia SEE BELOW Shiga Toxin (PCR) Negative Time Spent with Patient Time Spent with Patient: 35-49 minutes Time was spent: preparing to see the patient(eg.review tests), ordering medications,tests, procedures, referring, communicating with other health residential care facility manager, indepentently interpreting results and care coordination
[2023-07-25 15:30] VITALS: BP 116/79; PULSE 146; RESP 18; TEMP 36.6; O2SAT 99
--- NOTE | 2023-07-25 16:17 | W.PM.DS.N ---
Date of service: 07/26/23 Time of Service: 09:30 DS: Diagnosis Discharge Diagnosis (1) Severe sepsis: Status: Acute (2) COVID-19: Status: Acute (3) Acute hypotension: Status: Resolved (4) Diarrhea: Status: Acute (5) ALDA (acute kidney injury): Status: Acute (6) Hypokalemia: Status: Acute (7) Decubitus ulcer, stage III: Status: Acute (8) Failure to thrive in adult: Status: Acute Discharge Plan Disposition Patient Disposition: Home W/Hospice Services Condition: Stable Discharge Details Reason For Visit: Hypotension Admit Date/Time: 07/21/23 14:16 Admit Provider: Nigel Hyde Attending Provider: Nigel Hyde Primary Care Provider: Mehnaz Clifford Hospital Course Hospital Course: This is an 88-year-old male with past medical history of hypertension, osteoarthritis, gout who presented emergency department with 1 week of diarrhea, weakness and falling at home. His work-up in the emergency department showed sepsis blood cultures growing Str. gallolyticus (S. bovis, he was also found to be COVID-positive. Hospitalist services was contacted and he was admitted to the medical surgical unit on remdesivir and broad-spectrum antibiotics. Right from the beginning he was adamantly declining IV medication, pulling out several IVs. There were several discussions with his daughter who is his DPOA about honoring his wishes and allowing him comfort measures. Palliative care consult was placed and using shared decision making his wishes will be honored and plan is to discharge to home on hospice services. Home Meds and New Rx's Prescriptions: No Action hydrochlorothiazide 25 mg tablet 25 mg PO DAILY Qty: 90 4RF lisinopril 20 mg tablet 20 mg PO DAILY Qty: 90 4RF oxycodone 5 mg tablet 5 mg PO BID MDD 10 mg PRN (Reason: pain) Qty: 30 0RF mirtazapine 7.5 mg tablet 7.5 mg PO QHS Qty: 30 1RF morphine concentrate 100 mg/5 mL (20 mg/mL) solution See Rx Instructions PO Q1H PRN MDD 120 mg Qty: 30 0RF Rx Instructions: 0.25-1.0 ml orally every 1 hour, as needed; HOSPICE lorazepam 0.5 mg tablet 0.5 mg PO Q4H PRN MDD 3 mg PRN (Reason: anxiety) Qty: 10 0RF Rx Instructions: hospice acetaminophen [Tylenol Extra Strength] 500 mg Tablet 1,000 mg PO QID PRN blood flow 7 agee oil Probiotic Colon Support 1.5 billion cell capsule PO BP [place] circuflex cardioteck supplement Liver support supplement [place] Q plus ferrous sulfate [Feosol] 325 mg (65 mg iron) tablet 325 mg PO DAILY Discharge Instructions Instructions: Bacteremia (DC), COVID-19 (Coronavirus Disease 2019) (DC) Additional Instructions: medication to be overseen by hospice. Stand Alone Forms: Nursing Discharge Form Referrals: Mehnaz Clifford NP [Primary Care Provider] - 08/01/23 10:00 am Activity:: Activity as Tolerated Equipment/Supplies:: No Equipment Needed Diet:: As Tolerated Discharge Orders Discharge Orders: Discharge Order (Routine); Ordered 07/26/23 Ordered By: Erica Bejarano DS: Summary Time Spent with Patient providing and/or coordinating discharge services: Greater than 30 minutes Status at Discharge Functional status at discharge: bed bound Overall status at discharge: patient is not back to baseline Mental Status: other Speech and Movement: speech and movement normal Mood: congruent mood and other Affect: normal affect Exam Psych Mental Status: other Speech and Movement: speech and movement normal Mood: congruent mood and other Affect: normal affect DS: Data Vitals/I&O Vitals and I&O: Vital Signs Temperature 36.6 C 07/25/23 15:30 Temperature Source Tympanic 07/25/23 15:30 Pulse 146 H 07/25/23 15:30 Pulse Rhythm Regular 07/25/23 13:42 Pulse 70 07/21/23 13:30 Respiratory Rate 18 07/25/23 15:30 Respiratory Effort Normal, Non-Labored 07/25/23 13:42 Respiratory Depth Normal 07/25/23 13:42 Respiratory Pattern Normal 07/24/23 08:00 Blood Pressure 116/79 07/25/23 15:30 Blood Pressure Mean 70 07/21/23 13:16 Blood Pressure Position Supine 07/21/23 11:43 Pulse Oximetry 99 07/25/23 15:30 Oxygen Delivery Method Room Air 07/25/23 15:30 Oxygen Flow Rate 0 07/25/23 15:30 Pain Level 0 07/25/23 15:30 Comment Pt off NC upon entry to room. SpO2 98% sustained on RA. D/C'd NC ATT 07/22/23 03:30 Intake & Output 07/24/23 07/25/23 07/25/23 23:59 11:59 23:59 Intake Total 0 / 0 Output Total 250 / 350 50 / 100 50 / 100 Balance -250 / 1190.333 -50 / -100 -50 / -100 Intake: Oral 0 / 0 Output: Urine 250 / 350 50 / 100 50 / 100 Other: Urine Color Light Regina Light Regina Light Reigna Urine Appearance Clear Clear Clear Comment Small amount of urine. Voiding Methods Diaper Incontinent Data Completed and Pending Labs on day of discharge: Labs from last 24 hours 07/23/23 17:59 Stool Campylobacter PCR Negative Stool Salmonella PCR Negative Stool Shigella PCR Negative Cryptosporidium/Giardia SEE BELOW Shiga Toxin (PCR) Negative Preliminary micro results at discharge 07/24/23 05:38 Blood Culture - Preliminary Blood NO GROWTH 24 HOURS 07/24/23 05:35 Blood Culture - Preliminary Blood NO GROWTH 24 HOURS PFSH All Active Problems (Updated 07/26/23 @ 00:05 by COLEMAN MALONE) Palliative care encounter (Acute) ACP (advance care planning) (Acute) Decubitus ulcer, stage III (Acute) Failure to thrive in adult (Acute) Hypokalemia (Acute) ALDA (acute kidney injury) (Acute) COVID-19 (Acute) Severe sepsis (Acute) Acute dehydration (Acute) Hypokalemia (Acute) Diarrhea (Acute) Acute renal failure (Acute) Status post hip replacement (Acute) Mitral murmur (Acute 02/15/17) Hyperplasia of prostate (Acute) Hyperlipidemia (Acute 08/20/12) History of tobacco use (Acute) Gout (Acute) Generalized osteoarthrosis (Acute) Generalized osteoarthrosis (Acute) Edentulous (Acute 10/25/17) Colonoscopy refused (Acute 10/25/17) Chronic obstructive lung disease (Acute) Cardiac murmur (Acute 10/25/17) Cardiac murmur, unspecified (Acute) ? of mitral reguritation Bilateral hearing loss (Acute 10/25/17) Hypertension (Chronic) Diarrhea (Acute) Chronic abdominal pain (Acute) Rectal mass (Acute) adenomatous polyp. 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 Gout (Chronic) Aortic stenosis (Chronic) mild echo 2022 Iron deficiency anemia due to chronic blood loss (Acute) Rectal bleeding (Acute) Hard of hearing (Acute) Villous adenoma (Acute ~12/27/22) Medical History Hx of flexible sigmoidoscopy 12/13/22 Cataract surgery bilat Surgical History History of surgery on arm R arm as a boy History of colonoscopy (~12/27/22) [place] Social History Smoking/Tobacco Use Status: Former Tobacco Use Quit Date: 09/18/64 Tobacco: How many years used: 20 Smoking risk assessment performed?: Yes Alcohol Intake: never Drug use: Never Substance use type: does not use Housing: condominium Do you feel safe at home: Yes Do you feel safe in your relationship?: Yes Time Spent with Patient Time Spent with Patient: 45-69 minutes Time was spent: preparing to see the patient(eg.review tests), ordering medications,tests, procedures, referring, communicating with other health career technical education teacher and care coordination
--- NOTE | 2023-07-25 16:18 | CMPROGNOTE_ITS ---
Date of service: 07/25/23 Time of Service: 16:18 Care Management Progress Note Progress Note Text Progress Note Text: Per planning with Hospitalist, daughter, Stoney and Dr. Isidro, Geronimo will return home tomorrow, 07/26/23 via EMS: [facility] at 1000. Stoney reports he already has a hospital bed at home. Rick at [facility] called to request morning discharge. CM notified Erica HILLIARD who was agreeable to 1000 discharge. Geronimo will return home to be admitted to Hospice; CM left discharge planning information on referral line at [facility], and notified RNCC as well as Nursing Cook [employer].
[2023-07-25 20:59] VITALS: BP 129/89; PULSE 136; RESP 22; TEMP 36.8; O2SAT 99
--- NOTE | 2023-07-26 07:07 | PDOC.CMDIS ---
Date of service: 07/26/23 Time of Service: 07:08 LACE Index Scoring Tool Questions: Length of Stay (in days): 4 - 6 Was the patient admitted via the E.D.?: Yes Comorbidities: Chronic Pulmonary Disease, Mild Liver/Renal Disease and Liver or Renal Disease E.D. Visits: 1 Answers: Total Score: 13 Risk of Readmission: High Risk Care Management Discharge Plan Reason for Hospitalization: Severe sepsis, COVID-19, Hypotension Discharge Plan: Greonimo will return home via EMS: [facility] at 1000. Stoney reports he already has a hospital bed at home. Rick at [facility] called to request morning discharge. CM notified Erica HILLIARD who was agreeable to 1000 discharge. Geronimo will return home to be admitted to Hospice with family and caregiver support; CM left discharge planning information on referral line at [facility], and notified RNCC as well as Nursing Supervising Broker. Patient/Family Education Needs: Review discharge instructions, discuss Ask Me Three. Services Needed at Discharge: DME Agency, Home Health Care Services and Transportation
[2023-07-26 08:11] VITALS: BP 111/68; PULSE 94; RESP 18; TEMP 36.4; O2SAT 94
== END 2023-07-26 10:12 | disposition hospice, home (50) | DRG 871 ==
LOC: ER 12:47 → MS 14:18
PROVIDERS: Internal Medicine; Admitting Provider Family Medicine; Emergency Provider Emergency Medicine; PCP Nurse Practitioner Family; Visit Provider Family Medicine
DX: A40.8 Other streptococcal sepsis (principal); L89.153 Pressure ulcer of sacral region, stage 3; U07.1 COVID-19; N17.9 Acute kidney failure, unspecified; A09 Infectious gastroenteritis and colitis, unspecified; R65.20 Severe sepsis without septic shock; E87.6 Hypokalemia; R62.7 Adult failure to thrive; E86.0 Dehydration; H91.93 Unspecified hearing loss, bilateral; Z66 Do not resuscitate; M10.9 Gout, unspecified; L89.620 Pressure ulcer of left heel, unstageable; L89.610 Pressure ulcer of right heel, unstageable; I10 Essential (primary) hypertension; R29.6 Repeated falls
CPT/HCPCS: 00123; 36415; 80048; 80053; 80076; 82306; 82550; 83690; 84145; 85027; 87040; 87077; 87329; 87493; 87505; 87635; 93005; 96361; 96365; 99291; J1650; 81003; 81015; 82728; 83630; 83735; 85025; 85379; 85610; 86140; 87177; 87186; 93010; 99232; 99233; 99239; J0248; J3480

== ENCOUNTER 2023-08-18 10:29 | Outpatient (REF) | payer MEDICARE, SELFPAY ==
[2023-08-18 12:48] LABS: Abs Immature Grans 0.07 10^3/uL (0.0-0.06); Absolute Basophil Count 0.02 10^3/uL (0.0-0.2); Absolute Lymphocyte Count 0.62 10^3/uL (1.2-3.4); Absolute Monocyte Count 0.57 10^3/uL (0.1-0.8); Absolute Neutrophil Count 8.74 10^3/uL (1.2-6.7); Basophils % 0.2; HGB 8.4 g/dL (13.5-17.5); Immature Grans % 0.7; Lymphocytes % 6.2; MCV 87 fL (80-95); MPV 9.5 fL (8.0-11.0); Monocytes % 5.7; Neutrophils % 87.2; Platelet Count 321 10^3/uL (130-400); RBC 3.23 10^6/uL (4.36-5.78); RDW 18.6 % (11.8-14.1); RDW-SD 58.9 fL; WBC 10.02 10^3/uL (4.4-10.8)
[2023-08-18 12:53] LABS: ESR 17 mm/hr (0-20)
[2023-08-18 13:14] LABS: ALT 15 U/L (16-63); AST 20 U/L (15-37); Alkaline Phosphatase 115 U/L (46-116); Anion Gap 6.9 mmol/L (3-11); BUN 19 mg/dL (7-18); Bilirubin, Total 0.6 mg/dL (0.2-1.0); CO2 31.1 mmol/L (21.0-32.0); CREATININE 1.1 mg/dL (0.70-1.30); Calcium 8.1 mg/dL (8.5-10.1); Chloride 101 mmol/L (98-107); Estimated GFR 64.97 (mL/min/1.73m2); Glucose 108 mg/dL (74-106); Potassium 3.1 mmol/L (3.5-5.1); Sodium 139 mmol/L (136-145); Total Protein 5.3 g/dL (6.4-8.2)
== END 2023-08-18 10:30 | disposition home or self-care (01) ==
LOC: LBN 10:29
PROVIDERS: PCP Nurse Practitioner Family; Visit Provider Nurse Practitioner Family
DX: N17.9 Acute kidney failure, unspecified (principal); R62.7 Adult failure to thrive
CPT/HCPCS: 80053; 85652; 85025

== ENCOUNTER 2023-08-25 21:36 | Emergency (ER) | payer MEDICARE, SELFPAY ==
[2023-08-25] VITALS (13 sets, daily range): BP systolic 110–123; BP diastolic 47–63; PULSE 89–116; RESP 14–25; TEMP 36.4–36.6; O2SAT 90–97
--- NOTE | 2023-08-25 21:49 | ED.GENADUL_ITS ---
Discharge Plan Disposition Patient Disposition: Home Discharge Details Chief Complaint: GenMedical Clinical Impression: Agitation Primary Care Provider: Mehnaz Clifford ED Provider: Sandy Evans Home Meds and New Rx's Prescriptions: No Action oxycodone 5 mg tablet 5 mg PO BID MDD 10 mg PRN (Reason: pain) Qty: 30 0RF mirtazapine 7.5 mg tablet 7.5 mg PO QHS Qty: 30 1RF lorazepam 0.5 mg tablet 0.5 mg PO Q4H PRN MDD 3 mg PRN (Reason: anxiety) Qty: 10 0RF Rx Instructions: hospice furosemide [Lasix] 20 mg tablet 20 mg PO DAILY Qty: 30 1RF quetiapine [Seroquel] 25 mg tablet 25 mg PO BID Qty: 60 0RF Rx Instructions: hospice trazodone 150 mg tablet 150 mg PO QHS Qty: 14 0RF Rx Instructions: hospice furosemide [Lasix] 40 mg tablet 40 mg PO DAILY Qty: 14 0RF Rx Instructions: hospice morphine concentrate 100 mg/5 mL (20 mg/mL) solution See Rx Instructions PO Q1H PRN MDD 120 mg Qty: 30 0RF Rx Instructions: 0.25-1.0 ml orally every 1 hour, as needed; HOSPICE acetaminophen [Tylenol Extra Strength] 500 mg Tablet 1,000 mg PO QID PRN Discharge Instructions Additional Instructions: A hospice nurse will call and arrange to visit tonight. Please continue to followup with them regarding symptom and behavior control as well as options for placement. Referrals: Mehnaz Clifford NP [Primary Care Provider] - Medical Decision Making 88yo M with COPD, HTN, cardiac valvular disease, failure to thrive, on home hospice, presenting via EMS for agitation. History from EMS and daughter; patient unable to provide any history, he does deny any pain. Reportedly he became agitated and violent this evening. Hospice was not called prior to transport. Calm on arrival, denies pain. Goals of care discussed with daughter and confirmed DNR/DNI, comfort measures only, no bloodwork or medical workup. Family expresses frustration with his behavior at home and feeling unable to manage, would prefer him to be in a facility. Hospice contacted; patient discussed with hospice medical transcription supervisor, plan for discharge home with hospice nurse to visit tonight and help with symptom management at home. Plan discussed with family; they state he has been refusing medications at home which is likely part of the issue. Given 2mg IM haldol here prior to discharge. Discharged home; discharge instructions were reviewed with family. HPI General Mode of arrival: EMS . Date/Time Provider Initiated Documentation: 08/25/23 21:48 . Limitations to Documentation: altered mental status . Information obtained by: patient, family and EMS . HPI Narrative: 88yo M with COPD, HTN, cardiac valvular disease, failure to thrive, on home hospice, presenting via EMS for agitation. History from EMS and daughter; patient unable to provide any history, he does deny any pain. Reportedly he became agitated this evening, throwing things, hitting caregivers, stating that he did not want to take any of his medications and demanding to go to the hospital. This degree of agitation is abnormal for him. He is otherwise in his usual state of health. Related Data Home Medications Medication Instructions Recorded Confirmed acetaminophen 500 mg tablet 1,000 mg PO QID PRN 02/21/23 07/21/23 (Tylenol Extra Strength) mirtazapine 7.5 mg tablet 7.5 mg PO QHS #30 tabs 06/01/23 07/21/23 oxycodone 5 mg tablet 5 mg PO BID PRN pain #30 tabs 06/01/23 07/21/23 lorazepam 0.5 mg tablet 0.5 mg PO Q4H PRN PRN anxiety #10 07/25/23 tabs furosemide 20 mg tablet (Lasix) 20 mg PO DAILY #30 tabs 08/04/23 furosemide 40 mg tablet (Lasix) 40 mg PO DAILY #14 tabs 08/17/23 quetiapine 25 mg tablet (Seroquel) 25 mg PO BID #60 tabs 08/17/23 trazodone 150 mg tablet 150 mg PO QHS #14 tabs 08/17/23 morphine concentrate 100 mg/5 mL See Rx Instructions PO Q1H PRN #30 08/21/23 (20 mg/mL) oral solution mL Previous Rx's Medication Instructions Recorded mirtazapine 7.5 mg tablet 7.5 mg PO QHS #30 tabs 06/01/23 oxycodone 5 mg tablet 5 mg PO BID PRN pain #30 tabs 06/01/23 lorazepam 0.5 mg tablet 0.5 mg PO Q4H PRN PRN anxiety #10 07/25/23 tabs furosemide 20 mg tablet (Lasix) 20 mg PO DAILY #30 tabs 08/04/23 furosemide 40 mg tablet (Lasix) 40 mg PO DAILY #14 tabs 08/17/23 quetiapine 25 mg tablet (Seroquel) 25 mg PO BID #60 tabs 08/17/23 trazodone 150 mg tablet 150 mg PO QHS #14 tabs 08/17/23 morphine concentrate 100 mg/5 mL See Rx Instructions PO Q1H PRN #30 08/21/23 (20 mg/mL) oral solution mL Allergies Allergy/AdvReac Type Severity Reaction Status Date / Time Penicillins Allergy Mild HIVES A Verified 07/21/23 12:07 CHILD General Stated Complaint: GenMedical JOE: 4 Review of Systems Narrative: see HPI PFSH All Active Problems (Updated 08/25/23 @ 22:14 by Sandy Evans MD) Agitation (Acute) Hospice care (Acute) Palliative care encounter (Acute) ACP (advance care planning) (Acute) Decubitus ulcer, stage III (Acute) Failure to thrive in adult (Acute) Hypokalemia (Acute) ALDA (acute kidney injury) (Acute) Severe sepsis (Acute) Acute dehydration (Acute) Hypokalemia (Acute) Diarrhea (Acute) Acute renal failure (Acute) Status post hip replacement (Acute) Mitral murmur (Acute 02/15/17) Hyperplasia of prostate (Acute) Hyperlipidemia (Acute 08/20/12) History of tobacco use (Acute) Gout (Acute) Generalized osteoarthrosis (Acute) Generalized osteoarthrosis (Acute) Edentulous (Acute 10/25/17) Colonoscopy refused (Acute 10/25/17) Chronic obstructive lung disease (Acute) Cardiac murmur (Acute 10/25/17) Cardiac murmur, unspecified (Acute) ? of mitral reguritation Bilateral hearing loss (Acute 10/25/17) Hypertension (Chronic) Diarrhea (Acute) Chronic abdominal pain (Acute) Rectal mass (Acute) adenomatous polyp. 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 Gout (Chronic) Aortic stenosis (Chronic) mild echo 2022 Iron deficiency anemia due to chronic blood loss (Acute) Rectal bleeding (Acute) Hard of hearing (Acute) Villous adenoma (Acute ~12/27/22) Medical History Hx of flexible sigmoidoscopy 12/13/22 Cataract surgery bilat Surgical History History of surgery on arm R arm as a boy History of colonoscopy (~12/27/22) [place] Social History Smoking/Tobacco Use Status: Former Tobacco Use Quit Date: 09/18/64 Tobacco: How many years used: 20 Smoking risk assessment performed?: Yes Alcohol Intake: never Drug use: Never Substance use type: does not use Housing: condominium Do you feel safe at home: Yes Do you feel safe in your relationship?: Yes Course Vital Signs Vital signs: Vital Signs Temperature 36.6 C 08/25/23 21:38 Pulse 105 H 08/25/23 21:38 Respiratory Rate 18 08/25/23 21:38 Blood Pressure 121/47 L 08/25/23 21:38 Pulse Oximetry 97 08/25/23 21:38 Temperature 36.4 C 08/25/23 21:44 Temperature Source Oral 08/25/23 21:44 Pulse 109 H 08/25/23 21:44 Respiratory Rate 18 08/25/23 21:44 Respiratory Effort Normal 08/25/23 21:44 Blood Pressure 113/62 08/25/23 21:44 Blood Pressure Position Supine 08/25/23 21:44 Pulse Oximetry 97 08/25/23 21:44 Oxygen Delivery Method Room Air 08/25/23 21:44 Oxygen Flow Rate 0 08/25/23 21:38 Pain Level 0 08/25/23 21:44
[2023-08-25] MEDS: Haloperidol 5 MG/ML VIAL 2 MG IM (22:14)
== END 2023-08-25 22:43 | disposition home or self-care (01) ==
PROVIDERS: Emergency Provider Student in an Organized Health Care Education/Training Program; PCP Nurse Practitioner Family
DX: R45.1 Restlessness and agitation (principal)
CPT/HCPCS: 96372; 99284; J1630

== ENCOUNTER 2023-08-29 13:38 | Inpatient (IN) | payer OTHER, SELFPAY ==
--- NOTE | 2023-08-29 13:40 | HPE_ITS ---
Date of service: 08/29/23 Time of Service: 13:41 Assessment and Plan Assessment and plan (1) Failure to thrive in adult: Status: Acute Assessment and plan: He is on hospice and has been declining at home. (2) Agitation: Status: Acute Assessment and plan: He has been increasingly more agitated. Risperidone 1 mg TID. Adjust as needed. PRN haldol and lorazepam ordered. 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 (5) Hypoalbuminemia due to protein-calorie malnutrition: Status: Acute Assessment and plan: Albumin low at 2. (6) Edema due to hypoalbuminemia: Status: Acute (7) Pressure ulcer: Status: Acute Assessment and plan: Multiple wounds. Pressure ulcer to sacrum, bilateral heels. Wound to the dorsal aspect of the left foot. Wound consult. (8) Back pain: Status: Acute Assessment and plan: Wearing fentanyl. Has PRN MS ordered. Titrate as needed. (9) Insomnia: Status: Acute Assessment and plan: He has been agitated and restless. Was on trazodone at home with little effect despite escalating doses. Trial lunesta. (10) Hospice care: Status: Acute Assessment and plan: Geronimo is an 88 year old man with a past medical hx significant for COPD, valvular disease, anemia, FTT, who has multiple pressure ulcers including on his sacrum, bilateral heels and a wound on his left dorsal foot. He was discharged home from [facility] on hospice about 1 month ago with COVID and bacteremia. He is on hospice for protein-calorie malnutrition. His albumin is 2. He has been declining at home since he was discharged. He has become more agitated, restless, weak and having falls. His family is having difficulty caring for him despite taking turns. He is admitted to [facility] for Hospice Respite. His medications will be adjusted during his stay. His family wants to honor his wishes and keep him home, however, they have considered SNF placement on occasion. They have been given long-term medicaid application (?if it is completed). They currently plan to take him home, however, he may need placement vs hiring more caregivers through [facility] if he qualifies. Hospice will follow while he is in the hospital. History of Present Illness Narrative: Geronimo is an 88 year old man with a past medical hx significant for COPD, valvular disease, anemia, FTT, who has multiple pressure ulcers including on his sacrum, bilateral heels and a wound on his left dorsal foot. He was discharged home from [facility] on hospice about 1 month ago with COVID and bacteremia. He is on hospice for protein-calorie malnutrition. His albumin is 2. He has been declining at home since he was discharged. His family has been taking turns taking care of him. He cannot be left alone. He has been increasingly more agitated. Hospice has been working to manage his agitation. His family took him to the ED last week due to agitation (they did not call hospice). He was seen at home earlier today. He was sleeping at the time of the visit. He did not sleep well last night, he was restless. The hospice [facility] attempted to bathe him and remove soiled dressings but he refused the care. He is weaker. He is having falls. He has not been awake enough to eat today. Discussed the option of respite with his family. They are in agreement with him going into the hospital for hospice respite for up to 5 days. While he is in the hospital, his medications will be adjusted to help with the agitation/restlessness and sleep. Review of Systems Narrative: unable due to sleeping during visit. Hx obtained from family. 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 (Acute) Agitation (Acute) Hospice care (Acute) Palliative care encounter (Acute) ACP (advance care planning) (Acute) Decubitus ulcer, stage III (Acute) Failure to thrive in adult (Acute) Hypokalemia (Acute) ALDA (acute kidney injury) (Acute) Severe sepsis (Acute) Acute dehydration (Acute) Hypokalemia (Acute) Diarrhea (Acute) Acute renal failure (Acute) Status post hip replacement (Acute) Mitral murmur (Acute 02/15/17) Hyperplasia of prostate (Acute) Hyperlipidemia (Acute 08/20/12) History of tobacco use (Acute) Gout (Acute) Generalized osteoarthrosis (Acute) Generalized osteoarthrosis (Acute) Edentulous (Acute 10/25/17) Colonoscopy refused (Acute 10/25/17) Chronic obstructive lung disease (Acute) Cardiac murmur (Acute 10/25/17) Cardiac murmur, unspecified (Acute) ? of mitral reguritation Bilateral hearing loss (Acute 10/25/17) Hypertension (Chronic) Diarrhea (Acute) Chronic abdominal pain (Acute) Rectal mass (Acute) adenomatous polyp. 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 Gout (Chronic) Aortic stenosis (Chronic) mild echo 2022 Iron deficiency anemia due to chronic blood loss (Acute) Rectal bleeding (Acute) Hard of hearing (Acute) Villous adenoma (Acute ~12/27/22) Medical History Hx of flexible sigmoidoscopy 12/13/22 Cataract surgery bilat Surgical History History of surgery on arm R arm as a boy History of colonoscopy (~12/27/22) [place] Social History Smoking/Tobacco Use Status: Former Tobacco Use Quit Date: 09/18/64 Tobacco: How many years used: 20 Smoking risk assessment performed?: Yes Alcohol Intake: never Drug use: Never Substance use type: does not use Housing: house Do you feel safe at home: Yes Do you feel safe in your relationship?: Yes Meds Allergies and Home Medications Allergies Allergy/AdvReac Type Severity Reaction Status Date / Time Penicillins Allergy Mild HIVES A Verified 07/21/23 12:07 CHILD Home Medications Medication Instructions Recorded Confirmed Type acetaminophen 500 mg tablet 1,000 mg PO QID PRN 02/21/23 07/21/23 History (Tylenol Extra Strength) mirtazapine 7.5 mg tablet 7.5 mg PO QHS #30 tabs 06/01/23 07/21/23 Rx oxycodone 5 mg tablet 5 mg PO BID PRN pain #30 tabs 06/01/23 07/21/23 Rx lorazepam 0.5 mg tablet 0.5 mg PO Q4H PRN PRN anxiety #10 07/25/23 Rx tabs furosemide 20 mg tablet (Lasix) 20 mg PO DAILY #30 tabs 08/04/23 Rx furosemide 40 mg tablet (Lasix) 40 mg PO DAILY #14 tabs 08/17/23 Rx quetiapine 25 mg tablet (Seroquel) 25 mg PO BID #60 tabs 08/17/23 Rx trazodone 150 mg tablet 150 mg PO QHS #14 tabs 08/17/23 Rx morphine concentrate 100 mg/5 mL See Rx Instructions PO Q1H PRN #30 08/21/23 Rx (20 mg/mL) oral solution mL fentanyl 12 mcg/hr transdermal 1 patch transdermal Q72H #5 ea 08/26/23 Rx patch risperidone 1 mg/mL oral solution 1 mg PO TID & HS #30 mL 08/26/23 Rx Exam Narrative Exam Narrative: General: elderly man, laying in bed, asleep, did not awaken for the exam. Skin is pale. HEENT: normocephalic, atraumatic, EOMI, mm dry. Cardiovascular: tachycardic, +murmur. Respiratory: respirations appear even and unlabored at rest. Lungs sound diminished on limited anterior and lateral exam. GI: +BS, abd soft, nondistended, nontender on palpation. Extremities: 2-3+ pitting edema to BLEs. Skin: purpura scattered across BLEs and trunk. Dressing to L dorsal foot C/D/I. Bilateral heel dressings coming off, appears to have dry feces to plantar feet. Sacral wound not viewed. Time Spent Time spent with Patient: >75 minutes Time was spent: preparing to see the patient(eg.review tests), obtaining and/or reviewing separately otained hiistory, ordering medications,tests, procedures, referring, communicating with other health customer care associate and care coordination
[2023-08-29 14:26] LABS: Source Nasal/Nares
[2023-08-29 14:27] VITALS: BP 128/69; PULSE 98; RESP 15; TEMP 36.2; O2SAT 95
[2023-08-29 14:31] VITALS: BP 128/69; PULSE 98; RESP 15; TEMP 36.2; O2SAT 95
[2023-08-29 15:13] LABS: COVID-19 PCR POSITIVE (Negative)
[2023-08-29] MEDS: fentaNYL 25 MCG PATCH TD (17:26)
[2023-08-29] MEDS: Normal Saline Flush 10 ML SYR (17:54)
[2023-08-29] MEDS: Patch Removal 2 EACH TD (17:55)
[2023-08-29] MEDS: risperiDONE 1 MG TAB PO (19:54)
[2023-08-29 20:00] VITALS: PULSE 115; RESP 22; O2SAT 93
[2023-08-29] MEDS: LORazepam 2 MG/ML VIAL IV/SC (20:20)
[2023-08-30] VITALS: PULSE 100; RESP 20; O2SAT 95
[2023-08-30 04:48] VITALS: PULSE 98; RESP 20; TEMP 37.2; O2SAT 92
--- NOTE | 2023-08-30 08:49 | PDOC.CMPRO ---
Date of service: 08/30/23 Time of Service: 08:49 Care Management Progress Note Progress Note Text Progress Note Text: S/O: Geronimo is on covid precautions, therefore CM did not meet with him in person. Per report, he has been more alert, although he has been fidgety, anxious, and restless. He is a 2 person assist, and has multiple wounds/pressure ulcers present on his body, which are being cared for. Per hospice, his family plans to keep him home as long as they can, although it has reportedly been difficult for them to provide adequate care at home. Per report, Geronimo does not want to go to a nursing facility. CM will continue to follow. A: Geronimo is an 88 year male admitted to [facility] for hospice respite. P: Geronimo will likely return home where his family will resume his care. He will transport via EMS, and will resume services from hospice, who will follow him on this admission.
[2023-08-30] MEDS: risperiDONE 1 MG TAB PO ×3 (09:01→19:25)
[2023-08-30] MEDS: LORazepam 1 MG TAB PO ×2 (16:27→18:14)
[2023-08-31] MEDS: LORazepam 1 MG TAB PO ×2 (01:40→08:40)
[2023-08-31] MEDS: Furosemide 40 MG TAB 60 MG PO (08:40)
[2023-08-31] MEDS: risperiDONE 1 MG TAB PO ×3 (08:40→19:38)
--- NOTE | 2023-08-31 09:51 | PDOC.CMPRO ---
Date of service: 08/31/23 Time of Service: 09:51 Care Management Progress Note Progress Note Text Progress Note Text: S/O: Geronimo remains on covid precautions, therefore CM did not meet with him. Per report, he has been calm and appropriate. He remains bed bound, and is eating minimally. He remains on hospice respite at this time. CM will continue to follow. A: Geronimo is an 88 year male admitted to [facility] for hospice respite. P: Geronimo will likely return home where his family will resume his care. He will transport via EMS, and will resume services from hospice, who will follow him on this admission.
--- NOTE | 2023-08-31 15:40 | W.NUTRFU ---
Nutrition Note NOTE: Received
[2023-09-01] MEDS: LORazepam 1 MG TAB PO ×2 (02:57→23:09)
[2023-09-01] MEDS: Furosemide 40 MG TAB 60 MG PO (08:26)
[2023-09-01] MEDS: risperiDONE 1 MG TAB PO ×3 (08:26→20:27)
--- NOTE | 2023-09-01 11:01 | PDOC.CMPRO ---
Date of service: 09/01/23 Time of Service: 11:02 Care Management Progress Note Progress Note Text Progress Note Text: S/O: Geronimo was removed from covid precautions today, after consulting with infectious disease and hospice. Per RN, he is bed bound, and is calm until he is moved. His RN stated that he does resist care, but if he is properly medicated prior to moving him (in order to provide personal care), he allows it. He is having a wound consult today, as he has multiple wounds on his body. Per RN, he is not eating much, only a couple of bites of food per day. CM will continue to follow. A: Geronimo is an 88 year male admitted to [facility] for hospice respite. P: Geronimo will likely return home where his family will resume his care. He will transport via EMS, and will resume services from hospice, who will follow him on this admission.
[2023-09-01] MEDS: fentaNYL 25 MCG PATCH TD (16:10)
--- NOTE | 2023-09-01 17:27 | WOUNDCONS ---
Date of service: 09/01/23 Time of Service: 16:30 Wound Initial Evaluation Narrative Narrative: Pt is an 88 year old male admitted for Respite care. The pt was admitted for increased agitation at home and failure to thrive. He also has several wounds. Pt is not able to consent to photos and family is not available. Pt is on Airborne precautions from recent positive covid results. The pt also has a history of hyperplasia of prostate, History of tobacco use, Hypertension, Villous adenoma. The pt has scattered purpura
--- NOTE | 2023-09-01 17:59 | WOUNDCONS_ITS ---
Date of service: 09/01/23 Time of Service: 17:00 Wound Initial Evaluation Narrative Narrative: Pt is an 88 year old male who was admitted for Respite due to increase in agitation and failure to thrive. Pt has multiple unstageagle wounds on legs, heels, and sacrum. He also has scattered purpura covering his body. He is not able to give consent for photos and family is not present. He is also on Airborne precautions for recent Covid. 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 Wound Left Lateral Tib/Fib(lower leg): Wound Type: Pressure Ulcer Pressure Ulcer Stage: Eschar/Unstageable Wound General Appearance: Blackened Wound Bed Greatest Portion: Black (Eschar) Wound Surrounding Tissue Appearance: [place] Percent of Wound Bed Eschar/Black: 100 Wound Drainage Amount: Minimal Wound Drainage Odor: None/Absent Wound Drainage Description: Brown Wound Topical Solution/Irrigant: Other (Anasept) Wound Debridement Method: Gauze Wound Debridement Result: Necrotic Remains Wound Debridement Amount of Tissue Removed: Minimal Left Dorsal Foot: Wound Type: Pressure Ulcer Pressure Ulcer Stage: Eschar/Unstageable Wound General Appearance: Blackened and Necrotic (yellow slough) Wound Bed Greatest Portion: Yellow (Slough) Wound Bed Lesser Portion: Black (Eschar) Wound Surrounding Tissue Appearance: Bright Red Percent of Wound Bed Slough/Yellow: 90 Percent of Wound Bed Eschar/Black: 10 Wound Drainage Amount: Minimal Wound Drainage Odor: Pungent Wound Drainage Description: Brown Wound Topical Solution/Irrigant: Other (Anasept) Wound Debridement Method: Gauze Wound Debridement Result: Yellow Sloughing Remains and Necrotic Remains Wound Debridement Amount of Tissue Removed: Minimal left heel: Wound Type: Pressure Ulcer Pressure Ulcer Stage: Eschar/Unstageable Wound General Appearance: Blackened and Necrotic Wound Bed Greatest Portion: Black (Eschar) Wound Surrounding Tissue Appearance: Bright Red Percent of Wound Bed Eschar/Black: 100 Wound Drainage Amount: Minimal Wound Drainage Odor: None/Absent Wound Drainage Description: Brown Wound Topical Solution/Irrigant: Other (Anasept) Wound Debridement Method: Gauze Wound Debridement Result: Necrotic Remains Wound Debridement Amount of Tissue Removed: Minimal Right heel and achilles tendon: Wound Type: Pressure Ulcer Pressure Ulcer Stage: Eschar/Unstageable Wound General Appearance: Reddened, Blackened and Necrotic Wound Bed Greatest Portion: Black (Eschar) Wound Surrounding Tissue Appearance: Bright Red Percent of Wound Bed Eschar/Black: 100 Wound Drainage Amount: Minimal Wound Drainage Odor: None/Absent Wound Drainage Description: Brown Wound Topical Solution/Irrigant: Other (Anasept) Wound Debridement Method: Gauze Wound Debridement Result: Necrotic Remains Wound Debridement Amount of Tissue Removed: None coccyx area: Wound Type: Pressure Ulcer Pressure Ulcer Stage: Eschar/Unstageable Wound General Appearance: Blackened and Necrotic Wound Bed Greatest Portion: Black (Eschar) Wound Surrounding Tissue Appearance: Bright Red Percent of Wound Bed Eschar/Black: 100 Wound Length: 0.94 in Wound Width: 0.79 in Wound Depth: 0.2 in Wound Drainage Amount: Minimal Wound Drainage Odor: None/Absent Wound Drainage Description: Brown Wound Topical Solution/Irrigant: Other (Anasept) Wound Debridement Method: Gauze Wound Debridement Result: Necrotic Remains Wound Debridement Amount of Tissue Removed: None Circulation, Sensation, Motion Edema Degree: Other (none) Sensation Description: Pain Pain Additional Other Comments: Pt unable to quantify discomfort but does pull away and moans at times. Wound Summary Wound Summary: After reviewing the wound consult from July 2023, there is noted progressive worsening of the wounds. They are all covered with escar. The dorsum of the left foot is foul to the smell. There does not appear to be any improvement in the wounds. Photo Photo: Pt not able to consent. Treatment/Dressing Change Topicals/Ointments: Anasept Gel Cleanse With: Anasept Dressing Types: Mepilex w/Border Nutrition Education Reviewed Nutrition Education: No Note: Pt is here on Hospice with a diagnosis of malnutrition. Recomendation Recomendation:: 1. Clean all wounds on buttocks and on legs with Anasept cleanser. 2. Pat dry. 3. Use skin prep on periwound skin. 4. Apply nickel thickness of Anasept gel to wounds. 5. Change every 5-7 days and prn. Reposition pt at least every 2 hours using wedges and pillows to for pressure relief. Apply booties bilaterally when available. May consider dressing with charcoal for the dorsal left foot to aid in controlling the odor. Treatment Time Time Total Time Spent with Patient: one hour
[2023-09-01] MEDS: fentaNYL 12 MCG PATCH TD (18:01)
[2023-09-01 19:48] LABS: Source Nasopharynx
[2023-09-01 19:52] LABS: COVID-19 PCR Negative (Negative)
[2023-09-02] MEDS: LORazepam 1 MG TAB PO (03:20)
[2023-09-02] MEDS: risperiDONE 1 MG TAB PO ×2 (09:46→13:41)
[2023-09-02] MEDS: Furosemide 40 MG TAB 60 MG PO (09:47)
[2023-09-02] MEDS: LORazepam 2 MG/ML VIAL IV/SC ×2 (13:42→23:47)
[2023-09-03] MEDS: LORazepam 2 MG/ML VIAL IV/SC ×2 (07:51→10:11)
--- NOTE | 2023-09-03 10:44 | W.PM.DS.N ---
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 Course Hospital Course: Geronimo is an 88 year old man with a past medical hx significant for COPD, valvular disease, anemia, FTT, who has multiple pressure ulcers. He was admitted to [facility] for Hospice Respite 5 days ago for increasing agitation. His family was having difficulty taking care of him at home. Since he has been in the hospital, he has declined significantly. He has not been eating for days. He is less alert. He has developed more pressure ulcers. He is having more discomfort and requiring frequent MS doses. His family wants to honor his wishes and get him home for end of life care. They have a hospital bed. They have enough caregivers to take him home with hospice support. He will be started on a CADD pump prior to discharge. Hospice will arrange for transportation home via ambulance. Home Meds and New Rx's Prescriptions: New scopolamine base 1 mg over 3 days Patch 3 Day 1 mg transdermal Q72H PRNQty: 2 0RF Rx Instructions: hospice Continued lorazepam 0.5 mg tablet 0.5 mg PO Q4H PRN MDD 3 mg PRN (Reason: anxiety) Qty: 10 0RF Rx Instructions: hospice morphine concentrate 100 mg/5 mL (20 mg/mL) solution See Rx Instructions PO Q1H PRN MDD 120 mg Qty: 30 0RF Rx Instructions: 0.25-1.0 ml orally every 1 hour, as needed; HOSPICE hydromorphone 2 mg/mL syringe 0.3 - 2 mg subcut Q1H MDD 24 ml PRN (Reason: pain) Qty: 100 0RF Rx Instructions: Hospice CADD pump basal rate: 0.3-2 mg/hr Bolus: 0.3-1 mg q 15min PRN Changed risperidone 1 mg/mL solution 1 mg PO TID & HS PRN (Reason: agitation) Qty: 30 0RF Rx Instructions: hospice Discontinued mirtazapine 7.5 mg tablet 7.5 mg PO QHS Qty: 30 1RF furosemide [Lasix] 20 mg tablet 20 mg PO DAILY Qty: 30 1RF quetiapine [Seroquel] 25 mg tablet 25 mg PO BID Qty: 60 0RF Hold Instructions: Changed by Provider Rx Instructions: hospice trazodone 150 mg tablet 150 mg PO QHS Qty: 14 0RF Rx Instructions: hospice furosemide [Lasix] 40 mg tablet 40 mg PO DAILY Qty: 14 0RF Rx Instructions: hospice fentanyl 12 mcg/hr patch 72 hour 1 patch transdermal Q72H MDD 24 mcg Qty: 5 0RF Rx Instructions: hospice may apply second patch if one ineffective acetaminophen [Tylenol Extra Strength] 500 mg Tablet 1,000 mg PO QID PRN Discharge Instructions Instructions: Hospice Care (GEN) Additional Instructions: Call hospice with any questions or concerns ([phone]) Referrals: Emerald Isidro MD [ [facility] STAFF PHYSICIAN] - (Hospice will follow up with you at home ) Activity:: Bed rest Equipment/Supplies:: No Equipment Needed Diet:: As Tolerated Discharge Orders Discharge Orders: Discharge Order (Routine); Ordered 09/03/23 Ordered By: Venus Kilpatrick DS: Summary Time Spent with Patient providing and/or coordinating discharge services: Greater than 30 minutes Status at Discharge Functional status at discharge: bed bound Overall status at discharge: other (declining) Mental Status: other (minimally responsive) Speech and Movement: other Mood: other (minimally responsive) Affect: other (Appears comfortable, did not open eyes) Exam Narrative Exam Narrative: General: elderly man, laying in bed, Skin is pale. Answered a couple of questions with brief response, did not know where he was. HEENT: normocephalic, atraumatic, eyes remained closed, mm dry. Cardiovascular: tachycardic, irregularly irregular, +murmur. Respiratory: respirations appear even and unlabored at rest. Lungs sound diminished on limited anterior and lateral exam. GI: +BS, abd soft, nondistended, nontender on palpation. Extremities: no edema to BLEs. Skin: purpura scattered across BLEs and trunk. Dressings intact to multiple wounds on lower extremities and feet. Sacral wound not viewed. Psych Mental Status: other (minimally responsive) Speech and Movement: other Mood: other (minimally responsive) Affect: other (Appears comfortable, did not open eyes) DS: Data Vitals/I&O Vitals and I&O: Vital Signs Temperature 37.2 C 08/30/23 04:48 Temperature Source Tympanic 08/30/23 04:48 Pulse 98 H 08/30/23 04:48 Pulse Rhythm Irregular 09/01/23 21:44 Respiratory Rate 20 08/30/23 04:48 Respiratory Effort Short of Breath 09/01/23 21:44 Respiratory Depth Normal 09/01/23 21:44 Respiratory Pattern Normal 09/01/23 21:44 Blood Pressure 128/69 08/29/23 14:31 Pulse Oximetry 92 08/30/23 04:48 Oxygen Delivery Method Room Air 08/30/23 04:48 Oxygen Flow Rate 0 08/30/23 04:48 Pain Level 7 08/29/23 14:56 Comment pt restless and anxious at this time. He was attempting to get out of bed by self. Staff assisted him to the commode. 08/29/23 20:00 Intake & Output 09/02/23 09/02/23 09/03/23 11:59 23:59 11:59 Other: Urine Color Yellow Yellow Urine Appearance Clear Clear Urine Odor None None Comment Large amount of urine and moderate bowel movement. Stool Size Moderate Small Stool Characteristics Soft Soft Brown Voiding Methods Diaper Diaper Diaper Incontinent Incontinent Incontinent PFSH All Active Problems (Updated 09/03/23 @ 11:28 by Venus Kilpatrick NP) Insomnia (Acute) Back pain (Acute) Pressure ulcer (Acute) Edema due to hypoalbuminemia (Acute) Hypoalbuminemia due to protein-calorie malnutrition (Acute) COVID-19 (Acute) Mitral valve stenosis and aortic valve stenosis (Acute) Agitation (Acute) Hospice care (Acute) Palliative care encounter (Acute) ACP (advance care planning) (Acute) Decubitus ulcer, stage III (Acute) Failure to thrive in adult (Acute) Hypokalemia (Acute) ALDA (acute kidney injury) (Acute) Severe sepsis (Acute) Acute dehydration (Acute) Hypokalemia (Acute) Diarrhea (Acute) Acute renal failure (Acute) Status post hip replacement (Acute) Mitral murmur (Acute 02/15/17) Hyperplasia of prostate (Acute) Hyperlipidemia (Acute 08/20/12) History of tobacco use (Acute) Gout (Acute) Generalized osteoarthrosis (Acute) Generalized osteoarthrosis (Acute) Edentulous (Acute 10/25/17) Colonoscopy refused (Acute 10/25/17) Chronic obstructive lung disease (Acute) Cardiac murmur (Acute 10/25/17) Cardiac murmur, unspecified (Acute) ? of mitral reguritation Bilateral hearing loss (Acute 10/25/17) Hypertension (Chronic) Diarrhea (Acute) Chronic abdominal pain (Acute) Rectal mass (Acute) adenomatous polyp. 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 Gout (Chronic) Aortic stenosis (Chronic) mild echo 2022 Iron deficiency anemia due to chronic blood loss (Acute) Rectal bleeding (Acute) Hard of hearing (Acute) Villous adenoma (Acute ~12/27/22) Medical History Hx of flexible sigmoidoscopy 12/13/22 Cataract surgery bilat Surgical History History of surgery on arm R arm as a boy History of colonoscopy (~12/27/22) [place] Social History Smoking/Tobacco Use Status: Former Tobacco Use Quit Date: 09/18/64 Tobacco: How many years used: 20 Smoking risk assessment performed?: Yes Alcohol Intake: never Drug use: Never Substance use type: does not use Housing: house Do you feel safe at home: Yes Do you feel safe in your relationship?: Yes Time Spent with Patient Time Spent with Patient: <45 minutes Time was spent: preparing to see the patient(eg.review tests), ordering medications,tests, procedures, referring, communicating with other health client care consultant, indepentently interpreting results and care coordination
== END 2023-09-03 13:43 | disposition hospice, home (50) | DRG 884 ==
PROVIDERS: Nurse Practitioner; Admitting Provider Family Medicine; PCP Nurse Practitioner Family; Visit Provider Family Medicine
DX: R45.1 Restlessness and agitation (principal); U07.1 COVID-19; E46 Unspecified protein-calorie malnutrition; R62.7 Adult failure to thrive; I08.0 Rheumatic disorders of both mitral and aortic valves; M54.9 Dorsalgia, unspecified; G47.00 Insomnia, unspecified; R60.0 Localized edema; R29.6 Repeated falls; J44.9 Chronic obstructive pulmonary disease, unspecified; D64.9 Anemia, unspecified; E78.5 Hyperlipidemia, unspecified; M15.9 Polyosteoarthritis, unspecified; Z87.891 Personal history of nicotine dependence; I10 Essential (primary) hypertension; M89.29 Other disorders of bone development and growth, multiple sites; R10.9 Unspecified abdominal pain; M1A.9XX0 Chronic gout, unspecified, without tophus (tophi); L89.150 Pressure ulcer of sacral region, unstageable; L89.620 Pressure ulcer of left heel, unstageable; L89.610 Pressure ulcer of right heel, unstageable; L89.890 Pressure ulcer of other site, unstageable; Z51.5 Encounter for palliative care; Z68.20 Body mass index [BMI] 20.0-20.9, adult
CPT/HCPCS: 00123; 87635; J2060; J3490